=== PATIENT | male | born 1960 | race Caucasian/White ===

== ENCOUNTER 2019-11-15 08:42 | Inpatient (IN) ==
[2019-11-15] MEDS ORDERED: 0.9 % Sodium Chloride 1,000 ML IVC ONE (08:46)
[2019-11-15 08:59] LABS: Hematocrit 36.4 % (37.5-50.1); Hemoglobin 10.7 g/dL (12.9-16.9); Mean Corpuscular HGB Conc 29.4 g/dL (31.6-35.5); Mean Corpuscular Hemoglobin 26.2 pg (28.0-33.3); Mean Corpuscular Volume 89.2 fL (83.0-100.0); Mean Platelet Volume 10.7 fL (9.4-12.4); Platelet Count 199 K/mcL (140-400); Red Blood Count 4.08 M/mcL (4.19-5.50); Red Cell Distribution Width 14.6 % (11.5-14.5); White Blood Count 9.7 K/mcL (4.3-11.1)
[2019-11-15] MEDS ORDERED: Ipratropium/Albuterol Neb 3 ML IH ONE (09:06)
[2019-11-15 09:08] LABS: Prothrombin Time 10.9 Seconds (9.4-12.1)
[2019-11-15 09:31] LABS: Alanine Aminotransferase 17 Units/L (7-52); Albumin/Globulin Ratio 1.5 (1.1-2.2); Alkaline Phosphatase 59 Units/L (34-104); Aspartate Amino Transferase 14 Units/L (13-39); BUN/Creatinine Ratio 14 (6-26); Bilirubin,Indirect 0.3 mg/dL (0.0-1.0); Bilirubin,Total 0.3 mg/dL (0.3-1.0); Blood Urea Nitrogen 51 mg/dL (6-20); Calcium 9.4 mg/dL (8.6-10.3); Carbon Dioxide 27 mEq/L (23-29); Chloride 102 mEq/L (98-107); Globulin 2.7 g/dL (2.4-3.5); Glucose 96 mg/dL (70-105); Osmolality,Calculated 304 (280-300); Potassium 4.7 mEq/L (3.5-5.1); Sodium 140 mEq/L (136-145); Total Protein 6.7 g/dL (6.4-8.9); eGFR For African Americans 20 (> 60); eGFR For Non-African Americans 17 (> 60)
[2019-11-15 09:32] LABS: Troponin I < 0.03 ng/mL (< 0.04)
[2019-11-15 09:43] LABS: ABG Base Excess 0 mEq/L (-2 to 3); ABG HCO3 28 mEq/L (21-27); ABG Oxygen Saturation 91 % (95-98); ABG PCO2 56 mmHg (35-45); ABG PO2 68 mmHg (85-104); ABG TCO2 29 mEq/L (20-26)
[2019-11-15 11:38] LABS: Amphetamine Screen,Urine Negative ng/mL (Cutoff=1000); Barbiturate Screen,Urine Negative ng/mL (Cutoff=200); Benzodiazepines Screen,Urine Negative ng/mL (Cutoff=200); Cannabinoid Screen,Urine Negative ng/mL (Cutoff = 50); Cocaine Screen,Urine Negative ng/mL (Cutoff= 300); Opiate Screen,Urine Negative ng/mL (Cutoff=300); Phencyclidine Screen,Urine Negative ng/mL (Cutoff=25)
[2019-11-15 12:00] LABS: Bacteria,Urine Few per hpf (None-Few); Bilirubin,Urine Negative (Negative); Blood,Urine Trace (Negative); Calcium Oxalate Crystals,Urine Present; Clarity,Urine Clear (Clear); Color,Urine Yellow (Yellow); Glucose,Urine (UA) Normal (Normal); Hyaline Casts,Urine Many per lpf (None Seen); Ketones,Urine Negative (Negative); Leukocyte Esterase,Urine Negative (Negative); Mucus,Urine Few per lpf (None-Few); Nitrite,Urine Negative (Negative); PH,Urine 5.5 pH Units (5.0-8.0); Protein,Urine 50 mg/dL (Neg-Trace); RBC,Urine 0-3 per hpf (0-3); Specific Gravity,Urine 1.023 (1.010-1.025); Squamous Epithelial Cell,Urine Few per hpf (None-Few); Urobilinogen,Urine Normal (Normal)
[2019-11-15 13:12] LABS: Creatine Kinase 153 Units/L (30-223)
[2019-11-15 13:44] LABS: Adenovirus Not Detected (Not Detect); Bordetella Pertussis Not Detected (Not Detect); Chlamydophila pneumoniae Not Detected (Not Detect); Coronavirus 229E Not Detected (Not Detect); Coronavirus HKU1 Not Detected (Not Detect); Coronavirus NL63 Not Detected (Not Detect); Coronavirus OC43 Not Detected (Not Detect); Human Metapneumovirus Not Detected (Not Detect); Human Rhinovirus/Enterovirus Not Detected (Not Detect); Influenza A Subtype 2009 H1 Not Detected (Not Detect); Influenza B Not Detected (Not Detect); Mycoplasma pneumoniae Not Detected (Not Detect); Parainfluenza Virus 1 Not Detected (Not Detect); Parainfluenza Virus 2 Not Detected (Not Detect); Parainfluenza Virus 3 Not Detected (Not Detect); Parainfluenza Virus 4 Not Detected (Not Detect); Respiratory Syncytial Virus Not Detected (Not Detect)
[2019-11-15] MEDS ORDERED: Naloxone 0.4 MG/ML INJ IVP PRN ×2 (14:11→14:12)
[2019-11-15] MEDS ORDERED: Ondansetron 4 MG/2 ML VIAL IVP PRN (14:12)
[2019-11-15] MEDS ORDERED: D5% in Water 1,000 ML IVC PRN (15:20)
[2019-11-15] MEDS ORDERED: Dextrose Gel 15 GM/37.5 ML TUBE PO PRN ×2 (15:20)
[2019-11-15] MEDS ORDERED: *HR* Dextrose 50 % in Water (Vial) 50 ML VIAL IVP PRN (15:20)
[2019-11-15 15:40] LABS: ABG Base Excess 1 mEq/L (-2 to 3); ABG HCO3 29 mEq/L (21-27); ABG Oxygen Saturation 99 % (95-98); ABG PCO2 62 mmHg (35-45); ABG PH 7.28 pH Units (7.32-7.45); ABG PO2 134 mmHg (85-104); ABG TCO2 31 mEq/L (20-26); Blood Gas Modality avaps; Blood Gas Pressure Support 35 cm H2O; Blood Gas VT 500 cc
[2019-11-15] MEDS: Ipratropium/Albuterol Neb 3 ML IH SCH ×3 (15:55→23:21)
[2019-11-15] MEDS: 0.9 % Sodium Chloride 1,000 ML IVC SCH (18:02)
[2019-11-15] MEDS: *HR* Heparin 5,000 UNIT/ML VIAL SQ SCH (18:02)
[2019-11-15] MEDS: Insulin LISPRO 300 UNITS/3 ML VIAL SQ SCH ×3 (18:05→20:39)
[2019-11-15 21:06] LABS: Protein/Creatinine Ratio,Urine 0.3 mg/mg (0.00-0.20); Sodium, Urine 109.7 mEq/L
[2019-11-16 03:27] LABS: Basophils % 0.1 %; Eosinophils # 0.1 K/mcL (0.0-0.6); Eosinophils % 1.5 %; Hematocrit 32.9 % (37.5-50.1); Hemoglobin 9.9 g/dL (12.9-16.9); Immature Granulocytes % 0.1 % (0-4); Lymphocytes # 1.5 K/mcL (0.6-4.6); Lymphocytes % 22.9 %; Mean Corpuscular HGB Conc 30.1 g/dL (31.6-35.5); Mean Corpuscular Hemoglobin 26.4 pg (28.0-33.3); Mean Corpuscular Volume 87.7 fL (83.0-100.0); Mean Platelet Volume 11.2 fL (9.4-12.4); Monocytes # 0.4 K/mcL (0.0-1.3); Monocytes % 6.6 %; Neutrophils # 4.6 K/mcL (1.6-8.9); Platelet Count 199 K/mcL (140-400); Red Blood Count 3.75 M/mcL (4.19-5.50); Red Cell Distribution Width 14.8 % (11.5-14.5); Segmented Neutrophils % 68.8 %; White Blood Count 6.7 K/mcL (4.3-11.1)
[2019-11-16 03:51] LABS: Calcium 8.8 mg/dL (8.6-10.3); Phosphorous 3.8 mg/dL (2.7-4.5); Potassium 4.4 mEq/L (3.5-5.1)
[2019-11-16] MEDS: Ipratropium/Albuterol Neb 3 ML IH SCH ×6 (03:53→23:32)
[2019-11-16 04:07] LABS: Folate 12.1 ng/mL (3.0-16.0)
[2019-11-16] MEDS: Insulin LISPRO 300 UNITS/3 ML VIAL SQ SCH ×6 (05:57→20:33)
[2019-11-16] MEDS: *HR* Heparin 5,000 UNIT/ML VIAL SQ SCH ×2 (06:02→20:33)
[2019-11-16] MEDS: 0.9 % Sodium Chloride 1,000 ML IVC SCH (08:11)
[2019-11-16] MEDS: Acetylcysteine 10% 2 ML INHSOL IH SCH ×4 (10:52→23:31)
[2019-11-16] MEDS ORDERED: *HR* OxyCODONE/APAP 10/325 TABLET PO PRN (15:45)
[2019-11-16] MEDS ORDERED: Iron Sucrose Complex 250 MG in 0.9 % Sodium Chloride 250 ML IVPB ONE (16:10)
[2019-11-16] MEDS ORDERED: *HR* Dextrose 50 % in Water (Vial) 50 ML VIAL IVP PRN (16:11)
[2019-11-16] MEDS ORDERED: Dextrose Gel 15 GM/37.5 ML TUBE PO PRN ×2 (16:11)
[2019-11-16] MEDS ORDERED: D5% in Water 1,000 ML IVC PRN (16:11)
[2019-11-16] MEDS: Venlafaxine XR (24 HR) 150 MG CAP.ER.24H PO SCH (20:32)
[2019-11-16] MEDS: Aspirin 81 MG TAB.CHEW PO SCH (20:32)
[2019-11-16] MEDS: Gabapentin 300 MG CAPSULE PO SCH (20:32)
[2019-11-17] MEDS: 0.9 % Sodium Chloride 1,000 ML IVC SCH ×2 (00:34→12:17)
[2019-11-17 02:09] LABS: Basophils % 0.3 %; Eosinophils # 0.1 K/mcL (0.0-0.6); Eosinophils % 1.8 %; Hematocrit 32.4 % (37.5-50.1); Hemoglobin 9.8 g/dL (12.9-16.9); Immature Granulocytes % 0.4 % (0-4); Lymphocytes % 29.9 %; Mean Corpuscular HGB Conc 30.2 g/dL (31.6-35.5); Mean Corpuscular Hemoglobin 27.1 pg (28.0-33.3); Mean Corpuscular Volume 89.5 fL (83.0-100.0); Monocytes # 0.5 K/mcL (0.0-1.3); Monocytes % 7.4 %; Neutrophils # 4.1 K/mcL (1.6-8.9); Platelet Count 185 K/mcL (140-400); Red Blood Count 3.62 M/mcL (4.19-5.50); Red Cell Distribution Width 14.5 % (11.5-14.5); Segmented Neutrophils % 60.2 %; White Blood Count 6.8 K/mcL (4.3-11.1)
[2019-11-17] MEDS: Acetaminophen 325 MG TABLET PO PRN ×2 (02:12→21:15)
[2019-11-17 02:27] LABS: BUN/Creatinine Ratio 29 (6-26); Blood Urea Nitrogen 23 mg/dL (6-20); Calcium 8.5 mg/dL (8.6-10.3); Carbon Dioxide 27 mEq/L (23-29); Chloride 103 mEq/L (98-107); Glucose 90 mg/dL (70-105); Magnesium 1.7 mg/dL (1.6-2.6); Osmolality,Calculated 291 (280-300); Sodium 139 mEq/L (136-145); eGFR For African Americans > 60 (> 60); eGFR For Non-African Americans > 60 (> 60)
[2019-11-17] MEDS: Ipratropium/Albuterol Neb 3 ML IH SCH ×6 (03:19→23:50)
[2019-11-17] MEDS: Acetylcysteine 10% 2 ML INHSOL IH SCH ×6 (03:19→23:50)
[2019-11-17] MEDS: *HR* Heparin 5,000 UNIT/ML VIAL SQ SCH ×3 (06:42→21:17)
[2019-11-17] MEDS: Gabapentin 300 MG CAPSULE PO SCH ×3 (07:38→21:16)
[2019-11-17] MEDS: ARIPiprazole 10 MG TABLET PO SCH (07:39)
[2019-11-17] MEDS: Venlafaxine XR (24 HR) 150 MG CAP.ER.24H PO SCH ×2 (07:39→21:15)
[2019-11-17] MEDS: Insulin LISPRO 300 UNITS/3 ML VIAL SQ SCH ×4 (07:39→21:17)
[2019-11-17] MEDS: Ketoconazole 2% CRM 15 GM TUBE TP SCH (07:39)
[2019-11-17 14:50] LABS: Estimated Average Glucose 177 mg/dl
[2019-11-17] MEDS: Aspirin 81 MG TAB.CHEW PO SCH (21:15)
[2019-11-17] MEDS: Baclofen 10 MG TABLET PO PRN (23:52)
[2019-11-18 03:20] LABS: Basophils % 0.5 %; Eosinophils # 0.1 K/mcL (0.0-0.6); Eosinophils % 1.7 %; Hematocrit 31.5 % (37.5-50.1); Hemoglobin 9.6 g/dL (12.9-16.9); Immature Granulocytes % 0.2 % (0-4); Lymphocytes # 2.1 K/mcL (0.6-4.6); Mean Corpuscular HGB Conc 30.5 g/dL (31.6-35.5); Mean Corpuscular Hemoglobin 27.3 pg (28.0-33.3); Mean Corpuscular Volume 89.5 fL (83.0-100.0); Mean Platelet Volume 11.2 fL (9.4-12.4); Monocytes # 0.5 K/mcL (0.0-1.3); Monocytes % 7.2 %; Neutrophils # 3.7 K/mcL (1.6-8.9); Platelet Count 173 K/mcL (140-400); Red Blood Count 3.52 M/mcL (4.19-5.50); Red Cell Distribution Width 14.3 % (11.5-14.5); Segmented Neutrophils % 57.4 %; White Blood Count 6.4 K/mcL (4.3-11.1)
[2019-11-18 03:40] LABS: BUN/Creatinine Ratio 21 (6-26); Blood Urea Nitrogen 17 mg/dL (6-20); Calcium 8.8 mg/dL (8.6-10.3); Carbon Dioxide 29 mEq/L (23-29); Chloride 104 mEq/L (98-107); Glucose 100 mg/dL (70-105); Magnesium 1.7 mg/dL (1.6-2.6); Osmolality,Calculated 294 (280-300); Sodium 141 mEq/L (136-145); eGFR For African Americans > 60 (> 60); eGFR For Non-African Americans > 60 (> 60)
[2019-11-18] MEDS: Acetylcysteine 10% 2 ML INHSOL IH SCH ×6 (04:06→23:44)
[2019-11-18] MEDS: Ipratropium/Albuterol Neb 3 ML IH SCH ×6 (04:07→23:45)
[2019-11-18] MEDS: *HR* Heparin 5,000 UNIT/ML VIAL SQ SCH ×3 (04:50→22:21)
[2019-11-18] MEDS: Acetaminophen 325 MG TABLET PO PRN ×2 (05:46→22:21)
[2019-11-18] MEDS: ARIPiprazole 10 MG TABLET PO SCH (08:06)
[2019-11-18] MEDS: Venlafaxine XR (24 HR) 150 MG CAP.ER.24H PO SCH ×2 (08:07→19:45)
[2019-11-18] MEDS: Gabapentin 300 MG CAPSULE PO SCH ×3 (08:07→19:46)
[2019-11-18] MEDS: Ketoconazole 2% CRM 15 GM TUBE TP SCH (08:08)
[2019-11-18] MEDS: Insulin LISPRO 300 UNITS/3 ML VIAL SQ SCH ×4 (09:09→21:15)
[2019-11-18] MEDS: Baclofen 10 MG TABLET PO PRN (19:46)
[2019-11-18] MEDS: Aspirin 81 MG TAB.CHEW PO SCH (19:46)
[2019-11-19 02:10] LABS: Basophils % 0.4 %; Eosinophils # 0.1 K/mcL (0.0-0.6); Eosinophils % 1.8 %; Hematocrit 30.8 % (37.5-50.1); Hemoglobin 9.5 g/dL (12.9-16.9); Immature Granulocytes % 0.3 % (0-4); Lymphocytes # 2.4 K/mcL (0.6-4.6); Lymphocytes % 30.7 %; Mean Corpuscular HGB Conc 30.8 g/dL (31.6-35.5); Mean Corpuscular Hemoglobin 27.4 pg (28.0-33.3); Mean Corpuscular Volume 88.8 fL (83.0-100.0); Mean Platelet Volume 10.4 fL (9.4-12.4); Monocytes # 0.6 K/mcL (0.0-1.3); Monocytes % 7.6 %; Neutrophils # 4.6 K/mcL (1.6-8.9); Platelet Count 174 K/mcL (140-400); Red Blood Count 3.47 M/mcL (4.19-5.50); Red Cell Distribution Width 14.2 % (11.5-14.5); Segmented Neutrophils % 59.2 %; White Blood Count 7.8 K/mcL (4.3-11.1)
[2019-11-19 02:27] LABS: BUN/Creatinine Ratio 19 (6-26); Blood Urea Nitrogen 17 mg/dL (6-20); Calcium 8.6 mg/dL (8.6-10.3); Carbon Dioxide 27 mEq/L (23-29); Chloride 104 mEq/L (98-107); Glucose 87 mg/dL (70-105); Magnesium 1.5 mg/dL (1.6-2.6); Osmolality,Calculated 289 (280-300); Potassium 3.8 mEq/L (3.5-5.1); Sodium 139 mEq/L (136-145); eGFR For African Americans > 60 (> 60); eGFR For Non-African Americans > 60 (> 60)
[2019-11-19] MEDS: Acetylcysteine 10% 2 ML INHSOL IH SCH ×3 (04:05→11:18)
[2019-11-19] MEDS: Ipratropium/Albuterol Neb 3 ML IH SCH ×3 (04:05→11:16)
[2019-11-19] MEDS: *HR* Heparin 5,000 UNIT/ML VIAL SQ SCH ×2 (05:39→14:20)
[2019-11-19] MEDS: Insulin LISPRO 300 UNITS/3 ML VIAL SQ SCH ×2 (08:29→11:46)
[2019-11-19] MEDS: Gabapentin 300 MG CAPSULE PO SCH ×2 (08:35→14:25)
[2019-11-19] MEDS: Venlafaxine XR (24 HR) 150 MG CAP.ER.24H PO SCH (08:35)
[2019-11-19] MEDS: ARIPiprazole 10 MG TABLET PO SCH (08:36)
[2019-11-19] MEDS ORDERED: lisinopriL 20 MG TABLET PO SCH (09:00)
[2019-11-19 11:06] VITALS: BP 146/79
[2019-11-19] MEDS: Ketoconazole 2% CRM 15 GM TUBE TP SCH (11:46)
== END 2019-11-19 15:19 | disposition home or self-care (01) | DRG 91 ==
LOC: 2ANU 08:42 → EMEROOARM 08:42 → 2ANU 13:45 → SUATTDRO 13:48 → 2NNU 17:26
PROVIDERS: ADMIT Internal Medicine; ATTEND Pharmacist

== ENCOUNTER 2020-08-03 11:40 | Inpatient (IN) ==
[2020-08-03] MEDS ORDERED: 0.9 % Sodium Chloride 1,000 ML IVC ONE (12:07)
[2020-08-03] MEDS ORDERED: Ondansetron 4 MG/2 ML VIAL IVP ONE (12:07)
[2020-08-03] MEDS ORDERED: *HR* FentaNYL (PF) 100 MCG/2 ML VIAL IVP ONE (12:08)
[2020-08-03 12:28] LABS: Basophils % 0.3 %; Eosinophils # 0.1 K/mcL (0.0-0.6); Eosinophils % 0.7 %; Hematocrit 34.7 % (37.5-50.1); Immature Granulocytes % 0.2 % (0-4); Lymphocytes # 1.2 K/mcL (0.6-4.6); Lymphocytes % 13.8 %; Mean Corpuscular HGB Conc 28.8 g/dL (31.6-35.5); Mean Corpuscular Hemoglobin 22.7 pg (28.0-33.3); Mean Corpuscular Volume 78.9 fL (83.0-100.0); Mean Platelet Volume 10.1 fL (9.4-12.4); Monocytes # 0.6 K/mcL (0.0-1.3); Monocytes % 6.4 %; Neutrophils # 7.1 K/mcL (1.6-8.9); Platelet Count 225 K/mcL (140-400); Segmented Neutrophils % 78.6 %
[2020-08-03 12:37] LABS: INR 1.2; Prothrombin Time 13.3 Seconds (9.4-12.1)
[2020-08-03 12:39] LABS: Activated Partial Thrombo Time 28.5 Seconds (26.0-36.0)
[2020-08-03 12:46] LABS: Bilirubin,Urine Negative (Negative); Blood,Urine Negative (Negative); Clarity,Urine Clear (Clear); Color,Urine Light-Yellow (Yellow); Glucose,Urine (UA) Normal (Normal); Hyaline Casts,Urine Few per lpf (None Seen); Ketones,Urine Negative (Negative); Leukocyte Esterase,Urine Negative (Negative); Mucus,Urine Few per lpf (None-Few); Nitrite,Urine Negative (Negative); PH,Urine 8.5 pH Units (5.0-8.0); Protein,Urine 70 mg/dL (Neg-Trace); RBC,Urine 0-3 per hpf (0-3); Specific Gravity,Urine 1.022 (1.010-1.025); Squamous Epithelial Cell,Urine Few per hpf (None-Few); Urobilinogen,Urine Normal (Normal); WBC,Urine 0-3 per hpf (0-3)
[2020-08-03 12:50] LABS: Alanine Aminotransferase 22 Units/L (7-52); Albumin 4.1 g/dL (3.5-5.7); Albumin/Globulin Ratio 1.5 (1.1-2.2); Alkaline Phosphatase 73 Units/L (34-104); Aspartate Amino Transferase 13 Units/L (13-39); BUN/Creatinine Ratio 21 (6-26); Bilirubin,Direct 0.1 mg/dL (0.0-0.2); Bilirubin,Indirect 0.4 mg/dL (0.0-1.0); Bilirubin,Total 0.5 mg/dL (0.3-1.0); Blood Urea Nitrogen 15 mg/dL (8-23); Calcium 9.1 mg/dL (8.6-10.3); Carbon Dioxide 30 mEq/L (23-29); Chloride 99 mEq/L (98-107); Globulin 2.8 g/dL (2.4-3.5); Glucose 125 mg/dL (70-105); Lipase 15 Units/L (11-82); Osmolality,Calculated 286 (280-300); Potassium 3.8 mEq/L (3.5-5.1); Sodium 137 mEq/L (136-145); Total Protein 6.9 g/dL (6.4-8.9); eGFR For African Americans > 60 (> 60); eGFR For Non-African Americans > 60 (> 60)
[2020-08-03 12:55] LABS: Troponin I 0.04 ng/mL (< 0.04)
[2020-08-03] MEDS ORDERED: Naloxone 0.4 MG/ML INJ ONE (15:36)
[2020-08-03] MEDS ORDERED: Naloxone 0.4 MG/ML INJ IVP ONE (15:46)
[2020-08-03] MEDS ORDERED: MOM Conc 10 ML UD.LIQ PO PRN (16:13)
[2020-08-03] MEDS ORDERED: Naloxone 0.4 MG/ML INJ IVP PRN (16:13)
[2020-08-03] MEDS ORDERED: Mag Hydrox/Al Hydrox/Simeth 30 ML UDC PO PRN (16:13)
[2020-08-03] MEDS ORDERED: 0.9 % Sodium Chloride 1,000 ML IVC SCH (16:15)
[2020-08-03] MEDS ORDERED: D5% in Water 1,000 ML IVC PRN (16:17)
[2020-08-03] MEDS ORDERED: Dextrose Gel 15 GM/37.5 ML TUBE PO PRN ×2 (16:17)
[2020-08-03] MEDS ORDERED: *HR* Dextrose 50 % in Water (Vial) 50 ML VIAL IVP PRN (16:17)
[2020-08-03] MEDS ORDERED: Perflutren Lipid Microsphere 1.3 ML in 0.9 % Sodium Chloride 8.7 ML IVP PRN (16:19)
[2020-08-03] MEDS ORDERED: Furosemide 40 MG/4 ML VIAL IVP ONE (16:19)
[2020-08-03] MEDS ORDERED: Isovue-370 500 ML BOTTLE IVP ONE (17:51)
[2020-08-03 18:23] LABS: ABG Base Excess 6 mEq/L (-2 to 3); ABG HCO3 38 mEq/L (21-27); ABG Oxygen Saturation 83 % (95-98); ABG PCO2 102 mmHg (35-45); ABG PH 7.18 pH Units (7.32-7.45); ABG PO2 64 mmHg (85-104); ABG TCO2 41 mEq/L (20-26)
[2020-08-03] MEDS: Insulin LISPRO 300 UNITS/3 ML VIAL SUBQ SCH (18:45)
[2020-08-03 20:14] LABS: ABG Base Excess 8 mEq/L (-2 to 3); ABG HCO3 38 mEq/L (21-27); ABG Oxygen Saturation 95 % (95-98); ABG PCO2 91 mmHg (35-45); ABG PH 7.23 pH Units (7.32-7.45); ABG PO2 92 mmHg (85-104); ABG TCO2 41 mEq/L (20-26); Blood Gas Modality avaps; Blood Gas Pressure Support 10 cm H2O; Blood Gas VT 500 cc
[2020-08-03] MEDS: Melatonin 3 MG TABLET PO PRN (22:38)
[2020-08-04] MEDS: Ondansetron 4 MG/2 ML VIAL IVP PRN (00:03)
[2020-08-04] MEDS: Insulin LISPRO 300 UNITS/3 ML VIAL SUBQ SCH ×4 (00:22→17:31)
[2020-08-04] MEDS ORDERED: Ondansetron 4 MG/2 ML VIAL IM ONE (00:46)
[2020-08-04] MEDS ORDERED: Ondansetron 4 MG/2 ML VIAL IVP ONE (01:01)
[2020-08-04 01:21] LABS: Red Cell Distribution Width 16.2 % (11.5-14.5)
[2020-08-04 01:22] LABS: Hematocrit 37.2 % (37.5-50.1); Hemoglobin 10.6 g/dL (12.9-16.9); Mean Corpuscular HGB Conc 28.5 g/dL (31.6-35.5); Mean Corpuscular Volume 80.7 fL (83.0-100.0); Mean Platelet Volume 10.1 fL (9.4-12.4); Platelet Count 254 K/mcL (140-400); Red Blood Count 4.61 M/mcL (4.19-5.50); White Blood Count 12.4 K/mcL (4.3-11.1)
[2020-08-04 01:43] LABS: Alanine Aminotransferase 23 Units/L (7-52); Albumin 4.1 g/dL (3.5-5.7); Albumin/Globulin Ratio 1.3 (1.1-2.2); Alkaline Phosphatase 78 Units/L (34-104); Aspartate Amino Transferase 14 Units/L (13-39); BUN/Creatinine Ratio 20 (6-26); Bilirubin,Total 0.5 mg/dL (0.3-1.0); Blood Urea Nitrogen 15 mg/dL (8-23); Calcium 8.9 mg/dL (8.6-10.3); Carbon Dioxide 32 mEq/L (23-29); Chloride 97 mEq/L (98-107); Globulin 3.2 g/dL (2.4-3.5); Glucose 170 mg/dL (70-105); Lipase 10 Units/L (11-82); Osmolality,Calculated 291 (280-300); Potassium 4.5 mEq/L (3.5-5.1); Sodium 138 mEq/L (136-145); Total Protein 7.3 g/dL (6.4-8.9); Triglycerides 89 mg/dL (< 150); eGFR For African Americans > 60 (> 60); eGFR For Non-African Americans > 60 (> 60)
[2020-08-04] MEDS ORDERED: Dexmedetomidine HCl 400 MCG/100 ML MLS IVC SCH (03:00)
[2020-08-04] MEDS: *HR* Enoxaparin 40 MG/0.4 ML SYRINGE SQ SCH (05:21)
[2020-08-04] MEDS: Furosemide 20 MG/2 ML VIAL IVP SCH ×2 (08:16→17:31)
[2020-08-04] MEDS: Doxycycline 100 MG in 0.9 % Sodium Chloride Mini Bag 100 ML IVPB SCH ×2 (08:16→17:30)
[2020-08-04] MEDS: Ipratropium/Albuterol Neb 3 ML IH SCH ×5 (08:37→23:35)
[2020-08-04 08:47] LABS: ABG Base Excess 11 mEq/L (-2 to 3); ABG HCO3 43 mEq/L (21-27); ABG Oxygen Saturation 93 % (95-98); ABG PCO2 103 mmHg (35-45); ABG PH 7.23 pH Units (7.32-7.45); ABG PO2 86 mmHg (85-104); ABG TCO2 46 mEq/L (20-26); Blood Gas Modality AVAPS; Blood Gas VT 500 cc
[2020-08-04] MEDS ORDERED: methylPREDNISolone 125 MG/2 ML VIAL IVP ONE (08:48)
[2020-08-04] MEDS: MethylPREDNISolone 40 MG/ML VIAL IVP SCH ×2 (15:40→22:54)
[2020-08-04] MEDS ORDERED: *HR* LORazepam 2 MG/ML VIAL ONE (19:27)
[2020-08-04] MEDS: *HR* LORazepam 2 MG/ML VIAL IVP ONE ×2 (19:28→19:33)
[2020-08-04] MEDS ORDERED: Acetaminophen 325 MG TABLET PO PRN (20:54)
[2020-08-04] MEDS ORDERED: Ketorolac 15 MG/ML VIAL IVP ONE (22:41)
[2020-08-04] MEDS: Melatonin 3 MG TABLET PO PRN (22:54)
[2020-08-05] MEDS: Insulin LISPRO 300 UNITS/3 ML VIAL SUBQ SCH ×6 (01:18→20:54)
[2020-08-05 02:47] LABS: Basophils % 0.1 %
[2020-08-05 02:49] LABS: Hematocrit 36.5 % (37.5-50.1); Hemoglobin 9.9 g/dL (12.9-16.9); Immature Granulocytes % 0.5 % (0-4); Lymphocytes # 0.8 K/mcL (0.6-4.6); Lymphocytes % 9.8 %; Mean Corpuscular HGB Conc 27.1 g/dL (31.6-35.5); Mean Corpuscular Hemoglobin 22.4 pg (28.0-33.3); Mean Corpuscular Volume 82.6 fL (83.0-100.0); Mean Platelet Volume 10.2 fL (9.4-12.4); Monocytes # 0.4 K/mcL (0.0-1.3); Monocytes % 4.4 %; Platelet Count 186 K/mcL (140-400); Red Blood Count 4.42 M/mcL (4.19-5.50); Red Cell Distribution Width 15.8 % (11.5-14.5); Segmented Neutrophils % 85.2 %; White Blood Count 8.2 K/mcL (4.3-11.1)
[2020-08-05 02:59] LABS: BUN/Creatinine Ratio 32 (6-26); Blood Urea Nitrogen 26 mg/dL (8-23); Calcium 9.1 mg/dL (8.6-10.3); Carbon Dioxide 38 mEq/L (23-29); Chloride 95 mEq/L (98-107); Glucose 138 mg/dL (70-105); Magnesium 2.2 mg/dL (1.6-2.6); Osmolality,Calculated 295 (280-300); Phosphorous 4.2 mg/dL (2.7-4.5); Potassium 4.4 mEq/L (3.5-5.1); Sodium 139 mEq/L (136-145); eGFR For African Americans > 60 (> 60); eGFR For Non-African Americans > 60 (> 60)
[2020-08-05 03:36] LABS: Anisocytosis 1+ (Not Present); Hypochromasia Present (Not Present); Platelet Estimate Normal (Normal)
[2020-08-05] MEDS: Ipratropium/Albuterol Neb 3 ML IH SCH ×6 (04:04→23:25)
[2020-08-05] MEDS ORDERED: *HR* LORazepam 2 MG/ML VIAL IVP ONE (04:22)
[2020-08-05] MEDS: Ondansetron 4 MG/2 ML VIAL IVP PRN (04:36)
[2020-08-05] MEDS: *HR* Enoxaparin 40 MG/0.4 ML SYRINGE SQ SCH (06:15)
[2020-08-05] MEDS: Doxycycline 100 MG in 0.9 % Sodium Chloride Mini Bag 100 ML IVPB SCH ×2 (06:17→17:04)
[2020-08-05] MEDS: MethylPREDNISolone 40 MG/ML VIAL IVP SCH ×2 (07:57→17:05)
[2020-08-05] MEDS: Furosemide 20 MG/2 ML VIAL IVP SCH ×2 (07:57→17:05)
[2020-08-05] MEDS ORDERED: *HR* OxyCODONE/APAP 10/325 TABLET PO PRN (14:11)
[2020-08-05 18:34] LABS: Adenovirus Not Detected (Not Detect); Bordetella Pertussis Not Detected (Not Detect); Chlamydophila pneumoniae Not Detected (Not Detect); Coronavirus 229E Not Detected (Not Detect); Coronavirus HKU1 Not Detected (Not Detect); Coronavirus NL63 Not Detected (Not Detect); Coronavirus OC43 Not Detected (Not Detect); Human Metapneumovirus Not Detected (Not Detect); Human Rhinovirus/Enterovirus Not Detected (Not Detect); Influenza A Subtype 2009 H1 Not Detected (Not Detect); Influenza B Not Detected (Not Detect); Mycoplasma pneumoniae Not Detected (Not Detect); Parainfluenza Virus 1 Not Detected (Not Detect); Parainfluenza Virus 2 Not Detected (Not Detect); Parainfluenza Virus 3 Not Detected (Not Detect); Parainfluenza Virus 4 Not Detected (Not Detect); Respiratory Syncytial Virus Not Detected (Not Detect); SARS-CoV-2 Not Detected (Not Detect)
[2020-08-05] MEDS: Aspirin 81 MG TAB.CHEW PO SCH (20:53)
[2020-08-05] MEDS: Venlafaxine XR (24 HR) 150 MG CAP.ER.24H PO SCH (20:53)
[2020-08-05] MEDS: Acetaminophen 325 MG TABLET PO PRN (22:13)
[2020-08-06] MEDS: Melatonin 3 MG TABLET PO PRN (01:47)
[2020-08-06] MEDS: Ipratropium/Albuterol Neb 3 ML IH SCH ×6 (03:11→23:28)
[2020-08-06] MEDS: *HR* Enoxaparin 40 MG/0.4 ML SYRINGE SQ SCH (05:48)
[2020-08-06] MEDS: Doxycycline 100 MG in 0.9 % Sodium Chloride Mini Bag 100 ML IVPB SCH (05:48)
[2020-08-06] MEDS: MethylPREDNISolone 40 MG/ML VIAL IVP SCH ×2 (05:48→16:14)
[2020-08-06 06:01] LABS: Hematocrit 34.2 % (37.5-50.1); Hemoglobin 10.2 g/dL (12.9-16.9)
[2020-08-06 06:24] LABS: BUN/Creatinine Ratio 40 (6-26); Blood Urea Nitrogen 33 mg/dL (8-23); Calcium 9.1 mg/dL (8.6-10.3); Carbon Dioxide 39 mEq/L (23-29); Chloride 89 mEq/L (98-107); Glucose 117 mg/dL (70-105); Osmolality,Calculated 288 (280-300); Phosphorous 3.3 mg/dL (2.7-4.5); Potassium 3.5 mEq/L (3.5-5.1); Sodium 135 mEq/L (136-145); eGFR For African Americans > 60 (> 60); eGFR For Non-African Americans > 60 (> 60)
[2020-08-06] MEDS: Acetaminophen 325 MG TABLET PO PRN (06:35)
[2020-08-06] MEDS: Furosemide 20 MG/2 ML VIAL IVP SCH (08:51)
[2020-08-06] MEDS: lisinopriL 20 MG TABLET PO SCH (08:51)
[2020-08-06] MEDS: Venlafaxine XR (24 HR) 150 MG CAP.ER.24H PO SCH ×2 (08:51→20:29)
[2020-08-06] MEDS: ARIPiprazole 10 MG TABLET PO SCH (08:52)
[2020-08-06] MEDS: Insulin LISPRO 300 UNITS/3 ML VIAL SUBQ SCH ×4 (08:52→20:29)
[2020-08-06] MEDS ORDERED: *HR* LORazepam 1 MG TABLET PO ONE (09:57)
[2020-08-06] MEDS: Doxycycline 100 MG CAPSULE PO SCH (16:14)
[2020-08-06] MEDS: Aspirin 81 MG TAB.CHEW PO SCH (20:29)
[2020-08-06] MEDS: *HR* OxyCODONE/APAP 10/325 TABLET PO PRN (23:34)
[2020-08-07] MEDS: Ipratropium/Albuterol Neb 3 ML IH SCH ×6 (03:44→23:59)
[2020-08-07] MEDS: Doxycycline 100 MG CAPSULE PO SCH ×2 (05:38→17:33)
[2020-08-07] MEDS: MethylPREDNISolone 40 MG/ML VIAL IVP SCH (05:38)
[2020-08-07] MEDS: *HR* Enoxaparin 40 MG/0.4 ML SYRINGE SQ SCH (05:39)
[2020-08-07] MEDS: ARIPiprazole 10 MG TABLET PO SCH (08:39)
[2020-08-07] MEDS: lisinopriL 20 MG TABLET PO SCH (08:39)
[2020-08-07] MEDS: Furosemide 40 MG TABLET PO SCH (08:39)
[2020-08-07] MEDS: Insulin LISPRO 300 UNITS/3 ML VIAL SUBQ SCH ×4 (08:40→19:39)
[2020-08-07] MEDS: Venlafaxine XR (24 HR) 150 MG CAP.ER.24H PO SCH ×2 (08:40→19:38)
[2020-08-07] MEDS: Aspirin 81 MG TAB.CHEW PO SCH (19:38)
[2020-08-07] MEDS: *HR* OxyCODONE/APAP 10/325 TABLET PO PRN (19:38)
[2020-08-08] MEDS: Ipratropium/Albuterol Neb 3 ML IH SCH ×6 (03:45→23:47)
[2020-08-08] MEDS: *HR* OxyCODONE/APAP 10/325 TABLET PO PRN ×2 (04:21→17:05)
[2020-08-08] MEDS: Doxycycline 100 MG CAPSULE PO SCH ×2 (04:21→17:05)
[2020-08-08] MEDS: *HR* Enoxaparin 40 MG/0.4 ML SYRINGE SQ SCH (04:21)
[2020-08-08] MEDS: ARIPiprazole 10 MG TABLET PO SCH (08:36)
[2020-08-08] MEDS: lisinopriL 20 MG TABLET PO SCH (08:36)
[2020-08-08] MEDS: Insulin LISPRO 300 UNITS/3 ML VIAL SUBQ SCH ×4 (08:37→19:39)
[2020-08-08] MEDS: Venlafaxine XR (24 HR) 150 MG CAP.ER.24H PO SCH ×2 (08:37→19:49)
[2020-08-08] MEDS: Furosemide 40 MG TABLET PO SCH (08:37)
[2020-08-08] MEDS: Aspirin 81 MG TAB.CHEW PO SCH (19:49)
[2020-08-08] MEDS: Melatonin 3 MG TABLET PO PRN (19:49)
[2020-08-09] MEDS: *HR* OxyCODONE/APAP 10/325 TABLET PO PRN ×3 (03:30→22:16)
[2020-08-09] MEDS: Ipratropium/Albuterol Neb 3 ML IH SCH ×6 (03:55→23:01)
[2020-08-09] MEDS: *HR* Enoxaparin 40 MG/0.4 ML SYRINGE SQ SCH (05:28)
[2020-08-09] MEDS: Doxycycline 100 MG CAPSULE PO SCH ×2 (05:28→17:48)
[2020-08-09] MEDS: ARIPiprazole 10 MG TABLET PO SCH (08:38)
[2020-08-09] MEDS: Insulin LISPRO 300 UNITS/3 ML VIAL SUBQ SCH ×4 (08:38→20:53)
[2020-08-09] MEDS: Venlafaxine XR (24 HR) 150 MG CAP.ER.24H PO SCH ×2 (08:38→20:15)
[2020-08-09] MEDS: Furosemide 40 MG TABLET PO SCH (08:38)
[2020-08-09] MEDS: lisinopriL 20 MG TABLET PO SCH (08:38)
[2020-08-09] MEDS: Aspirin 81 MG TAB.CHEW PO SCH (20:15)
[2020-08-09] MEDS: Melatonin 3 MG TABLET PO PRN (22:17)
[2020-08-10] MEDS: Ipratropium/Albuterol Neb 3 ML IH SCH ×5 (03:55→20:22)
[2020-08-10] MEDS: Simethicone 80 MG TAB.CHEW PO PRN ×3 (03:58→20:11)
[2020-08-10] MEDS: Doxycycline 100 MG CAPSULE PO SCH ×2 (06:26→17:03)
[2020-08-10] MEDS: *HR* Enoxaparin 40 MG/0.4 ML SYRINGE SQ SCH (06:27)
[2020-08-10 07:29] LABS: Hematocrit 37.9 % (37.5-50.1); Hemoglobin 10.5 g/dL (12.9-16.9); Mean Corpuscular HGB Conc 27.7 g/dL (31.6-35.5); Mean Corpuscular Hemoglobin 22.9 pg (28.0-33.3); Mean Corpuscular Volume 82.6 fL (83.0-100.0); Mean Platelet Volume 10.4 fL (9.4-12.4); Platelet Count 196 K/mcL (140-400); Red Blood Count 4.59 M/mcL (4.19-5.50); Red Cell Distribution Width 16.8 % (11.5-14.5); White Blood Count 8.4 K/mcL (4.3-11.1)
[2020-08-10] MEDS: Venlafaxine XR (24 HR) 150 MG CAP.ER.24H PO SCH ×2 (07:42→20:11)
[2020-08-10] MEDS: lisinopriL 20 MG TABLET PO SCH (07:42)
[2020-08-10] MEDS: Furosemide 40 MG TABLET PO SCH (07:42)
[2020-08-10] MEDS: *HR* OxyCODONE/APAP 10/325 TABLET PO PRN ×2 (07:43→17:03)
[2020-08-10] MEDS: ARIPiprazole 10 MG TABLET PO SCH (07:43)
[2020-08-10] MEDS: Insulin LISPRO 300 UNITS/3 ML VIAL SUBQ SCH ×4 (07:43→20:13)
[2020-08-10 07:49] LABS: BUN/Creatinine Ratio 30 (6-26); Blood Urea Nitrogen 26 mg/dL (8-23); Calcium 8.6 mg/dL (8.6-10.3); Carbon Dioxide 35 mEq/L (23-29); Chloride 97 mEq/L (98-107); Glucose 124 mg/dL (70-105); Osmolality,Calculated 294 (280-300); Potassium 3.8 mEq/L (3.5-5.1); Sodium 139 mEq/L (136-145); eGFR For African Americans > 60 (> 60); eGFR For Non-African Americans > 60 (> 60)
[2020-08-10] MEDS: Acetaminophen 325 MG TABLET PO PRN (20:11)
[2020-08-10] MEDS: Aspirin 81 MG TAB.CHEW PO SCH (20:11)
[2020-08-10] MEDS: Melatonin 3 MG TABLET PO PRN (23:33)
[2020-08-11] MEDS: Ipratropium/Albuterol Neb 3 ML IH SCH ×6 (00:07→20:23)
[2020-08-11] MEDS: Doxycycline 100 MG CAPSULE PO SCH (05:46)
[2020-08-11] MEDS: *HR* Enoxaparin 40 MG/0.4 ML SYRINGE SQ SCH (05:46)
[2020-08-11] MEDS: lisinopriL 20 MG TABLET PO SCH (09:09)
[2020-08-11] MEDS: ARIPiprazole 10 MG TABLET PO SCH (09:09)
[2020-08-11] MEDS: Insulin LISPRO 300 UNITS/3 ML VIAL SUBQ SCH ×4 (09:09→20:07)
[2020-08-11] MEDS: Venlafaxine XR (24 HR) 150 MG CAP.ER.24H PO SCH ×2 (09:09→20:07)
[2020-08-11] MEDS: Furosemide 40 MG TABLET PO SCH (09:09)
[2020-08-11] MEDS: *HR* OxyCODONE/APAP 10/325 TABLET PO PRN (11:04)
[2020-08-11] MEDS: Melatonin 3 MG TABLET PO PRN (20:07)
[2020-08-11] MEDS: Aspirin 81 MG TAB.CHEW PO SCH (20:07)
[2020-08-12] MEDS: Ipratropium/Albuterol Neb 3 ML IH SCH ×7 (00:08→23:09)
[2020-08-12] MEDS: *HR* Enoxaparin 40 MG/0.4 ML SYRINGE SQ SCH (06:44)
[2020-08-12] MEDS: Insulin LISPRO 300 UNITS/3 ML VIAL SUBQ SCH ×4 (08:29→22:25)
[2020-08-12] MEDS: lisinopriL 20 MG TABLET PO SCH (08:52)
[2020-08-12] MEDS: ARIPiprazole 10 MG TABLET PO SCH (08:53)
[2020-08-12] MEDS: Furosemide 40 MG TABLET PO SCH (08:53)
[2020-08-12] MEDS: Venlafaxine XR (24 HR) 150 MG CAP.ER.24H PO SCH ×2 (08:53→20:10)
[2020-08-12] MEDS: Aspirin 81 MG TAB.CHEW PO SCH (20:11)
[2020-08-12] MEDS: *HR* OxyCODONE/APAP 10/325 TABLET PO PRN (20:11)
[2020-08-13] MEDS: Ipratropium/Albuterol Neb 3 ML IH SCH ×5 (03:40→20:29)
[2020-08-13] MEDS: *HR* Enoxaparin 40 MG/0.4 ML SYRINGE SQ SCH (06:05)
[2020-08-13] MEDS: Insulin LISPRO 300 UNITS/3 ML VIAL SUBQ SCH ×4 (07:48→21:38)
[2020-08-13] MEDS: Venlafaxine XR (24 HR) 150 MG CAP.ER.24H PO SCH ×2 (07:49→21:37)
[2020-08-13] MEDS: lisinopriL 20 MG TABLET PO SCH (07:49)
[2020-08-13] MEDS: Furosemide 40 MG TABLET PO SCH (07:49)
[2020-08-13] MEDS: ARIPiprazole 10 MG TABLET PO SCH (07:49)
[2020-08-13] MEDS: *HR* OxyCODONE/APAP 10/325 TABLET PO PRN ×2 (07:55→16:01)
[2020-08-13] MEDS: Aspirin 81 MG TAB.CHEW PO SCH (21:37)
[2020-08-14] MEDS: Ipratropium/Albuterol Neb 3 ML IH SCH ×7 (00:11→22:53)
[2020-08-14] MEDS: *HR* Enoxaparin 40 MG/0.4 ML SYRINGE SQ SCH (04:18)
[2020-08-14] MEDS: Venlafaxine XR (24 HR) 150 MG CAP.ER.24H PO SCH ×2 (09:09→20:58)
[2020-08-14] MEDS: Insulin LISPRO 300 UNITS/3 ML VIAL SUBQ SCH ×4 (09:09→20:58)
[2020-08-14] MEDS: ARIPiprazole 10 MG TABLET PO SCH (09:10)
[2020-08-14] MEDS: lisinopriL 20 MG TABLET PO SCH (09:10)
[2020-08-14] MEDS: Furosemide 40 MG TABLET PO SCH (09:10)
[2020-08-14] MEDS ORDERED: Nicotine 14 MG PATCH.TD24 TD SCH (12:15)
[2020-08-14] MEDS: *HR* OxyCODONE/APAP 10/325 TABLET PO PRN ×2 (12:46→20:58)
[2020-08-14] MEDS: Aspirin 81 MG TAB.CHEW PO SCH (20:58)
[2020-08-15] MEDS: Ipratropium/Albuterol Neb 3 ML IH SCH ×4 (03:49→15:29)
[2020-08-15] MEDS: *HR* Enoxaparin 40 MG/0.4 ML SYRINGE SQ SCH (06:12)
[2020-08-15] MEDS: ARIPiprazole 10 MG TABLET PO SCH (08:32)
[2020-08-15] MEDS: lisinopriL 20 MG TABLET PO SCH (08:32)
[2020-08-15] MEDS: Venlafaxine XR (24 HR) 150 MG CAP.ER.24H PO SCH (08:32)
[2020-08-15] MEDS: Insulin LISPRO 300 UNITS/3 ML VIAL SUBQ SCH ×2 (08:33→12:36)
[2020-08-15] MEDS: Furosemide 40 MG TABLET PO SCH (08:33)
[2020-08-15 16:13] VITALS: BP 105/64
== END 2020-08-15 16:42 | disposition home or self-care (01) | DRG 438 ==
LOC: EMEROOARM 11:40 → 3BNU 11:40 → 2NNU 18:33 → SUATTDRO 08-04 12:30 → 2ANU 08-05 18:45
PROVIDERS: ADMIT Internal Medicine; ATTEND Internal Medicine

== ENCOUNTER 2021-01-30 03:26 | Inpatient (IN) ==
[2021-01-30] MEDS ORDERED: *HR* Metoprolol 5 MG/5 ML VIAL IVP ONE ×2 (03:46→04:12)
[2021-01-30] MEDS ORDERED: *HR* Adenosine 6 MG/2 ML SYRINGE IVP ONE ×3 (03:47→03:49)
[2021-01-30] MEDS ORDERED: *HR* Adenosine 6 MG/2 ML VIAL IVP ONE ×3 (03:47→03:54)
[2021-01-30] MEDS ORDERED: 0.9 % Sodium Chloride 1,000 ML ONE (03:48)
[2021-01-30] MEDS ORDERED: *HR* Midazolam HCl 2 MG/2 ML VIAL ONE (03:56)
[2021-01-30] MEDS ORDERED: *HR* Midazolam HCl 2 MG/2 ML VIAL IVP ONE (03:58)
[2021-01-30] MEDS ORDERED: Aspirin 81 MG TAB.CHEW PO ONE (04:02)
[2021-01-30] MEDS ORDERED: Isovue-370 500 ML BOTTLE IVP ONE ×2 (04:02→08:03)
[2021-01-30 04:30] LABS: Basophils % 0.2 %; Eosinophils % 0.2 %; Hematocrit 40.8 % (37.5-50.1); Hemoglobin 12.3 g/dL (12.9-16.9); Immature Granulocytes % 0.5 % (0-4); Lymphocytes # 0.7 K/mcL (0.6-4.6); Lymphocytes % 4.9 %; Mean Corpuscular HGB Conc 30.1 g/dL (31.6-35.5); Mean Corpuscular Volume 89.5 fL (83.0-100.0); Mean Platelet Volume 10.4 fL (9.4-12.4); Monocytes # 0.7 K/mcL (0.0-1.3); Monocytes % 4.7 %; Neutrophils # 13.5 K/mcL (1.6-8.9); Platelet Count 195 K/mcL (140-400); Red Blood Count 4.56 M/mcL (4.19-5.50); Red Cell Distribution Width 14.2 % (11.5-14.5); Segmented Neutrophils % 89.5 %; White Blood Count 15.1 K/mcL (4.3-11.1)
[2021-01-30] MEDS ORDERED: cefTRIAXone 2,000 MG in Water for inj. (sterile) 20 ML IVP ONE (04:34)
[2021-01-30] MEDS ORDERED: Azithromycin 500 MG in 0.9 % Sodium Chloride 250 ML IVPB ONE (04:34)
[2021-01-30 04:40] LABS: VBG HCO3 28 mEq/L (21-27); VBG PCO2 58 mmHg (41-51); VBG PH 7.29 pH Units (7.32-7.42); VBG PO2 89 mmHg (25-50)
[2021-01-30 04:47] LABS: BUN/Creatinine Ratio 21 (6-26); Blood Urea Nitrogen 20 mg/dL (8-23); Calcium 9.4 mg/dL (8.6-10.3); Carbon Dioxide 28 mEq/L (23-29); Chloride 97 mEq/L (98-107); Glucose 214 mg/dL (70-105); Osmolality,Calculated 291 (280-300); Potassium 4.2 mEq/L (3.5-5.1); Sodium 136 mEq/L (136-145); eGFR For African Americans > 60 (> 60); eGFR For Non-African Americans > 60 (> 60)
[2021-01-30 04:51] LABS: Prothrombin Time 11.5 Seconds (9.4-12.1)
[2021-01-30 04:53] LABS: Activated Partial Thrombo Time 29.9 Seconds (26.0-36.0)
[2021-01-30 05:07] LABS: Thyroid Stimulating Hormone 0.968 mcIU/mL (0.340-5.600)
[2021-01-30 05:21] LABS: Adenovirus Not Detected (Not Detect); Bordetella Pertussis Not Detected (Not Detect); Chlamydophila pneumoniae Not Detected (Not Detect); Coronavirus 229E Not Detected (Not Detect); Coronavirus HKU1 Not Detected (Not Detect); Coronavirus NL63 Not Detected (Not Detect); Coronavirus OC43 Not Detected (Not Detect); Human Metapneumovirus Not Detected (Not Detect); Human Rhinovirus/Enterovirus Not Detected (Not Detect); Influenza A Subtype 2009 H1 Not Detected (Not Detect); Influenza B Not Detected (Not Detect); Mycoplasma pneumoniae Not Detected (Not Detect); Parainfluenza Virus 1 Not Detected (Not Detect); Parainfluenza Virus 2 Not Detected (Not Detect); Parainfluenza Virus 3 Not Detected (Not Detect); Parainfluenza Virus 4 Not Detected (Not Detect); Respiratory Syncytial Virus Not Detected (Not Detect); SARS-CoV-2 Not Detected (Not Detect)
[2021-01-30 05:34] LABS: Troponin I < 0.03 ng/mL (< 0.04)
[2021-01-30 07:43] LABS: ABG Base Excess 2 mEq/L (-2 to 3); ABG HCO3 30 mEq/L (21-27); ABG Oxygen Saturation 98 % (95-98); ABG PCO2 67 mmHg (35-45); ABG PH 7.26 pH Units (7.32-7.45); ABG PO2 121 mmHg (85-104); ABG TCO2 32 mEq/L (20-26)
[2021-01-30 07:55] LABS: Hemoglobin 11.5 g/dL (12.9-16.9); Mean Corpuscular HGB Conc 30.3 g/dL (31.6-35.5); Mean Corpuscular Hemoglobin 27.1 pg (28.0-33.3); Mean Corpuscular Volume 89.6 fL (83.0-100.0); Mean Platelet Volume 10.2 fL (9.4-12.4); Platelet Count 173 K/mcL (140-400); Red Blood Count 4.24 M/mcL (4.19-5.50); Red Cell Distribution Width 14.3 % (11.5-14.5); White Blood Count 24.9 K/mcL (4.3-11.1)
[2021-01-30] MEDS ORDERED: Naloxone 0.4 MG/ML INJ IVP PRN (07:58)
[2021-01-30] MEDS ORDERED: Perflutren Lipid Microsphere 1.3 ML in 0.9 % Sodium Chloride 8.7 ML IVP PRN (08:05)
[2021-01-30 08:09] LABS: Bilirubin,Urine Negative (Negative); Blood,Urine Negative (Negative); Clarity,Urine Clear (Clear); Color,Urine Yellow (Yellow); Glucose,Urine (UA) 70 mg/dL (Normal); Ketones,Urine Trace mg/dL (Negative); Leukocyte Esterase,Urine Negative (Negative); Mucus,Urine Few per lpf (None-Few); Nitrite,Urine Negative (Negative); Protein,Urine 100 mg/dL (Neg-Trace); RBC,Urine 0-3 per hpf (0-3); Specific Gravity,Urine > 1.030 (1.010-1.025); Squamous Epithelial Cell,Urine Few per hpf (None-Few); Urobilinogen,Urine Normal (Normal); WBC,Urine 0-3 per hpf (0-3)
[2021-01-30 08:31] LABS: Alanine Aminotransferase 21 Units/L (7-52); Albumin/Globulin Ratio 1.4 (1.1-2.2); Alkaline Phosphatase 69 Units/L (34-104); Aspartate Amino Transferase 16 Units/L (13-39); BUN/Creatinine Ratio 18 (6-26); Bilirubin,Direct 0.1 mg/dL (0.0-0.2); Bilirubin,Indirect 0.3 mg/dL (0.0-1.0); Bilirubin,Total 0.4 mg/dL (0.3-1.0); Blood Urea Nitrogen 23 mg/dL (8-23); Calcium 8.9 mg/dL (8.6-10.3); Carbon Dioxide 31 mEq/L (23-29); Chloride 99 mEq/L (98-107); Globulin 2.9 g/dL (2.4-3.5); Glucose 193 mg/dL (70-105); Magnesium 1.5 mg/dL (1.6-2.6); Osmolality,Calculated 291 (280-300); Potassium 5.1 mEq/L (3.5-5.1); Sodium 136 mEq/L (136-145); Total Protein 6.9 g/dL (6.4-8.9); Troponin I 0.12 ng/mL (< 0.04); eGFR For African Americans > 60 (> 60); eGFR For Non-African Americans 56 (> 60)
[2021-01-30 08:42] LABS: Monocytes # 1.5 K/mcL (0.0-1.3); Neutrophils # 22.4 K/mcL (1.6-8.9); Platelet Estimate Normal (Normal)
[2021-01-30] MEDS: Piperacillin/Tazobactam 3.375 GM in 0.9 % Sodium Chloride Mini Bag 100 ML IVPB SCH ×2 (08:54→17:22)
[2021-01-30] MEDS: 0.9 % Sodium Chloride 1,000 ML IVC SCH (08:55)
[2021-01-30 09:09] LABS: Amphetamine Screen,Urine Negative ng/mL (Cutoff=1000); Barbiturate Screen,Urine Negative ng/mL (Cutoff=200); Benzodiazepines Screen,Urine Positive ng/mL (Cutoff=200); Cannabinoid Screen,Urine Negative ng/mL (Cutoff = 50); Cocaine Screen,Urine Negative ng/mL (Cutoff= 300); Opiate Screen,Urine Positive ng/mL (Cutoff=300); Phencyclidine Screen,Urine Negative ng/mL (Cutoff=25)
[2021-01-30] MEDS ORDERED: *HR* Heparin 5,000 UNIT/ML VIAL IVP PRN (10:16)
[2021-01-30] MEDS ORDERED: *HR* Heparin 5,000 UNIT/ML VIAL IVP ONE (10:16)
[2021-01-30] MEDS ORDERED: Dextrose Gel 15 GM/37.5 ML TUBE PO PRN ×2 (10:22)
[2021-01-30] MEDS ORDERED: *HR* Dextrose 50 % in Water (Syg) 50 ML SYRINGE IVP PRN (10:22)
[2021-01-30] MEDS ORDERED: D5% in Water 1,000 ML IVC PRN (10:22)
[2021-01-30] MEDS: Heparin 25,000UNIT/250ML 1/2NS 25,000 UNIT/250 ML IV.SOLN IVC SCH (10:24)
[2021-01-30 10:52] LABS: Heparin anti-factor XA UFH < 0.04 IU/mL (0.30-0.70); INR 1.1; Prothrombin Time 12.1 Seconds (9.4-12.1)
[2021-01-30 12:13] LABS: VBG HCO3 28 mEq/L (21-27); VBG PCO2 54 mmHg (41-51); VBG PH 7.33 pH Units (7.32-7.42); VBG PO2 95 mmHg (25-50)
[2021-01-30] MEDS: Insulin LISPRO 300 UNITS/3 ML VIAL SUBQ SCH ×2 (13:14→19:14)
[2021-01-30] MEDS ORDERED: *HR* Metoprolol 5 MG/5 ML VIAL IVP PRN (16:39)
[2021-01-30] MEDS: Ondansetron 4 MG/2 ML VIAL IVP PRN (17:21)
[2021-01-30 18:53] LABS: Acinetobacter baumannii by PCR Not Detected (Not Detect); Candida albicans by PCR Not Detected (Not Detect); Candida glabrata by PCR Not Detected (Not Detect); Candida krusei by PCR Not Detected (Not Detect); Candida parapsilosis by PCR Not Detected (Not Detect); Candida tropicalis by PCR Not Detected (Not Detect); Enterobacter cloacae Cmplx PCR Not Detected (Not Detect); Enterobacteriaceae by PCR Not Detected (Not Detect); Enterococcus by PCR Not Detected (Not Detect); Escherichia coli by PCR Not Detected (Not Detect); Klebsiella oxytoca by PCR Not Detected (Not Detect); Klebsiella pneumoniae by PCR Not Detected (Not Detect); Proteus by PCR Not Detected (Not Detect); Pseudomonas aeruginosa by PCR Not Detected (Not Detect); Serratia marcescens by PCR Not Detected (Not Detect); Staphylococcus aureus by PCR DETECTED (Not Detect); Streptococcus agalactiae(B)PCR Not Detected (Not Detect); Streptococcus by PCR Not Detected (Not Detect); Streptococcus pneumoniae PCR Not Detected (Not Detect); Streptococcus pyogenes (A) PCR Not Detected (Not Detect); mecA Methicillin-Resist Gene Not Detected (Not Detect)
[2021-01-30] MEDS: *HR* Heparin 5,000 UNIT/ML VIAL IVP PRN (19:52)
[2021-01-30] MEDS: Vancomycin 2,000 MG/520 ML IV.SOLN IVPB SCH (20:58)
[2021-01-31] MEDS: Piperacillin/Tazobactam 3.375 GM in 0.9 % Sodium Chloride Mini Bag 100 ML IVPB SCH ×2 (00:06→08:26)
[2021-01-31] MEDS: Insulin LISPRO 300 UNITS/3 ML VIAL SUBQ SCH ×5 (00:06→18:40)
[2021-01-31] MEDS ORDERED: Acetaminophen IV 500 MG/50 ML BAG IVPB ONE (00:30)
[2021-01-31 03:31] LABS: Basophils % 0.2 %; Hematocrit 35.1 % (37.5-50.1); Hemoglobin 10.9 g/dL (12.9-16.9); Immature Granulocytes % 0.5 % (0-4); Lymphocytes # 0.4 K/mcL (0.6-4.6); Lymphocytes % 3.2 %; Mean Corpuscular HGB Conc 31.1 g/dL (31.6-35.5); Mean Corpuscular Hemoglobin 27.8 pg (28.0-33.3); Mean Corpuscular Volume 89.5 fL (83.0-100.0); Mean Platelet Volume 10.2 fL (9.4-12.4); Monocytes # 0.6 K/mcL (0.0-1.3); Monocytes % 4.4 %; Neutrophils # 12.2 K/mcL (1.6-8.9); Platelet Count 139 K/mcL (140-400); Red Blood Count 3.92 M/mcL (4.19-5.50); Red Cell Distribution Width 14.5 % (11.5-14.5); Segmented Neutrophils % 91.7 %; White Blood Count 13.3 K/mcL (4.3-11.1)
[2021-01-31 03:39] LABS: INR 1.1; Prothrombin Time 12.6 Seconds (9.4-12.1)
[2021-01-31 03:51] LABS: BUN/Creatinine Ratio 22 (6-26); Blood Urea Nitrogen 19 mg/dL (8-23); Calcium 8.5 mg/dL (8.6-10.3); Carbon Dioxide 31 mEq/L (23-29); Chloride 102 mEq/L (98-107); Glucose 177 mg/dL (70-105); Magnesium 2.1 mg/dL (1.6-2.6); Osmolality,Calculated 295 (280-300); Potassium 4.3 mEq/L (3.5-5.1); Sodium 139 mEq/L (136-145); eGFR For African Americans > 60 (> 60); eGFR For Non-African Americans > 60 (> 60)
[2021-01-31] MEDS: Ondansetron 4 MG/2 ML VIAL IVP PRN ×2 (05:02→17:40)
[2021-01-31] MEDS: 0.9 % Sodium Chloride 1,000 ML IVC SCH ×3 (08:21→18:52)
[2021-01-31] MEDS: Heparin 25,000UNIT/250ML 1/2NS 25,000 UNIT/250 ML IV.SOLN IVC SCH (08:29)
[2021-01-31] MEDS: Vancomycin 2,000 MG/520 ML IV.SOLN IVPB SCH ×2 (08:34→20:20)
[2021-01-31] MEDS ORDERED: Perflutren Lipid Microsphere 1.3 ML in 0.9 % Sodium Chloride 8.7 ML IVP PRN (09:42)
[2021-01-31] MEDS: *HR* HYDROcodone/Acet 5/325 mg TABLET PO PRN ×2 (09:51→20:05)
[2021-01-31] MEDS: *HR* Heparin 5,000 UNIT/ML VIAL IVP PRN (10:56)
[2021-01-31] MEDS: Acetaminophen 325 MG TABLET PO PRN (14:07)
[2021-01-31] MEDS ORDERED: *HR* OxyCODONE Immed Rel 5 MG TABLET PO ONE (14:30)
[2021-01-31] MEDS ORDERED: Sennosides/Docusate Sodium TABLET PO PRN (20:38)
[2021-01-31] MEDS ORDERED: cefTRIAXone 1,000 MG in Water for inj. (sterile) 10 ML IVP SCH (21:00)
[2021-02-01] MEDS: 0.9 % Sodium Chloride 1,000 ML IVC SCH ×2 (00:27→15:31)
[2021-02-01 00:50] LABS: Basophils % 0.3 %; Eosinophils % 0.1 %; Hematocrit 37.6 % (37.5-50.1); Immature Granulocytes % 0.6 % (0-4); Lymphocytes # 0.9 K/mcL (0.6-4.6); Lymphocytes % 9.4 %; Mean Corpuscular HGB Conc 29.3 g/dL (31.6-35.5); Mean Corpuscular Hemoglobin 26.6 pg (28.0-33.3); Mean Platelet Volume 10.6 fL (9.4-12.4); Monocytes # 0.6 K/mcL (0.0-1.3); Monocytes % 6.7 %; Neutrophils # 7.9 K/mcL (1.6-8.9); Platelet Count 136 K/mcL (140-400); Red Blood Count 4.13 M/mcL (4.19-5.50); Red Cell Distribution Width 14.8 % (11.5-14.5); Segmented Neutrophils % 82.9 %; White Blood Count 9.6 K/mcL (4.3-11.1)
[2021-02-01 01:08] LABS: BUN/Creatinine Ratio 28 (6-26); Blood Urea Nitrogen 22 mg/dL (8-23); Calcium 8.7 mg/dL (8.6-10.3); Carbon Dioxide 29 mEq/L (23-29); Chloride 100 mEq/L (98-107); Glucose 165 mg/dL (70-105); Osmolality,Calculated 287 (280-300); Potassium 4.6 mEq/L (3.5-5.1); Sodium 135 mEq/L (136-145); eGFR For African Americans > 60 (> 60); eGFR For Non-African Americans > 60 (> 60)
[2021-02-01] MEDS: *HR* OxyCODONE/APAP 10/325 TABLET PO PRN ×3 (01:20→22:31)
[2021-02-01] MEDS: Heparin 25,000UNIT/250ML 1/2NS 25,000 UNIT/250 ML IV.SOLN IVC SCH ×2 (02:04→18:43)
[2021-02-01] MEDS: Ondansetron 4 MG/2 ML VIAL IVP PRN (07:46)
[2021-02-01] MEDS: Insulin LISPRO 300 UNITS/3 ML VIAL SUBQ SCH ×3 (07:46→17:33)
[2021-02-01] MEDS: Furosemide 20 MG TABLET PO SCH (07:47)
[2021-02-01] MEDS: Aspirin 81 MG TAB.CHEW PO SCH (07:47)
[2021-02-01] MEDS: polyethylene glycoL 3350 17 GM POWD.PACK PO SCH (07:48)
[2021-02-01] MEDS: Vancomycin 2,000 MG/520 ML IV.SOLN IVPB SCH ×2 (09:29→20:33)
[2021-02-01] MEDS: lisinopriL 5 MG TABLET PO SCH (14:31)
[2021-02-01] MEDS: Acetaminophen 325 MG TABLET PO PRN (15:33)
[2021-02-01] MEDS: *HR* HYDROcodone/Acet 5/325 mg TABLET PO PRN (17:33)
[2021-02-01] MEDS: Melatonin 3 MG TABLET PO PRN (19:58)
[2021-02-01] MEDS: Metoprolol XL (24 HR) Succ 25 MG TAB.ER.24H PO SCH (19:58)
[2021-02-02 00:44] LABS: Basophils % 0.3 %; Eosinophils % 0.3 %; Hematocrit 34.4 % (37.5-50.1); Hemoglobin 10.4 g/dL (12.9-16.9); Immature Granulocytes % 1.1 % (0-4); Lymphocytes # 1.1 K/mcL (0.6-4.6); Lymphocytes % 11.5 %; Mean Corpuscular HGB Conc 30.2 g/dL (31.6-35.5); Mean Corpuscular Hemoglobin 26.8 pg (28.0-33.3); Mean Corpuscular Volume 88.7 fL (83.0-100.0); Mean Platelet Volume 10.5 fL (9.4-12.4); Monocytes # 0.9 K/mcL (0.0-1.3); Neutrophils # 7.7 K/mcL (1.6-8.9); Platelet Count 154 K/mcL (140-400); Red Blood Count 3.88 M/mcL (4.19-5.50); Red Cell Distribution Width 14.6 % (11.5-14.5); Segmented Neutrophils % 77.8 %; White Blood Count 9.9 K/mcL (4.3-11.1)
[2021-02-02 01:02] LABS: BUN/Creatinine Ratio 27 (6-26); Blood Urea Nitrogen 19 mg/dL (8-23); Calcium 8.7 mg/dL (8.6-10.3); Carbon Dioxide 31 mEq/L (23-29); Chloride 99 mEq/L (98-107); Glucose 161 mg/dL (70-105); Osmolality,Calculated 288 (280-300); Potassium 4.2 mEq/L (3.5-5.1); Sodium 136 mEq/L (136-145); eGFR For African Americans > 60 (> 60); eGFR For Non-African Americans > 60 (> 60)
[2021-02-02] MEDS: Acetaminophen 325 MG TABLET PO PRN ×2 (03:15→14:43)
[2021-02-02] MEDS: *HR* Heparin 5,000 UNIT/ML VIAL SQ SCH ×2 (05:17→17:25)
[2021-02-02] MEDS: Aspirin 81 MG TAB.CHEW PO SCH (08:01)
[2021-02-02] MEDS: Metoprolol XL (24 HR) Succ 25 MG TAB.ER.24H PO SCH ×2 (08:01→20:06)
[2021-02-02] MEDS: Furosemide 20 MG TABLET PO SCH (08:01)
[2021-02-02] MEDS: polyethylene glycoL 3350 17 GM POWD.PACK PO SCH (08:01)
[2021-02-02] MEDS: lisinopriL 5 MG TABLET PO SCH (08:01)
[2021-02-02] MEDS: Insulin LISPRO 300 UNITS/3 ML VIAL SUBQ SCH ×3 (08:02→17:15)
[2021-02-02] MEDS: Vancomycin 2,000 MG/520 ML IV.SOLN IVPB SCH (08:07)
[2021-02-02] MEDS ORDERED: CeFAZolin 2,000 MG/120 ML BAG IVPB ONE (09:00)
[2021-02-02] MEDS ORDERED: Lidocaine Viscous Oral Soln 15 ML SOLUTION MM PRN (09:19)
[2021-02-02] MEDS ORDERED: 0.9 % Sodium Chloride 500 ML IVC ONE (09:20)
[2021-02-02] MEDS: *HR* Midazolam HCl 5 MG/5 ML VIAL IVP PRN ×2 (09:50→09:55)
[2021-02-02] MEDS: *HR* FentaNYL (PF) 100 MCG/2 ML VIAL IVP PRN ×2 (09:50→09:55)
[2021-02-02] MEDS: Spironolactone 12.5 MG TABLET PO SCH (14:43)
[2021-02-02] MEDS: Ondansetron 4 MG/2 ML VIAL IVP PRN (17:25)
[2021-02-02] MEDS: CeFAZolin 2,000 MG/120 ML BAG IVPB SCH (18:36)
[2021-02-02] MEDS: *HR* HYDROcodone/Acet 5/325 mg TABLET PO PRN (18:36)
[2021-02-02] MEDS: Melatonin 3 MG TABLET PO PRN (20:06)
[2021-02-03] MEDS: *HR* HYDROcodone/Acet 5/325 mg TABLET PO PRN (01:03)
[2021-02-03] MEDS: Acetaminophen 325 MG TABLET PO PRN (02:20)
[2021-02-03] MEDS: CeFAZolin 2,000 MG/120 ML BAG IVPB SCH (04:20)
[2021-02-03] MEDS: *HR* Heparin 5,000 UNIT/ML VIAL SQ SCH (05:38)
[2021-02-03 07:01] VITALS: O2SAT 97
[2021-02-03] MEDS: Insulin LISPRO 300 UNITS/3 ML VIAL SUBQ SCH (08:05)
[2021-02-03] MEDS: Aspirin 81 MG TAB.CHEW PO SCH (08:10)
[2021-02-03] MEDS: Metoprolol XL (24 HR) Succ 25 MG TAB.ER.24H PO SCH (08:10)
[2021-02-03] MEDS: Furosemide 20 MG TABLET PO SCH (08:10)
[2021-02-03] MEDS: *HR* OxyCODONE/APAP 10/325 TABLET PO PRN (08:10)
[2021-02-03] MEDS: lisinopriL 5 MG TABLET PO SCH (08:10)
[2021-02-03] MEDS: polyethylene glycoL 3350 17 GM POWD.PACK PO SCH (08:11)
[2021-02-03] MEDS: Spironolactone 12.5 MG TABLET PO SCH (08:22)
[2021-02-03 12:38] VITALS: BP 165/88; PULSE 75; TEMP 98.2
[2021-02-03 12:39] LABS: Basophils % 0.4 %; Eosinophils % 0.3 %; Hematocrit 33.5 % (37.5-50.1); Hemoglobin 10.5 g/dL (12.9-16.9); Immature Granulocytes % 1.2 % (0-4); Lymphocytes # 1.3 K/mcL (0.6-4.6); Lymphocytes % 17.1 %; Mean Corpuscular HGB Conc 31.3 g/dL (31.6-35.5); Mean Corpuscular Hemoglobin 27.6 pg (28.0-33.3); Mean Corpuscular Volume 87.9 fL (83.0-100.0); Mean Platelet Volume 10.9 fL (9.4-12.4); Monocytes # 0.8 K/mcL (0.0-1.3); Monocytes % 9.8 %; Neutrophils # 5.6 K/mcL (1.6-8.9); Platelet Count 188 K/mcL (140-400); Red Blood Count 3.81 M/mcL (4.19-5.50); Red Cell Distribution Width 13.9 % (11.5-14.5); Segmented Neutrophils % 71.2 %; White Blood Count 7.8 K/mcL (4.3-11.1)
[2021-02-03 13:38] LABS: BUN/Creatinine Ratio 21 (6-26); Blood Urea Nitrogen 15 mg/dL (8-23); Calcium 9.1 mg/dL (8.6-10.3); Carbon Dioxide 34 mEq/L (23-29); Chloride 97 mEq/L (98-107); Glucose 138 mg/dL (70-105); Osmolality,Calculated 283 (280-300); Potassium 4.3 mEq/L (3.5-5.1); Sodium 135 mEq/L (136-145); eGFR For African Americans > 60 (> 60); eGFR For Non-African Americans > 60 (> 60)
== END 2021-02-03 13:10 | disposition home or self-care (01) | DRG 871 ==
LOC: EMEROOARM 03:26 → 2NENU 03:26 → SUATTDRO 06:37 → 2NNU 14:38 → 3NENU 01-31 13:47
PROVIDERS: ADMIT Pharmacist; ATTEND Internal Medicine

== ENCOUNTER 2021-09-12 12:27 | Inpatient (IN) ==
[2021-09-12] MEDS ORDERED: *HR* LORazepam 2 MG/ML VIAL IVP ONE (12:38)
[2021-09-12] MEDS ORDERED: Albuterol 2.5 MG/3 ML NEBULIZER IH ONE (12:38)
[2021-09-12] MEDS ORDERED: methylPREDNISolone 125 MG/2 ML VIAL IVP ONE (12:38)
[2021-09-12] MEDS ORDERED: Ipratropium/Albuterol Neb 3 ML IH ONE (12:39)
[2021-09-12] MEDS ORDERED: Iopamidol - 370 500 ML MLS IVP ONE (12:47)
[2021-09-12] MEDS ORDERED: Piperacillin/Tazobactam 3.375 GM in 0.9 % Sodium Chloride Mini Bag 100 ML IVPB ONE (12:47)
[2021-09-12 12:51] LABS: ABG Base Excess -4 mEq/L (-2 to 3); ABG HCO3 24 mEq/L (21-27); ABG Oxygen Saturation 98 % (95-98); ABG PCO2 50 mmHg (35-45); ABG PH 7.28 pH Units (7.32-7.45); ABG PO2 113 mmHg (85-104); ABG TCO2 25 mEq/L (20-26)
[2021-09-12] MEDS ORDERED: Vancomycin 2,000 MG/520 ML IV.SOLN IVPB ONE (13:00)
[2021-09-12 13:28] LABS: Hematocrit 38.9 % (37.5-50.1); Hemoglobin 11.8 g/dL (12.9-16.9); Mean Corpuscular HGB Conc 30.3 g/dL (31.6-35.5); Mean Corpuscular Hemoglobin 27.1 pg (28.0-33.3); Mean Corpuscular Volume 89.4 fL (83.0-100.0); Mean Platelet Volume 9.8 fL (9.4-12.4); Platelet Count 159 K/mcL (140-400); Red Blood Count 4.35 M/mcL (4.19-5.50); Red Cell Distribution Width 16.4 % (11.5-14.5)
[2021-09-12 13:30] LABS: White Blood Count 16.4 K/mcL (4.3-11.1)
[2021-09-12 13:41] LABS: INR 1.4; Prothrombin Time 15.8 Seconds (9.4-12.1)
[2021-09-12 13:43] LABS: Activated Partial Thrombo Time 28.2 Seconds (26.0-36.0)
[2021-09-12 13:50] LABS: Alanine Aminotransferase 34 Units/L (7-52); Albumin 3.2 g/dL (3.5-5.7); Albumin/Globulin Ratio 0.9 (1.1-2.2); Alkaline Phosphatase 84 Units/L (34-104); Aspartate Amino Transferase 27 Units/L (13-39); BUN/Creatinine Ratio 27 (6-26); Bilirubin,Total 0.7 mg/dL (0.3-1.0); Blood Urea Nitrogen 36 mg/dL (8-23); Calcium 8.7 mg/dL (8.6-10.3); Carbon Dioxide 23 mEq/L (23-29); Chloride 101 mEq/L (98-107); Globulin 3.6 g/dL (2.4-3.5); Glucose 178 mg/dL (70-105); Osmolality,Calculated 299 (280-300); Potassium 4.2 mEq/L (3.5-5.1); Sodium 138 mEq/L (136-145); Total Protein 6.8 g/dL (6.4-8.9); eGFR For African Americans > 60 (> 60); eGFR For Non-African Americans 54 (> 60)
[2021-09-12 14:01] LABS: Lymphocytes # 0.7 K/mcL (0.6-4.6); Monocytes # 1.3 K/mcL (0.0-1.3); Neutrophils # 14.4 K/mcL (1.6-8.9); Platelet Estimate Normal (Normal); Troponin I 0.11 ng/mL (< 0.04)
[2021-09-12 14:37] LABS: Adenovirus Not Detected (Not Detect); Bordetella Pertussis Not Detected (Not Detect); Chlamydophila pneumoniae Not Detected (Not Detect); Coronavirus 229E Not Detected (Not Detect); Coronavirus HKU1 Not Detected (Not Detect); Coronavirus NL63 Not Detected (Not Detect); Coronavirus OC43 Not Detected (Not Detect); Human Metapneumovirus Not Detected (Not Detect); Human Rhinovirus/Enterovirus Not Detected (Not Detect); Influenza A Subtype 2009 H1 Not Detected (Not Detect); Influenza B Not Detected (Not Detect); Mycoplasma pneumoniae Not Detected (Not Detect); Parainfluenza Virus 1 Not Detected (Not Detect); Parainfluenza Virus 2 Not Detected (Not Detect); Parainfluenza Virus 3 Not Detected (Not Detect); Parainfluenza Virus 4 Not Detected (Not Detect); Respiratory Syncytial Virus Not Detected (Not Detect); SARS-CoV-2 Not Detected (Not Detect)
[2021-09-12] MEDS ORDERED: Naloxone 0.4 MG/ML INJ IVP PRN (15:53)
[2021-09-12] MEDS ORDERED: Ondansetron 4 MG/2 ML VIAL IVP PRN (15:53)
[2021-09-12] MEDS ORDERED: Acetaminophen 325 MG TABLET PO PRN (15:53)
[2021-09-12] MEDS ORDERED: Ringers Solution, Lactated 1,000 ML IVC ONE (15:53)
[2021-09-12] MEDS ORDERED: Dextrose Gel 15 GM/37.5 ML TUBE PO PRN ×2 (16:00)
[2021-09-12] MEDS ORDERED: D5% in Water 1,000 ML IVC PRN (16:00)
[2021-09-12] MEDS ORDERED: Vancomycin (wt based) 1,000 MG VIAL IVPB SCH (16:00)
[2021-09-12] MEDS ORDERED: *HR* Dextrose 50 % in Water (Syg) 50 ML SYRINGE IVP PRN (16:00)
[2021-09-12] MEDS ORDERED: *HR* Heparin 5,000 UNIT/ML VIAL IVP ONE (16:56)
[2021-09-12] MEDS ORDERED: *HR* Heparin 5,000 UNIT/ML VIAL IVP PRN (16:56)
[2021-09-12] MEDS: Levalbuterol Neb 1.25 MG/3 ML IH SCH ×2 (17:36→22:08)
[2021-09-12] MEDS: Heparin 25,000UNIT/250ML 1/2NS 25,000 UNIT/250 ML IV.SOLN IVC SCH (17:38)
[2021-09-12 18:11] LABS: Hemoglobin 11.4 g/dL (12.9-16.9); Mean Corpuscular Hemoglobin 27.2 pg (28.0-33.3); Mean Corpuscular Volume 90.7 fL (83.0-100.0); Mean Platelet Volume 10.1 fL (9.4-12.4); Platelet Count 151 K/mcL (140-400); Red Blood Count 4.19 M/mcL (4.19-5.50); Red Cell Distribution Width 16.6 % (11.5-14.5); White Blood Count 16.2 K/mcL (4.3-11.1)
[2021-09-12] MEDS: *HR* OxyCODONE Immed Rel 5 MG TABLET PO PRN (18:22)
[2021-09-12] MEDS: Insulin LISPRO 300 UNITS/3 ML VIAL SUBQ SCH (18:28)
[2021-09-12 19:17] LABS: Bacteria,Urine Few per hpf (None-Few); Bilirubin,Urine Negative (Negative); Blood,Urine Moderate (Negative); Clarity,Urine Clear (Clear); Color,Urine Light-Yellow (Yellow); Glucose,Urine (UA) >=1000 mg/dL (Normal); Ketones,Urine 20 mg/dL (Negative); Leukocyte Esterase,Urine Negative (Negative); Mucus,Urine Few per lpf (None-Few); Nitrite,Urine Negative (Negative); Protein,Urine 100 mg/dL (Neg-Trace); Specific Gravity,Urine > 1.030 (1.010-1.025); Squamous Epithelial Cell,Urine Few per hpf (None-Few); Urobilinogen,Urine Normal (Normal)
[2021-09-12 21:35] LABS: INR 1.5; Prothrombin Time 16.7 Seconds (9.4-12.1)
[2021-09-12] MEDS: Cefepime HCl 2,000 MG in 0.9 % Sodium Chloride 10 ML IVP SCH (23:39)
[2021-09-12] MEDS: *HR* Heparin 5,000 UNIT/ML VIAL IVP PRN (23:39)
[2021-09-13 02:33] LABS: Hematocrit 36.4 % (37.5-50.1); Hemoglobin 10.7 g/dL (12.9-16.9); Lymphocytes # 0.7 K/mcL (0.6-4.6); Mean Corpuscular HGB Conc 29.4 g/dL (31.6-35.5); Mean Corpuscular Volume 91.7 fL (83.0-100.0); Mean Platelet Volume 10.2 fL (9.4-12.4); Platelet Count 150 K/mcL (140-400); Red Blood Count 3.97 M/mcL (4.19-5.50); Red Cell Distribution Width 16.8 % (11.5-14.5); White Blood Count 16.3 K/mcL (4.3-11.1)
[2021-09-13 02:59] LABS: BUN/Creatinine Ratio 32 (6-26); Blood Urea Nitrogen 34 mg/dL (8-23); Calcium 8.5 mg/dL (8.6-10.3); Carbon Dioxide 23 mEq/L (23-29); Chloride 104 mEq/L (98-107); Glucose 148 mg/dL (70-105); Magnesium 2.6 mg/dL (1.6-2.6); Osmolality,Calculated 298 (280-300); Potassium 4.4 mEq/L (3.5-5.1); Sodium 139 mEq/L (136-145); Troponin I 0.07 ng/mL (< 0.04); eGFR For African Americans > 60 (> 60); eGFR For Non-African Americans > 60 (> 60)
[2021-09-13 03:11] LABS: Monocytes # 0.3 K/mcL (0.0-1.3); Neutrophils # 15.3 K/mcL (1.6-8.9); Platelet Estimate Normal (Normal)
[2021-09-13] MEDS: Insulin LISPRO 300 UNITS/3 ML VIAL SUBQ SCH ×5 (03:28→23:34)
[2021-09-13] MEDS: Levalbuterol Neb 1.25 MG/3 ML IH SCH ×4 (04:05→22:40)
[2021-09-13] MEDS: *HR* OxyCODONE Immed Rel 5 MG TABLET PO PRN ×4 (07:25→21:42)
[2021-09-13] MEDS: Cefepime HCl 2,000 MG in 0.9 % Sodium Chloride 10 ML IVP SCH ×3 (07:44→22:26)
[2021-09-13] MEDS: Vancomycin 1,750 MG/517.5 ML IV.SOLN IVPB SCH (11:47)
[2021-09-13] MEDS: Furosemide 40 MG/4 ML VIAL IVP SCH ×2 (11:47→21:43)
[2021-09-13] MEDS: Heparin 25,000UNIT/250ML 1/2NS 25,000 UNIT/250 ML IV.SOLN IVC SCH (13:00)
[2021-09-13 13:04] LABS: A.calcoaceticus-baumannii cplx Not Detected (Not Detect); Bacteroides fragilis by PCR Not Detected (Not Detect); Candida albicans by PCR Not Detected (Not Detect); Candida auris by PCR Not Detected (Not Detect); Candida glabrata by PCR Not Detected (Not Detect); Candida krusei by PCR Not Detected (Not Detect); Candida parapsilosis by PCR Not Detected (Not Detect); Candida tropicalis by PCR Not Detected (Not Detect); Crypto. neoformans/gattii PCR Not Detected (Not Detect); Enterobacter cloacae Cmplx PCR Not Detected (Not Detect); Enterobacterales by PCR Not Detected (Not Detect); Enterococcus faecalis by PCR Not Detected (Not Detect); Enterococcus faecium by PCR Not Detected (Not Detect); Escherichia coli by PCR Not Detected (Not Detect); Klebs. pneumoniae group by PCR Not Detected (Not Detect); Klebsiella aerogenes by PCR Not Detected (Not Detect); Klebsiella oxytoca by PCR Not Detected (Not Detect); Proteus by PCR Not Detected (Not Detect); Pseudomonas aeruginosa by PCR Not Detected (Not Detect); Salmonella species by PCR Not Detected (Not Detect); Serratia marcescens by PCR Not Detected (Not Detect); Staph epidermidis by PCR Not Detected (Not Detect); Staph lugdunensis by PCR Not Detected (Not Detect); Staphylococcus aureus by PCR DETECTED (Not Detect); Stenotrophomonas maltophilia Not Detected (Not Detect); Streptococcus agalactiae(B)PCR Not Detected (Not Detect); Streptococcus by PCR Not Detected (Not Detect); Streptococcus pneumoniae PCR Not Detected (Not Detect); Streptococcus pyogenes (A) PCR Not Detected (Not Detect); mecA/C & MREJ (MRSA) Gene Not Detected (Not Detect)
[2021-09-13] MEDS ORDERED: Perflutren Lipid Microsphere 1.3 ML in 0.9 % Sodium Chloride 8.7 ML IVP PRN (13:12)
[2021-09-13] MEDS ORDERED: Baclofen 10 MG TABLET PO PRN (13:57)
[2021-09-13] MEDS: Gabapentin 300 MG CAPSULE PO SCH ×2 (15:28→21:42)
[2021-09-13] MEDS: *HR* Heparin 5,000 UNIT/ML VIAL IVP PRN (15:29)
[2021-09-13] MEDS: Metoprolol XL (24 HR) Succ 50 MG TAB.ER.24H PO SCH (21:41)
[2021-09-13] MEDS: Aspirin 81 MG TAB.CHEW PO SCH (21:42)
[2021-09-13] MEDS: (Cyclosporine [Restasis] 1 EACH Droperette) OP SCH (22:20)
[2021-09-14] MEDS: Vancomycin 1,750 MG/517.5 ML IV.SOLN IVPB SCH ×2 (02:22→16:15)
[2021-09-14] MEDS: Levalbuterol Neb 1.25 MG/3 ML IH SCH ×4 (04:14→21:31)
[2021-09-14 05:26] LABS: BUN/Creatinine Ratio 28 (6-26); Blood Urea Nitrogen 40 mg/dL (8-23); Calcium 8.3 mg/dL (8.6-10.3); Carbon Dioxide 27 mEq/L (23-29); Chloride 102 mEq/L (98-107); Glucose 167 mg/dL (70-105); Osmolality,Calculated 296 (280-300); Potassium 5.8 mEq/L (3.5-5.1); Sodium 136 mEq/L (136-145); eGFR For African Americans > 60 (> 60); eGFR For Non-African Americans 50 (> 60)
[2021-09-14 05:56] LABS: Basophils # 0.1 K/mcL (0.0-0.2); Basophils % 0.4 %; Hematocrit 41.8 % (37.5-50.1); Hemoglobin 11.7 g/dL (12.9-16.9); Immature Granulocytes % 3.1 % (0-4); Lymphocytes # 1.4 K/mcL (0.6-4.6); Lymphocytes % 5.3 %; Mean Corpuscular Hemoglobin 27.4 pg (28.0-33.3); Mean Platelet Volume 10.2 fL (9.4-12.4); Monocytes % 7.7 %; Neutrophils # 21.5 K/mcL (1.6-8.9); Nucleated Red Blood Cells 0.3 /100 WBC (0); Platelet Count 179 K/mcL (140-400); Red Blood Count 4.27 M/mcL (4.19-5.50); Red Cell Distribution Width 17.7 % (11.5-14.5); Segmented Neutrophils % 83.5 %; White Blood Count 25.8 K/mcL (4.3-11.1)
[2021-09-14 05:57] LABS: Mean Corpuscular Volume 97.9 fL (83.0-100.0)
[2021-09-14 06:38] LABS: Anisocytosis 1+ (Not Present); Platelet Estimate Normal (Normal)
[2021-09-14] MEDS: Heparin 25,000UNIT/250ML 1/2NS 25,000 UNIT/250 ML IV.SOLN IVC SCH (07:24)
[2021-09-14 08:02] LABS: ABG Base Excess -7 mEq/L (-2 to 3); ABG HCO3 29 mEq/L (21-27); ABG Oxygen Saturation 99 % (95-98); ABG PCO2 120 mmHg (35-45); ABG PH 6.98 pH Units (7.32-7.45); ABG PO2 226 mmHg (85-104); ABG TCO2 32 mEq/L (20-26)
[2021-09-14] MEDS: Insulin LISPRO 300 UNITS/3 ML VIAL SUBQ SCH ×3 (08:36→16:16)
[2021-09-14 08:43] LABS: ABG Base Excess -6 mEq/L (-2 to 3); ABG HCO3 27 mEq/L (21-27); ABG Oxygen Saturation 83 % (95-98); ABG PCO2 91 mmHg (35-45); ABG PH 7.08 pH Units (7.32-7.45); ABG PO2 68 mmHg (85-104); ABG TCO2 30 mEq/L (20-26); Blood Gas Modality avaps; Blood Gas Pressure Support 40 cm H2O; Blood Gas VT 550 cc
[2021-09-14] MEDS: (Cyclosporine [Restasis] 1 EACH Droperette) OP SCH ×2 (08:49→19:44)
[2021-09-14] MEDS: Loratadine 10 MG TABLET PO SCH (08:49)
[2021-09-14] MEDS: Gabapentin 300 MG CAPSULE PO SCH ×3 (08:49→19:43)
[2021-09-14] MEDS: Metoprolol XL (24 HR) Succ 50 MG TAB.ER.24H PO SCH ×2 (08:49→19:47)
[2021-09-14] MEDS: Cefepime HCl 2,000 MG in 0.9 % Sodium Chloride 10 ML IVP SCH (09:13)
[2021-09-14] MEDS: Furosemide 40 MG/4 ML VIAL IVP SCH (10:02)
[2021-09-14 12:49] LABS: ABG Base Excess -5 mEq/L (-2 to 3); ABG HCO3 29 mEq/L (21-27); ABG Oxygen Saturation 86 % (95-98); ABG PCO2 107 mmHg (35-45); ABG PH 7.04 pH Units (7.32-7.45); ABG PO2 78 mmHg (85-104); ABG TCO2 32 mEq/L (20-26); Blood Gas Modality avaps; Blood Gas Pressure Support 40 cm H2O; Blood Gas VT 550 cc
[2021-09-14] MEDS ORDERED: *HR* Etomidate 20 MG/10 ML AMPUL IVP ONE ×2 (13:19→15:26)
[2021-09-14 14:48] LABS: VBG Ionized Calcium 1.05 mmol/L (1.15-1.35)
[2021-09-14 14:50] LABS: Basophils # 0.1 K/mcL (0.0-0.2); Basophils % 0.4 %; Hemoglobin 11.7 g/dL (12.9-16.9); Immature Granulocytes % 3.1 % (0-4); Lymphocytes # 1.1 K/mcL (0.6-4.6); Lymphocytes % 6.5 %; Mean Corpuscular HGB Conc 27.2 g/dL (31.6-35.5); Mean Corpuscular Hemoglobin 26.4 pg (28.0-33.3); Mean Corpuscular Volume 97.1 fL (83.0-100.0); Mean Platelet Volume 10.3 fL (9.4-12.4); Monocytes # 1.2 K/mcL (0.0-1.3); Monocytes % 7.5 %; Nucleated Red Blood Cells 0.3 /100 WBC (0); Platelet Count 162 K/mcL (140-400); Red Blood Count 4.43 M/mcL (4.19-5.50); Red Cell Distribution Width 17.7 % (11.5-14.5); Segmented Neutrophils % 82.5 %; White Blood Count 16.3 K/mcL (4.3-11.1)
[2021-09-14 14:51] LABS: Neutrophils # 13.5 K/mcL (1.6-8.9)
[2021-09-14] MEDS: FentaNYL (PF) 1,000 MCG/100 ML IV.SOLN IVC SCH ×2 (15:18→18:42)
[2021-09-14] MEDS: Dexmedetomidine HCl 400 MCG/100 ML MLS IVC SCH (15:19)
[2021-09-14] MEDS: Norepinephrine 4 MG/254 ML IV.SOLN IVC SCH (15:19)
[2021-09-14] MEDS ORDERED: *HR* Midazolam HCl 2 MG/2 ML VIAL IVP ONE (15:26)
[2021-09-14] MEDS ORDERED: *HR* Midazolam HCl 5 MG/5 ML VIAL IVP ONE ×3 (15:26→15:47)
[2021-09-14 15:31] LABS: Albumin 3.1 g/dL (3.5-5.7); Albumin/Globulin Ratio 0.8 (1.1-2.2); Bilirubin,Total 0.6 mg/dL (0.3-1.0); Calcium 8.6 mg/dL (8.6-10.3); Magnesium 3.4 mg/dL (1.6-2.6); Phosphorous 8.6 mg/dL (2.7-4.5); Potassium 7.5 mEq/L (3.5-5.1); Total Protein 7.1 g/dL (6.4-8.9); Troponin I 0.1 ng/mL (< 0.04)
[2021-09-14] MEDS ORDERED: Insulin Human Regular 10 UNIT in 0.9 % Sodium Chloride 10 ML IV ONE (15:31)
[2021-09-14] MEDS ORDERED: *HR* Dextrose 50 % in Water (Syg) 50 ML SYRINGE IVP ONE (15:32)
[2021-09-14] MEDS ORDERED: 0.9 % Sodium Chloride 1,000 ML ONE ×2 (15:45→15:50)
[2021-09-14] MEDS ORDERED: Artificial Tears SOLN 15 ML BOTTLE BOTH EYES PRN ×2 (15:45→18:36)
[2021-09-14] MEDS ORDERED: 0.9 % Sodium Chloride 1,000 ML IVC ONE (15:48)
[2021-09-14] MEDS: Calcium Gluconate 1gm/50mL 1 GM/50 ML BAG IVPB SCH ×2 (15:48→17:01)
[2021-09-14] MEDS: Pantoprazole 40 MG VIAL IVP SCH (16:03)
[2021-09-14] MEDS: Midazolam HCl 50 MG/50 ML IV.SOLN IVC SCH ×2 (16:03→20:15)
[2021-09-14] MEDS: *HR* Heparin 5,000 UNIT/ML VIAL SQ SCH ×2 (16:15→22:12)
[2021-09-14] MEDS: Artificial Tears SOLN 15 ML BOTTLE BOTH EYES SCH ×3 (16:15→19:44)
[2021-09-14 16:21] LABS: ABG Base Excess -3 mEq/L (-2 to 3); ABG HCO3 24 mEq/L (21-27); ABG Oxygen Saturation 99 % (95-98); ABG PCO2 49 mmHg (35-45); ABG PH 7.29 pH Units (7.32-7.45); ABG PO2 138 mmHg (85-104); ABG TCO2 25 mEq/L (20-26); Blood Gas Modality ASSIST CONTROL; Blood Gas VT 550 cc
[2021-09-14] MEDS: SODIUM ZIRCONIUM CYCLOSILICATE 5 GM POWD.PACK PO SCH (16:24)
[2021-09-14] MEDS: CeFAZolin 2,000 MG/120 ML BAG IVPB SCH (16:55)
[2021-09-14 18:46] LABS: Calcium 8.2 mg/dL (8.6-10.3); Potassium 4.8 mEq/L (3.5-5.1)
[2021-09-14] MEDS: 0.9 % Sodium Chloride 1,000 ML IVC SCH (19:42)
[2021-09-14] MEDS: Chlorhexidine Rinse 15 ML MOUTHWASH MM SCH (19:42)
[2021-09-14] MEDS: Aspirin 81 MG TAB.CHEW PO SCH (19:43)
[2021-09-14] MEDS ORDERED: Chlorhexidine Rinse 15 ML MOUTHWASH MM SCH (21:00)
[2021-09-15] MEDS: Artificial Tears SOLN 15 ML BOTTLE BOTH EYES SCH ×7 (00:51→23:30)
[2021-09-15] MEDS: Insulin LISPRO 300 UNITS/3 ML VIAL SUBQ SCH ×5 (00:52→23:30)
[2021-09-15] MEDS: CeFAZolin 2,000 MG/120 ML BAG IVPB SCH ×4 (00:54→23:34)
[2021-09-15] MEDS: FentaNYL (PF) 1,000 MCG/100 ML IV.SOLN IVC SCH ×4 (02:30→23:34)
[2021-09-15] MEDS: 0.9 % Sodium Chloride 1,000 ML IVC SCH ×3 (04:20→14:56)
[2021-09-15] MEDS: Levalbuterol Neb 1.25 MG/3 ML IH SCH ×4 (04:38→20:28)
[2021-09-15 04:43] LABS: VBG Ionized Calcium 0.98 mmol/L (1.15-1.35)
[2021-09-15 05:13] LABS: ABG Base Excess -6 mEq/L (-2 to 3); ABG HCO3 17 mEq/L (21-27); ABG Oxygen Saturation 96 % (95-98); ABG PCO2 25 mmHg (35-45); ABG PH 7.44 pH Units (7.32-7.45); ABG PO2 77 mmHg (85-104); ABG TCO2 18 mEq/L (20-26); Blood Gas Modality ASSIST CONTROL; Blood Gas VT 550 cc
[2021-09-15] MEDS: *HR* Heparin 5,000 UNIT/ML VIAL SQ SCH ×3 (05:18→20:37)
[2021-09-15] MEDS: Midazolam HCl 50 MG/50 ML IV.SOLN IVC SCH (05:38)
[2021-09-15 05:56] LABS: Calcium 7.9 mg/dL (8.6-10.3); Magnesium 2.8 mg/dL (1.6-2.6); Phosphorous 2.2 mg/dL (2.7-4.5); Potassium 3.6 mEq/L (3.5-5.1)
[2021-09-15 06:02] LABS: Basophils # 0.1 K/mcL (0.0-0.2); Basophils % 0.4 %; Eosinophils % 0.1 %; Hematocrit 32.4 % (37.5-50.1); Hemoglobin 9.9 g/dL (12.9-16.9); Lymphocytes # 1.7 K/mcL (0.6-4.6); Mean Corpuscular HGB Conc 30.6 g/dL (31.6-35.5); Mean Corpuscular Hemoglobin 27.5 pg (28.0-33.3); Monocytes % 7.9 %; Neutrophils # 8.7 K/mcL (1.6-8.9); Platelet Count 142 K/mcL (140-400); Red Cell Distribution Width 17.3 % (11.5-14.5); Segmented Neutrophils % 72.6 %
[2021-09-15] MEDS ORDERED: Furosemide 40 MG/4 ML VIAL IVP ONE (07:09)
[2021-09-15] MEDS: Pantoprazole 40 MG VIAL IVP SCH (07:37)
[2021-09-15] MEDS: Chlorhexidine Rinse 15 ML MOUTHWASH MM SCH ×2 (07:37→20:36)
[2021-09-15] MEDS: Gabapentin 300 MG CAPSULE PO SCH ×3 (07:37→20:36)
[2021-09-15] MEDS: SODIUM ZIRCONIUM CYCLOSILICATE 5 GM POWD.PACK PO SCH (07:38)
[2021-09-15] MEDS ORDERED: Calcium Gluconate 1gm/50mL 1 GM/50 ML BAG IVPB ONE (11:07)
[2021-09-15] MEDS: Dexmedetomidine HCl 400 MCG/100 ML MLS IVC SCH ×3 (11:35→16:17)
[2021-09-15] MEDS: Norepinephrine 4 MG/254 ML IV.SOLN IVC SCH (11:45)
[2021-09-15] MEDS: Loratadine 10 MG TABLET PO SCH (11:52)
[2021-09-15] MEDS: Metoprolol XL (24 HR) Succ 50 MG TAB.ER.24H PO SCH ×3 (11:52→20:39)
[2021-09-15 15:04] LABS: Calcium 7.8 mg/dL (8.6-10.3); Potassium 3.9 mEq/L (3.5-5.1)
[2021-09-15 17:50] LABS: Source of Body Fluid LEFT LOWER LOBE LUNG
[2021-09-15] MEDS: Aspirin 81 MG TAB.CHEW PO SCH (20:37)
[2021-09-15 22:46] LABS: Appearance of Body Fluid Hazy (Clear); Volume of Body Fluid 25 mL
[2021-09-16] MEDS: 0.9 % Sodium Chloride 1,000 ML IVC SCH ×2 (04:09→17:41)
[2021-09-16] MEDS: Levalbuterol Neb 1.25 MG/3 ML IH SCH ×4 (04:11→21:46)
[2021-09-16] MEDS: Artificial Tears SOLN 15 ML BOTTLE BOTH EYES SCH ×6 (04:12→23:15)
[2021-09-16 04:16] LABS: ABG Base Excess -5 mEq/L (-2 to 3); ABG HCO3 21 mEq/L (21-27); ABG Oxygen Saturation 96 % (95-98); ABG PCO2 38 mmHg (35-45); ABG PH 7.34 pH Units (7.32-7.45); ABG PO2 87 mmHg (85-104); ABG TCO2 22 mEq/L (20-26); Blood Gas VT 500 cc
[2021-09-16 04:37] LABS: Basophils % 0.4 %; Eosinophils # 0.1 K/mcL (0.0-0.6); Eosinophils % 0.8 %; Hemoglobin 9.1 g/dL (12.9-16.9); Immature Granulocytes % 5.3 % (0-4); Lymphocytes # 0.8 K/mcL (0.6-4.6); Lymphocytes % 8.9 %; Mean Corpuscular HGB Conc 30.3 g/dL (31.6-35.5); Mean Corpuscular Hemoglobin 26.8 pg (28.0-33.3); Mean Corpuscular Volume 88.2 fL (83.0-100.0); Mean Platelet Volume 10.4 fL (9.4-12.4); Monocytes # 0.7 K/mcL (0.0-1.3); Monocytes % 8.4 %; Neutrophils # 6.4 K/mcL (1.6-8.9); Platelet Count 138 K/mcL (140-400); Red Cell Distribution Width 17.4 % (11.5-14.5); Segmented Neutrophils % 76.2 %; White Blood Count 8.4 K/mcL (4.3-11.1)
[2021-09-16 04:46] LABS: Calcium 7.7 mg/dL (8.6-10.3); Potassium 3.7 mEq/L (3.5-5.1)
[2021-09-16] MEDS: Dexmedetomidine HCl 400 MCG/100 ML MLS IVC SCH ×3 (05:07→20:51)
[2021-09-16 05:32] LABS: Hypochromasia Present (Not Present); Platelet Estimate Slight Decrease (Normal)
[2021-09-16] MEDS: *HR* Heparin 5,000 UNIT/ML VIAL SQ SCH ×3 (05:35→20:47)
[2021-09-16] MEDS: Insulin LISPRO 300 UNITS/3 ML VIAL SUBQ SCH ×4 (05:36→23:15)
[2021-09-16] MEDS: Loratadine 10 MG TABLET PO SCH (07:28)
[2021-09-16] MEDS: Gabapentin 300 MG CAPSULE PO SCH ×3 (07:28→17:17)
[2021-09-16] MEDS: Pantoprazole 40 MG VIAL IVP SCH (07:28)
[2021-09-16] MEDS: SODIUM ZIRCONIUM CYCLOSILICATE 5 GM POWD.PACK PO SCH (07:29)
[2021-09-16] MEDS: Metoprolol XL (24 HR) Succ 50 MG TAB.ER.24H PO SCH (07:29)
[2021-09-16] MEDS: Chlorhexidine Rinse 15 ML MOUTHWASH MM SCH ×2 (07:29→20:48)
[2021-09-16] MEDS: CeFAZolin 2,000 MG/120 ML BAG IVPB SCH ×3 (07:49→23:19)
[2021-09-16] MEDS: FentaNYL (PF) 1,000 MCG/100 ML IV.SOLN IVC SCH (07:50)
[2021-09-16 11:41] LABS: Magnesium 2.8 mg/dL (1.6-2.6); Phosphorous 4.1 mg/dL (2.7-4.5)
[2021-09-16 16:28] LABS: Hematocrit 29.8 % (37.5-50.1); Hemoglobin 9.2 g/dL (12.9-16.9)
[2021-09-16] MEDS: Aspirin 81 MG TAB.CHEW PO SCH (20:48)
[2021-09-17] MEDS: Dexmedetomidine HCl 400 MCG/100 ML MLS IVC SCH ×7 (00:27→21:46)
[2021-09-17] MEDS: Levalbuterol Neb 1.25 MG/3 ML IH SCH ×4 (04:14→21:26)
[2021-09-17] MEDS: FentaNYL (PF) 1,000 MCG/100 ML IV.SOLN IVC SCH ×2 (04:37→16:10)
[2021-09-17] MEDS: Artificial Tears SOLN 15 ML BOTTLE BOTH EYES SCH ×6 (04:37→23:29)
[2021-09-17 04:54] LABS: ABG Base Excess -3 mEq/L (-2 to 3); ABG HCO3 20 mEq/L (21-27); ABG Oxygen Saturation 95 % (95-98); ABG PCO2 31 mmHg (35-45); ABG PH 7.43 pH Units (7.32-7.45); ABG PO2 71 mmHg (85-104); ABG TCO2 21 mEq/L (20-26); Blood Gas Modality AF; Blood Gas VT 500 cc
[2021-09-17 04:56] LABS: Basophils % 0.5 %; Eosinophils # 0.1 K/mcL (0.0-0.6); Eosinophils % 1.4 %; Hematocrit 30.5 % (37.5-50.1); Hemoglobin 9.4 g/dL (12.9-16.9); Immature Granulocytes % 6.8 % (0-4); Lymphocytes # 0.8 K/mcL (0.6-4.6); Lymphocytes % 9.1 %; Mean Corpuscular HGB Conc 30.8 g/dL (31.6-35.5); Mean Corpuscular Hemoglobin 26.9 pg (28.0-33.3); Mean Corpuscular Volume 87.4 fL (83.0-100.0); Mean Platelet Volume 10.6 fL (9.4-12.4); Monocytes # 0.7 K/mcL (0.0-1.3); Monocytes % 8.3 %; Neutrophils # 6.4 K/mcL (1.6-8.9); Platelet Count 153 K/mcL (140-400); Red Blood Count 3.49 M/mcL (4.19-5.50); Red Cell Distribution Width 17.3 % (11.5-14.5); Segmented Neutrophils % 73.9 %; White Blood Count 8.7 K/mcL (4.3-11.1)
[2021-09-17 05:15] LABS: Calcium 8.2 mg/dL (8.6-10.3); Potassium 3.8 mEq/L (3.5-5.1)
[2021-09-17] MEDS: Insulin LISPRO 300 UNITS/3 ML VIAL SUBQ SCH ×4 (05:38→23:30)
[2021-09-17] MEDS: *HR* Heparin 5,000 UNIT/ML VIAL SQ SCH ×3 (05:38→20:38)
[2021-09-17] MEDS: 0.9 % Sodium Chloride 1,000 ML IVC SCH (06:32)
[2021-09-17] MEDS ORDERED: Furosemide 20 MG/2 ML VIAL IVP ONE (07:01)
[2021-09-17] MEDS ORDERED: Furosemide 40 MG/4 ML VIAL ONE (07:04)
[2021-09-17] MEDS ORDERED: *HR* Metoprolol 5 MG/5 ML VIAL IVP PRN ×2 (07:26→07:28)
[2021-09-17] MEDS: Gabapentin 300 MG CAPSULE PO SCH ×3 (07:44→20:38)
[2021-09-17] MEDS: Loratadine 10 MG TABLET PO SCH (07:44)
[2021-09-17] MEDS: Chlorhexidine Rinse 15 ML MOUTHWASH MM SCH ×2 (07:44→19:43)
[2021-09-17] MEDS: Pantoprazole 40 MG VIAL IVP SCH (07:44)
[2021-09-17] MEDS: Nystatin POWDER 30 GM BOTTLE TP SCH ×2 (07:45→19:43)
[2021-09-17] MEDS: CeFAZolin 2,000 MG/120 ML BAG IVPB SCH ×3 (07:47→23:36)
[2021-09-17 15:00] LABS: Calcium 8.3 mg/dL (8.6-10.3); Magnesium 2.3 mg/dL (1.6-2.6); Potassium 3.8 mEq/L (3.5-5.1)
[2021-09-17] MEDS ORDERED: Furosemide 40 MG/4 ML VIAL IVP SCH (17:00)
[2021-09-17] MEDS: Midazolam HCl 50 MG/50 ML IV.SOLN IVC SCH (20:02)
[2021-09-17] MEDS: Docusate Oral Soln 100 MG/10 ML UDC GTUBE SCH (20:37)
[2021-09-17] MEDS: Aspirin 81 MG TAB.CHEW PO SCH (20:38)
[2021-09-17] MEDS: Furosemide 40 MG/4 ML VIAL IVP SCH (23:37)
[2021-09-18] MEDS: Dexmedetomidine HCl 400 MCG/100 ML MLS IVC SCH ×6 (01:07→23:21)
[2021-09-18] MEDS: Levalbuterol Neb 1.25 MG/3 ML IH SCH ×4 (03:19→20:24)
[2021-09-18 04:28] LABS: Basophils # 0.1 K/mcL (0.0-0.2); Basophils % 0.5 %; Eosinophils # 0.1 K/mcL (0.0-0.6); Eosinophils % 1.2 %; Hematocrit 31.1 % (37.5-50.1); Hemoglobin 9.7 g/dL (12.9-16.9); Lymphocytes # 1.7 K/mcL (0.6-4.6); Lymphocytes % 17.4 %; Mean Corpuscular HGB Conc 31.2 g/dL (31.6-35.5); Mean Corpuscular Hemoglobin 26.9 pg (28.0-33.3); Mean Corpuscular Volume 86.4 fL (83.0-100.0); Mean Platelet Volume 10.5 fL (9.4-12.4); Monocytes # 0.8 K/mcL (0.0-1.3); Monocytes % 7.8 %; Neutrophils # 6.4 K/mcL (1.6-8.9); Platelet Count 185 K/mcL (140-400); Segmented Neutrophils % 65.1 %; White Blood Count 9.8 K/mcL (4.3-11.1)
[2021-09-18 04:34] LABS: Platelet Estimate Normal (Normal)
[2021-09-18 04:45] LABS: ABG Base Excess 0 mEq/L (-2 to 3); ABG HCO3 23 mEq/L (21-27); ABG Oxygen Saturation 97 % (95-98); ABG PCO2 32 mmHg (35-45); ABG PH 7.46 pH Units (7.32-7.45); ABG PO2 81 mmHg (85-104); ABG TCO2 24 mEq/L (20-26); Blood Gas Modality AF; Blood Gas VT 500 cc
[2021-09-18 04:45] LABS: Calcium 8.7 mg/dL (8.6-10.3); Potassium 3.2 mEq/L (3.5-5.1)
[2021-09-18] MEDS: Artificial Tears SOLN 15 ML BOTTLE BOTH EYES SCH ×7 (04:51→23:19)
[2021-09-18] MEDS ORDERED: Potassium Chloride Elixir 20 MEQ/15 ML UDC GTUBE ONE (05:37)
[2021-09-18] MEDS: *HR* Heparin 5,000 UNIT/ML VIAL SQ SCH ×3 (05:59→21:24)
[2021-09-18] MEDS: Insulin LISPRO 300 UNITS/3 ML VIAL SUBQ SCH ×4 (06:00→21:32)
[2021-09-18] MEDS: Loratadine 10 MG TABLET PO SCH (08:32)
[2021-09-18] MEDS: Docusate Oral Soln 100 MG/10 ML UDC GTUBE SCH ×2 (08:32→20:20)
[2021-09-18] MEDS: Gabapentin 300 MG CAPSULE PO SCH ×3 (08:32→20:20)
[2021-09-18] MEDS: Chlorhexidine Rinse 15 ML MOUTHWASH MM SCH ×2 (08:32→21:32)
[2021-09-18] MEDS: Furosemide 40 MG/4 ML VIAL IVP SCH ×2 (08:34→18:14)
[2021-09-18] MEDS: Pantoprazole 40 MG VIAL IVP SCH (08:34)
[2021-09-18] MEDS: CeFAZolin 2,000 MG/120 ML BAG IVPB SCH ×3 (08:35→23:21)
[2021-09-18 11:32] LABS: ABG Base Excess 1 mEq/L (-2 to 3); ABG HCO3 28 mEq/L (21-27); ABG Oxygen Saturation 94 % (95-98); ABG PCO2 52 mmHg (35-45); ABG PH 7.33 pH Units (7.32-7.45); ABG PO2 77 mmHg (85-104); ABG TCO2 29 mEq/L (20-26); Blood Gas Modality CPAP/PS; Blood Gas Pressure Support 8 cm H2O
[2021-09-18] MEDS: Nystatin POWDER 30 GM BOTTLE TP SCH ×2 (12:59→21:36)
[2021-09-18] MEDS: Norepinephrine 4 MG/254 ML IV.SOLN IVC SCH ×4 (19:27→19:34)
[2021-09-18] MEDS: Midazolam HCl 50 MG/50 ML IV.SOLN IVC SCH (19:34)
[2021-09-18] MEDS: 0.9 % Sodium Chloride 1,000 ML IVC SCH (19:35)
[2021-09-18 20:11] LABS: Hematocrit 31.2 % (37.5-50.1); Hemoglobin 9.6 g/dL (12.9-16.9)
[2021-09-18] MEDS: Aspirin 81 MG TAB.CHEW PO SCH (20:20)
[2021-09-18 21:03] LABS: Calcium 8.7 mg/dL (8.6-10.3); Potassium 3.7 mEq/L (3.5-5.1)
[2021-09-18] MEDS ORDERED: Morphine Sulfate 2 MG/ML SYRINGE IVP ONE (21:45)
[2021-09-19 03:21] LABS: Basophils % 0.3 %; Eosinophils # 0.1 K/mcL (0.0-0.6); Eosinophils % 1.1 %; Hematocrit 29.7 % (37.5-50.1); Immature Granulocytes % 5.7 % (0-4); Lymphocytes # 1.3 K/mcL (0.6-4.6); Lymphocytes % 11.1 %; Mean Corpuscular HGB Conc 30.3 g/dL (31.6-35.5); Mean Corpuscular Hemoglobin 26.9 pg (28.0-33.3); Mean Corpuscular Volume 88.7 fL (83.0-100.0); Mean Platelet Volume 10.5 fL (9.4-12.4); Monocytes # 0.9 K/mcL (0.0-1.3); Monocytes % 7.6 %; Neutrophils # 8.5 K/mcL (1.6-8.9); Platelet Count 222 K/mcL (140-400); Red Blood Count 3.35 M/mcL (4.19-5.50); Red Cell Distribution Width 16.9 % (11.5-14.5); Segmented Neutrophils % 74.2 %; White Blood Count 11.5 K/mcL (4.3-11.1)
[2021-09-19 03:39] LABS: Calcium 8.4 mg/dL (8.6-10.3); Potassium 3.6 mEq/L (3.5-5.1)
[2021-09-19] MEDS: Levalbuterol Neb 1.25 MG/3 ML IH SCH ×5 (03:41→19:50)
[2021-09-19] MEDS ORDERED: Morphine Sulfate 2 MG/ML SYRINGE IVP ONE (04:04)
[2021-09-19] MEDS: Artificial Tears SOLN 15 ML BOTTLE BOTH EYES SCH ×2 (04:24→08:22)
[2021-09-19] MEDS: Dexmedetomidine HCl 400 MCG/100 ML MLS IVC SCH ×3 (04:37→10:04)
[2021-09-19] MEDS: *HR* Heparin 5,000 UNIT/ML VIAL SQ SCH (05:06)
[2021-09-19] MEDS: Insulin LISPRO 300 UNITS/3 ML VIAL SUBQ SCH ×3 (05:16→20:46)
[2021-09-19] MEDS: CeFAZolin 2,000 MG/120 ML BAG IVPB SCH ×3 (08:16→23:41)
[2021-09-19] MEDS: Furosemide 40 MG/4 ML VIAL IVP SCH (08:19)
[2021-09-19] MEDS: Loratadine 10 MG TABLET PO SCH (08:22)
[2021-09-19] MEDS: Docusate Oral Soln 100 MG/10 ML UDC GTUBE SCH ×2 (08:22→08:33)
[2021-09-19] MEDS: Gabapentin 300 MG CAPSULE PO SCH ×3 (08:22→20:45)
[2021-09-19] MEDS: Nystatin POWDER 30 GM BOTTLE TP SCH ×2 (08:23→20:46)
[2021-09-19] MEDS: Chlorhexidine Rinse 15 ML MOUTHWASH MM SCH ×2 (08:24→20:45)
[2021-09-19] MEDS: Norepinephrine 4 MG/254 ML IV.SOLN IVC SCH (08:34)
[2021-09-19] MEDS ORDERED: Naloxone 0.4 MG/ML INJ IVP PRN (10:21)
[2021-09-19] MEDS ORDERED: *HR* Metoprolol 5 MG/5 ML VIAL IVP PRN (10:21)
[2021-09-19] MEDS ORDERED: D5% in Water 1,000 ML IVC PRN ×2 (10:21→10:32)
[2021-09-19] MEDS ORDERED: *HR* Dextrose 50 % in Water (Syg) 50 ML SYRINGE IVP PRN ×2 (10:21→10:32)
[2021-09-19] MEDS ORDERED: Dextrose Gel 15 GM/37.5 ML TUBE PO PRN ×4 (10:21→10:32)
[2021-09-19] MEDS ORDERED: Insulin LISPRO 300 UNITS/3 ML VIAL SUBQ SCH ×2 (11:30→12:00)
[2021-09-19] MEDS ORDERED: *HR* Heparin 5,000 UNIT/ML VIAL SQ SCH (14:00)
[2021-09-19] MEDS: *HR* OxyCODONE Immed Rel 5 MG TABLET PO PRN ×2 (14:26→20:46)
[2021-09-19 15:13] LABS: Hematocrit 30.2 % (37.5-50.1); Hemoglobin 9.1 g/dL (12.9-16.9)
[2021-09-19] MEDS ORDERED: Furosemide 40 MG TABLET PO SCH ×2 (17:00)
[2021-09-19] MEDS: Ondansetron 4 MG/2 ML VIAL IVP PRN ×2 (17:54→21:34)
[2021-09-19] MEDS: Baclofen 10 MG TABLET PO PRN (18:00)
[2021-09-19] MEDS ORDERED: Pantoprazole 40 MG VIAL IVP SCH (19:01)
[2021-09-19] MEDS: Aspirin 81 MG TAB.CHEW PO SCH (20:45)
[2021-09-19] MEDS ORDERED: Docusate Oral Soln 100 MG/10 ML UDC GTUBE SCH (21:00)
[2021-09-19] MEDS ORDERED: *HR* HYDROmorphone (PF) 1 MG/ML SYRINGE IVP ONE (21:43)
[2021-09-19] MEDS ORDERED: 0.45 % Sodium Chloride 250 ML IVC SCH (23:30)
[2021-09-19 23:40] LABS: VBG Ionized Calcium 1.11 mmol/L (1.15-1.35)
[2021-09-19] MEDS ORDERED: 0.9 % Sodium Chloride 250 ML IV ONE (23:43)
[2021-09-19] MEDS: Pantoprazole 40 MG VIAL IVP SCH (23:57)
[2021-09-19 23:58] LABS: BUN/Creatinine Ratio 54 (6-26); Blood Urea Nitrogen 61 mg/dL (8-23); Calcium 8.4 mg/dL (8.6-10.3); Carbon Dioxide 29 mEq/L (23-29); Chloride 108 mEq/L (98-107); Glucose 151 mg/dL (70-105); Magnesium 1.6 mg/dL (1.6-2.6); Osmolality,Calculated 326 (280-300); Phosphorous 3.5 mg/dL (2.7-4.5); Sodium 148 mEq/L (136-145); eGFR For African Americans > 60 (> 60); eGFR For Non-African Americans > 60 (> 60)
[2021-09-20 00:04] LABS: Hematocrit 29.7 % (37.5-50.1)
[2021-09-20 03:57] LABS: Basophils % 0.3 %; Eosinophils # 0.1 K/mcL (0.0-0.6); Eosinophils % 0.5 %; Hematocrit 28.5 % (37.5-50.1); Hemoglobin 8.7 g/dL (12.9-16.9); Immature Granulocytes % 3.3 % (0-4); Lymphocytes # 1.5 K/mcL (0.6-4.6); Lymphocytes % 13.2 %; Mean Corpuscular HGB Conc 30.5 g/dL (31.6-35.5); Mean Corpuscular Hemoglobin 27.3 pg (28.0-33.3); Mean Corpuscular Volume 89.3 fL (83.0-100.0); Mean Platelet Volume 10.1 fL (9.4-12.4); Monocytes % 9.2 %; Neutrophils # 8.1 K/mcL (1.6-8.9); Platelet Count 274 K/mcL (140-400); Red Blood Count 3.19 M/mcL (4.19-5.50); Red Cell Distribution Width 16.5 % (11.5-14.5); Segmented Neutrophils % 73.5 %; White Blood Count 11.1 K/mcL (4.3-11.1)
[2021-09-20] MEDS: Levalbuterol Neb 1.25 MG/3 ML IH SCH ×4 (03:57→20:47)
[2021-09-20] MEDS: *HR* OxyCODONE Immed Rel 5 MG TABLET PO PRN ×3 (04:02→15:43)
[2021-09-20] MEDS: Baclofen 10 MG TABLET PO PRN (04:02)
[2021-09-20 04:16] LABS: BUN/Creatinine Ratio 51 (6-26); Blood Urea Nitrogen 58 mg/dL (8-23); Calcium 8.3 mg/dL (8.6-10.3); Carbon Dioxide 28 mEq/L (23-29); Chloride 111 mEq/L (98-107); Glucose 148 mg/dL (70-105); Osmolality,Calculated 327 (280-300); Sodium 149 mEq/L (136-145); eGFR For African Americans > 60 (> 60); eGFR For Non-African Americans > 60 (> 60)
[2021-09-20] MEDS ORDERED: D5% in Water 1,000 ML IVC SCH (05:00)
[2021-09-20] MEDS: Pantoprazole 40 MG VIAL IVP SCH ×2 (05:13→17:02)
[2021-09-20] MEDS: Acetaminophen 325 MG TABLET PO PRN (05:56)
[2021-09-20 07:37] LABS: ABG Base Excess 2 mEq/L (-2 to 3); ABG HCO3 25 mEq/L (21-27); ABG Oxygen Saturation 98 % (95-98); ABG PCO2 31 mmHg (35-45); ABG PH 7.52 pH Units (7.32-7.45); ABG PO2 93 mmHg (85-104); ABG TCO2 26 mEq/L (20-26)
[2021-09-20] MEDS: CeFAZolin 2,000 MG/120 ML BAG IVPB SCH ×2 (08:30→15:43)
[2021-09-20] MEDS: Potassium Chloride 20 MEQ in D5% in Water 1,000 ML IVC SCH ×2 (08:30→16:30)
[2021-09-20] MEDS: Chlorhexidine Rinse 15 ML MOUTHWASH MM SCH ×2 (08:31→21:28)
[2021-09-20] MEDS: Nystatin POWDER 30 GM BOTTLE TP SCH ×2 (08:31→21:29)
[2021-09-20] MEDS: Loratadine 10 MG TABLET PO SCH (08:31)
[2021-09-20] MEDS: Gabapentin 300 MG CAPSULE PO SCH ×3 (08:31→21:27)
[2021-09-20] MEDS: Insulin LISPRO 300 UNITS/3 ML VIAL SUBQ SCH ×4 (08:40→21:28)
[2021-09-20] MEDS ORDERED: Iopamidol - 370 500 ML MLS IVP ONE (13:39)
[2021-09-20 13:56] LABS: Hematocrit 26.4 % (37.5-50.1)
[2021-09-20] MEDS ORDERED: 0.9 % Sodium Chloride 250 ML ONE (14:57)
[2021-09-20] MEDS: Aspirin 81 MG TAB.CHEW PO SCH (21:28)
[2021-09-20 21:49] LABS: Hematocrit 25.8 % (37.5-50.1)
[2021-09-20] MEDS ORDERED: Pantoprazole 40 MG VIAL IVP SCH (23:48)
[2021-09-21] MEDS: CeFAZolin 2,000 MG/120 ML BAG IVPB SCH ×4 (01:28→23:45)
[2021-09-21] MEDS ORDERED: 0.9 % Sodium Chloride 250 ML ONE (01:44)
[2021-09-21 02:05] LABS: Hematocrit 22.3 % (37.5-50.1); Hemoglobin 6.8 g/dL (12.9-16.9)
[2021-09-21] MEDS: Levalbuterol Neb 1.25 MG/3 ML IH SCH ×4 (03:43→20:39)
[2021-09-21] MEDS: Potassium Chloride 20 MEQ in D5% in Water 1,000 ML IVC SCH ×2 (05:29→18:20)
[2021-09-21] MEDS: Pantoprazole 40 MG VIAL IVP SCH ×2 (05:29→17:20)
[2021-09-21] MEDS: *HR* OxyCODONE Immed Rel 5 MG TABLET PO PRN (05:57)
[2021-09-21 06:07] LABS: Hematocrit 23.1 % (37.5-50.1); Hemoglobin 7.1 g/dL (12.9-16.9); Mean Corpuscular HGB Conc 30.7 g/dL (31.6-35.5); Mean Corpuscular Hemoglobin 27.8 pg (28.0-33.3); Mean Corpuscular Volume 90.6 fL (83.0-100.0); Mean Platelet Volume 10.2 fL (9.4-12.4); Platelet Count 295 K/mcL (140-400); Red Blood Count 2.55 M/mcL (4.19-5.50); Red Cell Distribution Width 15.9 % (11.5-14.5); White Blood Count 13.9 K/mcL (4.3-11.1)
[2021-09-21 06:27] LABS: Calcium 7.2 mg/dL (8.6-10.3); Magnesium 1.8 mg/dL (1.6-2.6); Potassium 3.6 mEq/L (3.5-5.1)
[2021-09-21] MEDS: Gabapentin 300 MG CAPSULE PO SCH ×3 (09:17→19:53)
[2021-09-21] MEDS: Loratadine 10 MG TABLET PO SCH (09:17)
[2021-09-21] MEDS: Insulin LISPRO 300 UNITS/3 ML VIAL SUBQ SCH ×4 (09:18→21:09)
[2021-09-21] MEDS: Nystatin POWDER 30 GM BOTTLE TP SCH ×2 (09:18→19:53)
[2021-09-21 10:40] LABS: ABG Base Excess -2 mEq/L (-2 to 3); ABG HCO3 25 mEq/L (21-27); ABG Oxygen Saturation 96 % (95-98); ABG PCO2 51 mmHg (35-45); ABG PO2 88 mmHg (85-104); ABG TCO2 26 mEq/L (20-26)
[2021-09-21 11:54] LABS: Hematocrit 19.8 % (37.5-50.1); Hemoglobin 6.1 g/dL (12.9-16.9)
[2021-09-21] MEDS ORDERED: 0.9 % Sodium Chloride 250 ML IVC SCH (12:15)
[2021-09-21] MEDS: Acetaminophen 325 MG TABLET PO PRN (12:22)
[2021-09-21] MEDS ORDERED: Lidocaine -MPF 2% 5 ML VIAL ONE ×2 (13:56→14:27)
[2021-09-21] MEDS ORDERED: *HR* Succinylcholine 200 MG/10 ML VIAL IVP ONE (13:56)
[2021-09-21] MEDS ORDERED: *HR* Propofol 200 MG/20 ML VIAL IVP ONE (13:56)
[2021-09-21] MEDS ORDERED: *HR* Vasopressin 20 UNIT/ML VIAL ONE (14:00)
[2021-09-21 14:45] LABS: INR 3.2; Prothrombin Time 35.7 Seconds (9.4-12.1)
[2021-09-21] MEDS ORDERED: EPHEDrine 50 MG/ML VIAL ONE (15:05)
[2021-09-21] MEDS ORDERED: *HR* Midazolam HCl 2 MG/2 ML VIAL ONE (15:18)
[2021-09-21] MEDS ORDERED: Artificial Tears SOLN 15 ML BOTTLE BOTH EYES PRN (15:57)
[2021-09-21 16:10] LABS: ABG Base Excess -3 mEq/L (-2 to 3); ABG HCO3 23 mEq/L (21-27); ABG Oxygen Saturation 96 % (95-98); ABG PCO2 47 mmHg (35-45); ABG PO2 94 mmHg (85-104); ABG TCO2 24 mEq/L (20-26); Blood Gas Modality ASSIST CONTROL; Blood Gas VT 500 cc
[2021-09-21] MEDS: FentaNYL (PF) 1,000 MCG/100 ML IV.SOLN IVC SCH ×2 (16:14→22:35)
[2021-09-21] MEDS: Norepinephrine 4 MG/254 ML IV.SOLN IVC SCH (16:14)
[2021-09-21] MEDS: Artificial Tears SOLN 15 ML BOTTLE BOTH EYES SCH ×3 (16:25→23:44)
[2021-09-21 16:53] LABS: VBG HCO3 23 mEq/L (21-27); VBG PCO2 42 mmHg (41-51); VBG PH 7.34 pH Units (7.32-7.42); VBG PO2 166 mmHg (25-50)
[2021-09-21 16:53] LABS: Hematocrit 20.1 % (37.5-50.1); Hemoglobin 6.4 g/dL (12.9-16.9); Mean Corpuscular HGB Conc 31.8 g/dL (31.6-35.5); Mean Platelet Volume 10.2 fL (9.4-12.4); Platelet Count 304 K/mcL (140-400); Red Blood Count 2.21 M/mcL (4.19-5.50); Red Cell Distribution Width 15.6 % (11.5-14.5)
[2021-09-21 17:01] LABS: INR 3.2; Prothrombin Time 35.5 Seconds (9.4-12.1)
[2021-09-21 17:47] LABS: Albumin 2.1 g/dL (3.5-5.7); Albumin/Globulin Ratio 0.9 (1.1-2.2); Bilirubin,Direct 0.1 mg/dL (0.0-0.2); Bilirubin,Indirect 0.4 mg/dL (0.0-1.0); Bilirubin,Total 0.5 mg/dL (0.3-1.0); Calcium 6.8 mg/dL (8.6-10.3); Globulin 2.4 g/dL (2.4-3.5); Total Protein 4.5 g/dL (6.4-8.9)
[2021-09-21] MEDS: Chlorhexidine Rinse 15 ML MOUTHWASH MM SCH (19:59)
[2021-09-21] MEDS ORDERED: SODIUM CHLORIDE/NAHCO3/KCL/PEG 4,000 ML SOLN.RECON PO ONE (20:07)
[2021-09-21] MEDS ORDERED: Calcium Gluconate 1gm/50mL 1 GM/50 ML BAG IVPB PRN (22:47)
[2021-09-21] MEDS ORDERED: Calcium Gluconate 1gm/50mL 1 GM/50 ML BAG IVPB ONE (22:48)
[2021-09-22 02:20] LABS: Hematocrit 20.1 % (37.5-50.1); Hemoglobin 6.5 g/dL (12.9-16.9)
[2021-09-22] MEDS: Norepinephrine 4 MG/254 ML IV.SOLN IVC SCH ×3 (02:51→21:20)
[2021-09-22] MEDS: Levalbuterol Neb 1.25 MG/3 ML IH SCH ×2 (03:23→07:29)
[2021-09-22] MEDS: Artificial Tears SOLN 15 ML BOTTLE BOTH EYES SCH ×6 (03:28→23:34)
[2021-09-22 03:34] LABS: VBG Ionized Calcium 1.11 mmol/L (1.15-1.35)
[2021-09-22 03:51] LABS: Basophils % 0.3 %; Eosinophils # 0.2 K/mcL (0.0-0.6); Eosinophils % 1.5 %; Hematocrit 20.3 % (37.5-50.1); Hemoglobin 6.4 g/dL (12.9-16.9); Immature Granulocytes % 2.4 % (0-4); Lymphocytes # 2.3 K/mcL (0.6-4.6); Lymphocytes % 16.3 %; Mean Corpuscular HGB Conc 31.5 g/dL (31.6-35.5); Mean Corpuscular Hemoglobin 28.4 pg (28.0-33.3); Mean Corpuscular Volume 90.2 fL (83.0-100.0); Monocytes # 1.1 K/mcL (0.0-1.3); Monocytes % 7.8 %; Neutrophils # 10.2 K/mcL (1.6-8.9); Platelet Count 310 K/mcL (140-400); Red Blood Count 2.25 M/mcL (4.19-5.50); Red Cell Distribution Width 15.6 % (11.5-14.5); Segmented Neutrophils % 71.7 %; White Blood Count 14.2 K/mcL (4.3-11.1)
[2021-09-22 03:58] LABS: Creatinine,Urine 8 mg/dL; Sodium, Urine < 10.0 mEq/L
[2021-09-22 04:04] LABS: INR 1.4; Prothrombin Time 15.3 Seconds (9.4-12.1)
[2021-09-22 04:08] LABS: BUN/Creatinine Ratio 40 (6-26); Blood Urea Nitrogen 51 mg/dL (8-23); Calcium 7.1 mg/dL (8.6-10.3); Carbon Dioxide 26 mEq/L (23-29); Chloride 104 mEq/L (98-107); Glucose 210 mg/dL (70-105); Magnesium 1.6 mg/dL (1.6-2.6); Osmolality,Calculated 302 (280-300); Phosphorous 4.7 mg/dL (2.7-4.5); Potassium 4.1 mEq/L (3.5-5.1); Sodium 136 mEq/L (136-145); eGFR For African Americans > 60 (> 60); eGFR For Non-African Americans 57 (> 60)
[2021-09-22 04:09] LABS: Bacteria,Urine Few per hpf (None-Few); Bilirubin,Urine Negative (Negative); Blood,Urine Small (Negative); Budding Yeast,Urine Many per hpf (None Seen); Clarity,Urine Clear (Clear); Color,Urine Light-Yellow (Yellow); Glucose,Urine (UA) 70 mg/dL (Normal); Ketones,Urine Negative (Negative); Leukocyte Esterase,Urine Moderate (Negative); Mucus,Urine Few per lpf (None-Few); Nitrite,Urine Negative (Negative); Protein,Urine 50 mg/dL (Neg-Trace); Specific Gravity,Urine 1.019 (1.010-1.025); Squamous Epithelial Cell,Urine Few per hpf (None-Few); Urobilinogen,Urine Normal (Normal); WBC,Urine 30-50 per hpf (0-3)
[2021-09-22] MEDS: Potassium Chloride 20 MEQ in D5% in Water 1,000 ML IVC SCH (04:17)
[2021-09-22] MEDS: FentaNYL (PF) 1,000 MCG/100 ML IV.SOLN IVC SCH ×3 (04:17→17:40)
[2021-09-22 04:37] LABS: ABG Base Excess -1 mEq/L (-2 to 3); ABG HCO3 26 mEq/L (21-27); ABG Oxygen Saturation 98 % (95-98); ABG PCO2 51 mmHg (35-45); ABG PH 7.31 pH Units (7.32-7.45); ABG PO2 110 mmHg (85-104); ABG TCO2 27 mEq/L (20-26); Blood Gas Modality ASSIST CONTROL; Blood Gas VT 500 cc
[2021-09-22] MEDS: Pantoprazole 40 MG VIAL IVP SCH ×2 (05:23→18:45)
[2021-09-22] MEDS: Insulin LISPRO 300 UNITS/3 ML VIAL SUBQ SCH ×4 (07:26→19:38)
[2021-09-22] MEDS: CeFAZolin 2,000 MG/120 ML BAG IVPB SCH ×3 (07:27→23:37)
[2021-09-22] MEDS: Chlorhexidine Rinse 15 ML MOUTHWASH MM SCH ×2 (08:17→19:41)
[2021-09-22] MEDS: Loratadine 10 MG TABLET PO SCH (08:17)
[2021-09-22] MEDS: Nystatin POWDER 30 GM BOTTLE TP SCH ×2 (08:18→19:41)
[2021-09-22] MEDS: Gabapentin 300 MG CAPSULE PO SCH ×3 (08:18→19:41)
[2021-09-22] MEDS ORDERED: Ipratropium/Albuterol Neb 3 ML IH PRN (11:09)
[2021-09-22] MEDS ORDERED: Simethicone 40 MG/0.6 ML MLS IR ONE (14:22)
[2021-09-22] MEDS ORDERED: SODIUM CHLORIDE/NAHCO3/KCL/PEG 4,000 ML SOLN.RECON PO ONE (17:00)
[2021-09-22 20:20] LABS: Hematocrit 23.5 % (37.5-50.1); Hemoglobin 7.5 g/dL (12.9-16.9)
[2021-09-23] MEDS: FentaNYL (PF) 1,000 MCG/100 ML IV.SOLN IVC SCH ×5 (00:10→21:58)
[2021-09-23] MEDS: Artificial Tears SOLN 15 ML BOTTLE BOTH EYES SCH ×6 (03:17→23:14)
[2021-09-23 04:10] LABS: Basophils % 0.1 %; Eosinophils # 0.2 K/mcL (0.0-0.6); Eosinophils % 1.8 %; Hematocrit 22.3 % (37.5-50.1); Immature Granulocytes % 1.9 % (0-4); Lymphocytes # 1.3 K/mcL (0.6-4.6); Lymphocytes % 14.6 %; Mean Corpuscular HGB Conc 31.4 g/dL (31.6-35.5); Mean Corpuscular Hemoglobin 28.9 pg (28.0-33.3); Mean Corpuscular Volume 92.1 fL (83.0-100.0); Mean Platelet Volume 9.6 fL (9.4-12.4); Monocytes # 0.7 K/mcL (0.0-1.3); Monocytes % 7.8 %; Neutrophils # 6.3 K/mcL (1.6-8.9); Nucleated Red Blood Cells 0.2 /100 WBC (0); Platelet Count 225 K/mcL (140-400); Red Blood Count 2.42 M/mcL (4.19-5.50); Red Cell Distribution Width 15.8 % (11.5-14.5); Segmented Neutrophils % 73.8 %; White Blood Count 8.5 K/mcL (4.3-11.1)
[2021-09-23 04:10] LABS: VBG Ionized Calcium 1.13 mmol/L (1.15-1.35)
[2021-09-23 04:19] LABS: INR 1.2; Prothrombin Time 13.2 Seconds (9.4-12.1)
[2021-09-23 04:29] LABS: ABG Base Excess -1 mEq/L (-2 to 3); ABG HCO3 25 mEq/L (21-27); ABG Oxygen Saturation 95 % (95-98); ABG PCO2 43 mmHg (35-45); ABG PH 7.37 pH Units (7.32-7.45); ABG PO2 79 mmHg (85-104); ABG TCO2 26 mEq/L (20-26); Blood Gas VT 500 cc
[2021-09-23 04:29] LABS: BUN/Creatinine Ratio 33 (6-26); Blood Urea Nitrogen 26 mg/dL (8-23); Calcium 7.3 mg/dL (8.6-10.3); Carbon Dioxide 25 mEq/L (23-29); Chloride 107 mEq/L (98-107); Glucose 145 mg/dL (70-105); Magnesium 1.9 mg/dL (1.6-2.6); Osmolality,Calculated 293 (280-300); Phosphorous 2.8 mg/dL (2.7-4.5); Potassium 4.1 mEq/L (3.5-5.1); Sodium 138 mEq/L (136-145); eGFR For African Americans > 60 (> 60); eGFR For Non-African Americans > 60 (> 60)
[2021-09-23] MEDS: Norepinephrine 4 MG/254 ML IV.SOLN IVC SCH ×2 (05:15→18:43)
[2021-09-23] MEDS: Pantoprazole 40 MG VIAL IVP SCH ×2 (05:17→16:42)
[2021-09-23] MEDS ORDERED: Furosemide 20 MG/2 ML VIAL IVP ONE (07:10)
[2021-09-23] MEDS: Insulin LISPRO 300 UNITS/3 ML VIAL SUBQ SCH ×4 (07:49→20:38)
[2021-09-23] MEDS: CeFAZolin 2,000 MG/120 ML BAG IVPB SCH ×3 (08:12→23:16)
[2021-09-23] MEDS: Chlorhexidine Rinse 15 ML MOUTHWASH MM SCH ×2 (08:14→20:54)
[2021-09-23] MEDS: Loratadine 10 MG TABLET PO SCH (08:14)
[2021-09-23] MEDS: Gabapentin 300 MG CAPSULE PO SCH ×3 (08:15→20:54)
[2021-09-23 08:17] LABS: Hematocrit 20.8 % (37.5-50.1); Hemoglobin 6.6 g/dL (12.9-16.9)
[2021-09-23] MEDS ORDERED: 0.9 % Sodium Chloride 250 ML ONE (08:59)
[2021-09-23] MEDS: Nystatin POWDER 30 GM BOTTLE TP SCH ×2 (12:21→20:55)
[2021-09-23 14:13] LABS: Hematocrit 23.6 % (37.5-50.1); Hemoglobin 7.5 g/dL (12.9-16.9)
[2021-09-23] MEDS ORDERED: Albumin 25% 25gram/100mL 25 GM/100 ML IV.SOLN IVPB ONE (16:43)
[2021-09-23] MEDS: Furosemide 40 MG/4 ML VIAL IVP SCH (18:01)
[2021-09-23] MEDS ORDERED: 0.9 % Sodium Chloride 500 ML ONE (20:09)
[2021-09-23 20:56] LABS: Hematocrit 24.5 % (37.5-50.1); Hemoglobin 7.7 g/dL (12.9-16.9)
[2021-09-24] MEDS: FentaNYL (PF) 1,000 MCG/100 ML IV.SOLN IVC SCH (01:53)
[2021-09-24 02:02] LABS: Hematocrit 22.4 % (37.5-50.1); Hemoglobin 7.1 g/dL (12.9-16.9)
[2021-09-24] MEDS: Artificial Tears SOLN 15 ML BOTTLE BOTH EYES SCH ×2 (03:07→08:04)
[2021-09-24 03:21] LABS: VBG Ionized Calcium 1.15 mmol/L (1.15-1.35)
[2021-09-24 03:22] LABS: Basophils % 0.3 %; Eosinophils # 0.1 K/mcL (0.0-0.6); Eosinophils % 1.6 %; Hematocrit 22.6 % (37.5-50.1); Hemoglobin 7.1 g/dL (12.9-16.9); Immature Granulocytes % 1.5 % (0-4); Lymphocytes # 1.1 K/mcL (0.6-4.6); Lymphocytes % 16.4 %; Mean Corpuscular HGB Conc 31.4 g/dL (31.6-35.5); Mean Corpuscular Hemoglobin 28.6 pg (28.0-33.3); Mean Corpuscular Volume 91.1 fL (83.0-100.0); Mean Platelet Volume 9.4 fL (9.4-12.4); Monocytes # 0.5 K/mcL (0.0-1.3); Monocytes % 7.8 %; Nucleated Red Blood Cells 0.3 /100 WBC (0); Platelet Count 246 K/mcL (140-400); Red Blood Count 2.48 M/mcL (4.19-5.50); Red Cell Distribution Width 15.3 % (11.5-14.5); Segmented Neutrophils % 72.4 %; White Blood Count 6.9 K/mcL (4.3-11.1)
[2021-09-24 03:35] LABS: INR 1.2; Prothrombin Time 13.3 Seconds (9.4-12.1)
[2021-09-24 03:37] LABS: Activated Partial Thrombo Time 25.1 Seconds (26.0-36.0)
[2021-09-24 03:45] LABS: Alanine Aminotransferase 3 Units/L (7-52); Albumin 2.5 g/dL (3.5-5.7); Alkaline Phosphatase 37 Units/L (34-104); Aspartate Amino Transferase 14 Units/L (13-39); BUN/Creatinine Ratio 22 (6-26); Bilirubin,Direct 0.2 mg/dL (0.0-0.2); Bilirubin,Indirect 0.3 mg/dL (0.0-1.0); Bilirubin,Total 0.5 mg/dL (0.3-1.0); Blood Urea Nitrogen 16 mg/dL (8-23); Calcium 7.6 mg/dL (8.6-10.3); Carbon Dioxide 29 mEq/L (23-29); Chloride 105 mEq/L (98-107); Globulin 2.4 g/dL (2.4-3.5); Glucose 120 mg/dL (70-105); Magnesium 1.8 mg/dL (1.6-2.6); Osmolality,Calculated 294 (280-300); Phosphorous 2.8 mg/dL (2.7-4.5); Potassium 3.3 mEq/L (3.5-5.1); Sodium 141 mEq/L (136-145); Total Protein 4.9 g/dL (6.4-8.9); eGFR For African Americans > 60 (> 60); eGFR For Non-African Americans > 60 (> 60)
[2021-09-24 03:46] LABS: ABG Base Excess 2 mEq/L (-2 to 3); ABG HCO3 27 mEq/L (21-27); ABG Oxygen Saturation 99 % (95-98); ABG PCO2 47 mmHg (35-45); ABG PH 7.37 pH Units (7.32-7.45); ABG PO2 122 mmHg (85-104); ABG TCO2 29 mEq/L (20-26); Blood Gas Modality ASSIST CONTROL; Blood Gas VT 500 cc
[2021-09-24] MEDS: Norepinephrine 4 MG/254 ML IV.SOLN IVC SCH ×2 (04:30→09:46)
[2021-09-24] MEDS: Potassium Chloride 40 MEQ/200 ML BAG IVPB PRN (04:57)
[2021-09-24] MEDS: Pantoprazole 40 MG VIAL IVP SCH (04:58)
[2021-09-24] MEDS: Loratadine 10 MG TABLET PO SCH (08:02)
[2021-09-24] MEDS: Gabapentin 300 MG CAPSULE PO SCH ×3 (08:02→20:53)
[2021-09-24] MEDS: Furosemide 40 MG/4 ML VIAL IVP SCH (08:02)
[2021-09-24] MEDS: Chlorhexidine Rinse 15 ML MOUTHWASH MM SCH (08:02)
[2021-09-24] MEDS: CeFAZolin 2,000 MG/120 ML BAG IVPB SCH ×3 (08:03→23:58)
[2021-09-24] MEDS: Nystatin POWDER 30 GM BOTTLE TP SCH ×2 (08:17→20:54)
[2021-09-24] MEDS: Insulin LISPRO 300 UNITS/3 ML VIAL SUBQ SCH ×4 (08:18→20:53)
[2021-09-24 11:36] LABS: Hematocrit 26.1 % (37.5-50.1); Hemoglobin 8.3 g/dL (12.9-16.9)
[2021-09-24 12:23] LABS: ABG Base Excess 4 mEq/L (-2 to 3); ABG HCO3 30 mEq/L (21-27); ABG Oxygen Saturation 94 % (95-98); ABG PCO2 49 mmHg (35-45); ABG PH 7.38 pH Units (7.32-7.45); ABG PO2 71 mmHg (85-104); ABG TCO2 31 mEq/L (20-26)
[2021-09-24] MEDS: *HR* OxyCODONE Immed Rel 5 MG TABLET PO PRN ×3 (14:24→23:58)
[2021-09-25] MEDS: Acetaminophen 325 MG TABLET PO PRN (04:15)
[2021-09-25 04:50] LABS: Basophils % 0.5 %; Eosinophils # 0.2 K/mcL (0.0-0.6); Eosinophils % 2.5 %; Hematocrit 23.8 % (37.5-50.1); Hemoglobin 7.5 g/dL (12.9-16.9); Immature Granulocytes % 1.7 % (0-4); Lymphocytes # 1.5 K/mcL (0.6-4.6); Lymphocytes % 18.1 %; Mean Corpuscular HGB Conc 31.5 g/dL (31.6-35.5); Mean Corpuscular Hemoglobin 29.1 pg (28.0-33.3); Mean Corpuscular Volume 92.2 fL (83.0-100.0); Mean Platelet Volume 9.5 fL (9.4-12.4); Monocytes # 0.7 K/mcL (0.0-1.3); Monocytes % 8.4 %; Neutrophils # 5.6 K/mcL (1.6-8.9); Platelet Count 289 K/mcL (140-400); Red Blood Count 2.58 M/mcL (4.19-5.50); Red Cell Distribution Width 14.9 % (11.5-14.5); Segmented Neutrophils % 68.8 %; White Blood Count 8.1 K/mcL (4.3-11.1)
[2021-09-25 05:13] LABS: Alanine Aminotransferase 3 Units/L (7-52); Albumin 2.6 g/dL (3.5-5.7); Alkaline Phosphatase 44 Units/L (34-104); Aspartate Amino Transferase 19 Units/L (13-39); BUN/Creatinine Ratio 15 (6-26); Bilirubin,Total 0.5 mg/dL (0.3-1.0); Blood Urea Nitrogen 9 mg/dL (8-23); Calcium 7.6 mg/dL (8.6-10.3); Carbon Dioxide 33 mEq/L (23-29); Chloride 100 mEq/L (98-107); Globulin 2.6 g/dL (2.4-3.5); Glucose 147 mg/dL (70-105); Magnesium 1.4 mg/dL (1.6-2.6); Osmolality,Calculated 289 (280-300); Phosphorous 2.6 mg/dL (2.7-4.5); Potassium 3.1 mEq/L (3.5-5.1); Sodium 139 mEq/L (136-145); Total Protein 5.2 g/dL (6.4-8.9); eGFR For African Americans > 60 (> 60); eGFR For Non-African Americans > 60 (> 60)
[2021-09-25] MEDS: Potassium Chloride 40 MEQ/200 ML BAG IVPB PRN (06:07)
[2021-09-25] MEDS: Ondansetron 4 MG/2 ML VIAL IVP PRN (06:54)
[2021-09-25] MEDS: Gabapentin 300 MG CAPSULE PO SCH ×3 (07:37→20:53)
[2021-09-25] MEDS: Furosemide 20 MG TABLET PO SCH (07:38)
[2021-09-25] MEDS: Loratadine 10 MG TABLET PO SCH (07:47)
[2021-09-25] MEDS: Insulin LISPRO 300 UNITS/3 ML VIAL SUBQ SCH ×4 (07:47→20:58)
[2021-09-25] MEDS: Pantoprazole 40 MG VIAL IVP SCH (07:49)
[2021-09-25] MEDS: CeFAZolin 2,000 MG/120 ML BAG IVPB SCH ×2 (07:52→17:33)
[2021-09-25] MEDS ORDERED: diazePAM 10 MG/2 ML SYRINGE IVP ONE (10:59)
[2021-09-25] MEDS: Baclofen 10 MG TABLET PO PRN (11:00)
[2021-09-25] MEDS: Nystatin POWDER 30 GM BOTTLE TP SCH ×2 (11:01→20:59)
[2021-09-25 11:27] LABS: Hematocrit 25.2 % (37.5-50.1); Hemoglobin 7.8 g/dL (12.9-16.9)
[2021-09-25 11:46] LABS: Magnesium 1.6 mg/dL (1.6-2.6); Phosphorous 2.9 mg/dL (2.7-4.5); Potassium 3.4 mEq/L (3.5-5.1)
[2021-09-25] MEDS: *HR* OxyCODONE Immed Rel 5 MG TABLET PO PRN ×2 (13:53→20:54)
[2021-09-25] MEDS ORDERED: Potassium Chloride Elixir 20 MEQ/15 ML UDC PO ONE (14:00)
[2021-09-25] MEDS: Morphine Sulfate 2 MG/ML SYRINGE IVP PRN (20:53)
[2021-09-26] MEDS: Morphine Sulfate 2 MG/ML SYRINGE IVP PRN (01:15)
[2021-09-26] MEDS: Baclofen 10 MG TABLET PO PRN ×2 (01:15→23:45)
[2021-09-26] MEDS: CeFAZolin 2,000 MG/120 ML BAG IVPB SCH (01:16)
[2021-09-26] MEDS: *HR* OxyCODONE Immed Rel 5 MG TABLET PO PRN ×4 (04:54→20:50)
[2021-09-26 04:58] LABS: Basophils % 0.6 %; Eosinophils # 0.2 K/mcL (0.0-0.6); Eosinophils % 3.4 %; Hematocrit 25.4 % (37.5-50.1); Hemoglobin 7.9 g/dL (12.9-16.9); Immature Granulocytes % 1.7 % (0-4); Lymphocytes # 1.4 K/mcL (0.6-4.6); Lymphocytes % 19.2 %; Mean Corpuscular HGB Conc 31.1 g/dL (31.6-35.5); Mean Corpuscular Hemoglobin 28.9 pg (28.0-33.3); Mean Platelet Volume 9.5 fL (9.4-12.4); Monocytes # 0.6 K/mcL (0.0-1.3); Monocytes % 8.1 %; Neutrophils # 4.8 K/mcL (1.6-8.9); Platelet Count 301 K/mcL (140-400); Red Blood Count 2.73 M/mcL (4.19-5.50); Red Cell Distribution Width 14.6 % (11.5-14.5); White Blood Count 7.2 K/mcL (4.3-11.1)
[2021-09-26 05:12] LABS: INR 1.2; Prothrombin Time 13.4 Seconds (9.4-12.1)
[2021-09-26 05:30] LABS: Alanine Aminotransferase 4 Units/L (7-52); Albumin 2.6 g/dL (3.5-5.7); Albumin/Globulin Ratio 0.9 (1.1-2.2); Alkaline Phosphatase 49 Units/L (34-104); Aspartate Amino Transferase 18 Units/L (13-39); BUN/Creatinine Ratio 11 (6-26); Bilirubin,Total 0.4 mg/dL (0.3-1.0); Blood Urea Nitrogen 6 mg/dL (8-23); Carbon Dioxide 33 mEq/L (23-29); Chloride 99 mEq/L (98-107); Glucose 121 mg/dL (70-105); Magnesium 1.6 mg/dL (1.6-2.6); Osmolality,Calculated 287 (280-300); Phosphorous 2.9 mg/dL (2.7-4.5); Potassium 3.5 mEq/L (3.5-5.1); Sodium 139 mEq/L (136-145); Total Protein 5.6 g/dL (6.4-8.9); eGFR For African Americans > 60 (> 60); eGFR For Non-African Americans > 60 (> 60)
[2021-09-26] MEDS ORDERED: *HR* HYDROmorphone (PF) 1 MG/ML SYRINGE IVP ONE (05:39)
[2021-09-26] MEDS: Insulin LISPRO 300 UNITS/3 ML VIAL SUBQ SCH ×4 (08:52→20:50)
[2021-09-26] MEDS: Furosemide 20 MG TABLET PO SCH (08:53)
[2021-09-26] MEDS: Gabapentin 300 MG CAPSULE PO SCH ×3 (08:53→20:50)
[2021-09-26] MEDS: Loratadine 10 MG TABLET PO SCH (08:53)
[2021-09-26] MEDS: Pantoprazole 40 MG VIAL IVP SCH (08:54)
[2021-09-26] MEDS: Nystatin POWDER 30 GM BOTTLE TP SCH ×2 (08:54→20:51)
[2021-09-26] MEDS: Vancomycin 2,000 MG/520 ML IV.SOLN IVPB SCH ×2 (09:07→20:51)
[2021-09-27] MEDS: *HR* OxyCODONE Immed Rel 5 MG TABLET PO PRN ×4 (06:13→22:46)
[2021-09-27 06:39] LABS: VBG Ionized Calcium 1.11 mmol/L (1.15-1.35)
[2021-09-27 06:42] LABS: Basophils % 0.4 %; Eosinophils # 0.2 K/mcL (0.0-0.6); Eosinophils % 2.8 %; Hematocrit 26.4 % (37.5-50.1); Hemoglobin 8.3 g/dL (12.9-16.9); Immature Granulocytes % 1.4 % (0-4); Lymphocytes # 1.6 K/mcL (0.6-4.6); Lymphocytes % 21.3 %; Mean Corpuscular HGB Conc 31.4 g/dL (31.6-35.5); Mean Corpuscular Hemoglobin 28.8 pg (28.0-33.3); Mean Corpuscular Volume 91.7 fL (83.0-100.0); Mean Platelet Volume 9.1 fL (9.4-12.4); Monocytes # 0.7 K/mcL (0.0-1.3); Neutrophils # 4.7 K/mcL (1.6-8.9); Platelet Count 297 K/mcL (140-400); Red Blood Count 2.88 M/mcL (4.19-5.50); Red Cell Distribution Width 14.2 % (11.5-14.5); Segmented Neutrophils % 65.1 %; White Blood Count 7.3 K/mcL (4.3-11.1)
[2021-09-27 07:00] LABS: Alanine Aminotransferase 4 Units/L (7-52); Albumin 2.7 g/dL (3.5-5.7); Albumin/Globulin Ratio 0.9 (1.1-2.2); Alkaline Phosphatase 47 Units/L (34-104); Aspartate Amino Transferase 15 Units/L (13-39); BUN/Creatinine Ratio 9 (6-26); Bilirubin,Total 0.5 mg/dL (0.3-1.0); Blood Urea Nitrogen 5 mg/dL (8-23); Calcium 7.8 mg/dL (8.6-10.3); Carbon Dioxide 39 mEq/L (23-29); Chloride 96 mEq/L (98-107); Glucose 157 mg/dL (70-105); Magnesium 1.4 mg/dL (1.6-2.6); Osmolality,Calculated 289 (280-300); Potassium 3.5 mEq/L (3.5-5.1); Sodium 139 mEq/L (136-145); Total Protein 5.7 g/dL (6.4-8.9); eGFR For African Americans > 60 (> 60); eGFR For Non-African Americans > 60 (> 60)
[2021-09-27] MEDS: Gabapentin 300 MG CAPSULE PO SCH ×3 (07:48→21:52)
[2021-09-27] MEDS: Furosemide 20 MG TABLET PO SCH (07:48)
[2021-09-27] MEDS: Loratadine 10 MG TABLET PO SCH (07:49)
[2021-09-27] MEDS: Pantoprazole 40 MG VIAL IVP SCH (07:49)
[2021-09-27] MEDS: Insulin LISPRO 300 UNITS/3 ML VIAL SUBQ SCH ×4 (07:56→21:53)
[2021-09-27] MEDS: Vancomycin 2,000 MG/520 ML IV.SOLN IVPB SCH ×2 (08:01→21:55)
[2021-09-27] MEDS: Nystatin POWDER 30 GM BOTTLE TP SCH ×2 (10:08→21:54)
[2021-09-27] MEDS: Baclofen 10 MG TABLET PO PRN ×2 (10:10→23:02)
[2021-09-27] MEDS: CeFAZolin 2,000 MG/120 ML BAG IVPB SCH (21:11)
[2021-09-28 05:36] LABS: VBG Ionized Calcium 1.09 mmol/L (1.15-1.35)
[2021-09-28 06:39] LABS: Basophils % 0.5 %; Eosinophils # 0.2 K/mcL (0.0-0.6); Eosinophils % 3.2 %; Hematocrit 26.2 % (37.5-50.1); Hemoglobin 8.3 g/dL (12.9-16.9); Immature Granulocytes % 1.3 % (0-4); Lymphocytes # 1.5 K/mcL (0.6-4.6); Mean Corpuscular HGB Conc 31.7 g/dL (31.6-35.5); Mean Corpuscular Hemoglobin 28.9 pg (28.0-33.3); Mean Corpuscular Volume 91.3 fL (83.0-100.0); Mean Platelet Volume 9.3 fL (9.4-12.4); Monocytes # 0.6 K/mcL (0.0-1.3); Monocytes % 9.8 %; Neutrophils # 3.9 K/mcL (1.6-8.9); Platelet Count 290 K/mcL (140-400); Red Blood Count 2.87 M/mcL (4.19-5.50); Red Cell Distribution Width 14.1 % (11.5-14.5); Segmented Neutrophils % 61.2 %; White Blood Count 6.3 K/mcL (4.3-11.1)
[2021-09-28 06:40] LABS: VBG Ionized Calcium 1.01 mmol/L (1.15-1.35)
[2021-09-28] MEDS: Pantoprazole 40 MG VIAL IVP SCH (07:18)
[2021-09-28] MEDS: Nystatin POWDER 30 GM BOTTLE TP SCH ×2 (07:19→20:27)
[2021-09-28] MEDS: Gabapentin 300 MG CAPSULE PO SCH ×3 (07:19→20:27)
[2021-09-28] MEDS: Insulin LISPRO 300 UNITS/3 ML VIAL SUBQ SCH ×4 (07:19→20:26)
[2021-09-28] MEDS: Loratadine 10 MG TABLET PO SCH (07:19)
[2021-09-28] MEDS: Furosemide 20 MG TABLET PO SCH (07:19)
[2021-09-28] MEDS: *HR* OxyCODONE Immed Rel 5 MG TABLET PO PRN ×3 (07:22→22:37)
[2021-09-28] MEDS: Vancomycin 2,000 MG/520 ML IV.SOLN IVPB SCH ×2 (07:22→20:28)
[2021-09-28] MEDS ORDERED: Ketorolac 30 MG/ML VIAL IVP ONE (09:38)
[2021-09-28] MEDS: Magnesium Oxide 400 MG TABLET PO SCH ×2 (09:43→20:27)
[2021-09-28 12:20] LABS: Alanine Aminotransferase 5 Units/L (7-52); Albumin 2.6 g/dL (3.5-5.7); Albumin/Globulin Ratio 0.9 (1.1-2.2); Alkaline Phosphatase 43 Units/L (34-104); Aspartate Amino Transferase 17 Units/L (13-39); BUN/Creatinine Ratio 10 (6-26); Bilirubin,Total 0.5 mg/dL (0.3-1.0); Blood Urea Nitrogen 5 mg/dL (8-23); Calcium 7.8 mg/dL (8.6-10.3); Carbon Dioxide 39 mEq/L (23-29); Chloride 95 mEq/L (98-107); Globulin 2.9 g/dL (2.4-3.5); Glucose 116 mg/dL (70-105); Magnesium 1.3 mg/dL (1.6-2.6); Osmolality,Calculated 288 (280-300); Phosphorous 3.2 mg/dL (2.7-4.5); Potassium 3.1 mEq/L (3.5-5.1); Sodium 140 mEq/L (136-145); Total Protein 5.5 g/dL (6.4-8.9); eGFR For African Americans > 60 (> 60); eGFR For Non-African Americans > 60 (> 60)
[2021-09-29 00:37] LABS: Basophils % 0.4 %; Eosinophils # 0.2 K/mcL (0.0-0.6); Eosinophils % 3.3 %; Hematocrit 24.6 % (37.5-50.1); Immature Granulocytes % 1.1 % (0-4); Lymphocytes # 1.6 K/mcL (0.6-4.6); Lymphocytes % 23.4 %; Mean Corpuscular HGB Conc 32.5 g/dL (31.6-35.5); Mean Corpuscular Hemoglobin 29.5 pg (28.0-33.3); Mean Corpuscular Volume 90.8 fL (83.0-100.0); Mean Platelet Volume 9.1 fL (9.4-12.4); Monocytes # 0.8 K/mcL (0.0-1.3); Monocytes % 10.7 %; Neutrophils # 4.3 K/mcL (1.6-8.9); Platelet Count 257 K/mcL (140-400); Red Blood Count 2.71 M/mcL (4.19-5.50); Red Cell Distribution Width 14.1 % (11.5-14.5); Segmented Neutrophils % 61.1 %
[2021-09-29 01:12] LABS: Alanine Aminotransferase 6 Units/L (7-52); Albumin 2.5 g/dL (3.5-5.7); Albumin/Globulin Ratio 0.8 (1.1-2.2); Alkaline Phosphatase 51 Units/L (34-104); Aspartate Amino Transferase 19 Units/L (13-39); BUN/Creatinine Ratio 9 (6-26); Bilirubin,Total 0.5 mg/dL (0.3-1.0); Blood Urea Nitrogen 6 mg/dL (8-23); Calcium 7.7 mg/dL (8.6-10.3); Carbon Dioxide 36 mEq/L (23-29); Chloride 97 mEq/L (98-107); Glucose 134 mg/dL (70-105); Magnesium 1.3 mg/dL (1.6-2.6); Osmolality,Calculated 288 (280-300); Phosphorous 3.4 mg/dL (2.7-4.5); Potassium 3.4 mEq/L (3.5-5.1); Sodium 139 mEq/L (136-145); Total Protein 5.5 g/dL (6.4-8.9); eGFR For African Americans > 60 (> 60); eGFR For Non-African Americans > 60 (> 60)
[2021-09-29] MEDS: Gabapentin 300 MG CAPSULE PO SCH ×3 (09:48→19:36)
[2021-09-29] MEDS: *HR* OxyCODONE Immed Rel 5 MG TABLET PO PRN (09:48)
[2021-09-29] MEDS: Insulin LISPRO 300 UNITS/3 ML VIAL SUBQ SCH ×4 (09:48→19:37)
[2021-09-29] MEDS: Pantoprazole 40 MG VIAL IVP SCH (09:49)
[2021-09-29] MEDS: Furosemide 20 MG TABLET PO SCH (09:49)
[2021-09-29] MEDS: Nystatin POWDER 30 GM BOTTLE TP SCH ×2 (09:49→19:36)
[2021-09-29] MEDS: Loratadine 10 MG TABLET PO SCH (09:49)
[2021-09-29] MEDS: Magnesium Oxide 400 MG TABLET PO SCH ×2 (09:49→19:36)
[2021-09-29] MEDS: Vancomycin 2,000 MG/520 ML IV.SOLN IVPB SCH (10:02)
[2021-09-29] MEDS: Acetaminophen 325 MG TABLET PO PRN ×2 (12:10→21:26)
[2021-09-29] MEDS: Sacubitril/Valsartan 24/26 MG 1 TABLET PO SCH (21:26)
[2021-09-29] MEDS: Baclofen 10 MG TABLET PO PRN (22:26)
[2021-09-30] MEDS: *HR* OxyCODONE Immed Rel 5 MG TABLET PO PRN ×4 (02:24→21:08)
[2021-09-30] MEDS ORDERED: hydrOXYzine pamoate 25 MG CAPSULE PO ONE (02:40)
[2021-09-30 02:55] LABS: Basophils % 0.4 %; Eosinophils # 0.2 K/mcL (0.0-0.6); Eosinophils % 2.7 %; Hematocrit 25.5 % (37.5-50.1); Hemoglobin 8.1 g/dL (12.9-16.9); Immature Granulocytes % 0.7 % (0-4); Lymphocytes # 1.5 K/mcL (0.6-4.6); Lymphocytes % 21.6 %; Mean Corpuscular HGB Conc 31.8 g/dL (31.6-35.5); Mean Corpuscular Hemoglobin 28.5 pg (28.0-33.3); Mean Corpuscular Volume 89.8 fL (83.0-100.0); Mean Platelet Volume 9.1 fL (9.4-12.4); Monocytes # 0.8 K/mcL (0.0-1.3); Monocytes % 11.6 %; Neutrophils # 4.4 K/mcL (1.6-8.9); Platelet Count 254 K/mcL (140-400); Red Blood Count 2.84 M/mcL (4.19-5.50)
[2021-09-30 04:08] LABS: Alanine Aminotransferase 8 Units/L (7-52); Albumin 2.6 g/dL (3.5-5.7); Albumin/Globulin Ratio 0.8 (1.1-2.2); Alkaline Phosphatase 69 Units/L (34-104); Aspartate Amino Transferase 20 Units/L (13-39); BUN/Creatinine Ratio 8 (6-26); Bilirubin,Total 0.5 mg/dL (0.3-1.0); Blood Urea Nitrogen 5 mg/dL (8-23); Calcium 7.8 mg/dL (8.6-10.3); Carbon Dioxide 35 mEq/L (23-29); Chloride 99 mEq/L (98-107); Globulin 3.1 g/dL (2.4-3.5); Glucose 137 mg/dL (70-105); Magnesium 1.4 mg/dL (1.6-2.6); Osmolality,Calculated 287 (280-300); Phosphorous 3.7 mg/dL (2.7-4.5); Potassium 3.4 mEq/L (3.5-5.1); Sodium 139 mEq/L (136-145); Total Protein 5.7 g/dL (6.4-8.9); eGFR For African Americans > 60 (> 60); eGFR For Non-African Americans > 60 (> 60)
[2021-09-30] MEDS: Gabapentin 300 MG CAPSULE PO SCH ×3 (08:25→21:06)
[2021-09-30] MEDS: Furosemide 20 MG TABLET PO SCH (08:25)
[2021-09-30] MEDS: Sacubitril/Valsartan 24/26 MG 1 TABLET PO SCH ×2 (08:25→21:05)
[2021-09-30] MEDS: Insulin LISPRO 300 UNITS/3 ML VIAL SUBQ SCH ×4 (08:26→20:57)
[2021-09-30] MEDS: Metoprolol XL (24 HR) Succ 50 MG TAB.ER.24H PO SCH (08:26)
[2021-09-30] MEDS: Loratadine 10 MG TABLET PO SCH (08:26)
[2021-09-30] MEDS: Magnesium Oxide 400 MG TABLET PO SCH ×2 (08:26→21:05)
[2021-09-30] MEDS: Nystatin POWDER 30 GM BOTTLE TP SCH ×2 (08:27→21:06)
[2021-09-30] MEDS ORDERED: Vancomycin 1,250 MG/262.5 ML IV.SOLN IVPB SCH (21:00)
[2021-09-30] MEDS: hydrOXYzine pamoate 25 MG CAPSULE PO PRN (23:18)
[2021-10-01] MEDS: *HR* OxyCODONE Immed Rel 5 MG TABLET PO PRN ×5 (02:27→20:52)
[2021-10-01 02:55] LABS: Basophils # 0.1 K/mcL (0.0-0.2); Basophils % 0.6 %; Eosinophils # 0.2 K/mcL (0.0-0.6); Eosinophils % 2.2 %; Hematocrit 27.5 % (37.5-50.1); Hemoglobin 8.6 g/dL (12.9-16.9); Immature Granulocytes % 0.6 % (0-4); Lymphocytes # 1.6 K/mcL (0.6-4.6); Lymphocytes % 19.3 %; Mean Corpuscular HGB Conc 31.3 g/dL (31.6-35.5); Mean Corpuscular Hemoglobin 28.7 pg (28.0-33.3); Mean Corpuscular Volume 91.7 fL (83.0-100.0); Mean Platelet Volume 9.3 fL (9.4-12.4); Monocytes % 12.5 %; Neutrophils # 5.3 K/mcL (1.6-8.9); Platelet Count 266 K/mcL (140-400); Red Cell Distribution Width 14.1 % (11.5-14.5); Segmented Neutrophils % 64.8 %; White Blood Count 8.2 K/mcL (4.3-11.1)
[2021-10-01 03:12] LABS: Alanine Aminotransferase 16 Units/L (7-52); Albumin 2.7 g/dL (3.5-5.7); Albumin/Globulin Ratio 0.8 (1.1-2.2); Alkaline Phosphatase 224 Units/L (34-104); Aspartate Amino Transferase 36 Units/L (13-39); BUN/Creatinine Ratio 8 (6-26); Bilirubin,Total 0.6 mg/dL (0.3-1.0); Blood Urea Nitrogen 5 mg/dL (8-23); Calcium 8.1 mg/dL (8.6-10.3); Carbon Dioxide 31 mEq/L (23-29); Chloride 98 mEq/L (98-107); Globulin 3.2 g/dL (2.4-3.5); Glucose 120 mg/dL (70-105); Osmolality,Calculated 282 (280-300); Potassium 3.6 mEq/L (3.5-5.1); Sodium 137 mEq/L (136-145); Total Protein 5.9 g/dL (6.4-8.9); eGFR For African Americans > 60 (> 60); eGFR For Non-African Americans > 60 (> 60)
[2021-10-01] MEDS: Magnesium Oxide 400 MG TABLET PO SCH ×2 (08:09→20:51)
[2021-10-01] MEDS: Sacubitril/Valsartan 24/26 MG 1 TABLET PO SCH ×2 (08:10→20:52)
[2021-10-01] MEDS: Loratadine 10 MG TABLET PO SCH (08:10)
[2021-10-01] MEDS: Furosemide 20 MG TABLET PO SCH (08:10)
[2021-10-01] MEDS: Nystatin POWDER 30 GM BOTTLE TP SCH ×2 (08:10→20:53)
[2021-10-01] MEDS: Gabapentin 300 MG CAPSULE PO SCH ×3 (08:10→20:52)
[2021-10-01] MEDS: Metoprolol XL (24 HR) Succ 50 MG TAB.ER.24H PO SCH (08:10)
[2021-10-01] MEDS: Insulin LISPRO 300 UNITS/3 ML VIAL SUBQ SCH ×4 (08:11→20:55)
[2021-10-01] MEDS: Acetaminophen 325 MG TABLET PO PRN (20:51)
[2021-10-02] MEDS: *HR* OxyCODONE Immed Rel 5 MG TABLET PO PRN ×4 (03:24→20:12)
[2021-10-02] MEDS: Benzonatate 100 MG CAPSULE PO PRN ×2 (05:12→16:24)
[2021-10-02] MEDS: Sacubitril/Valsartan 24/26 MG 1 TABLET PO SCH ×2 (08:37→20:12)
[2021-10-02] MEDS: Furosemide 20 MG TABLET PO SCH (08:37)
[2021-10-02] MEDS: Magnesium Oxide 400 MG TABLET PO SCH ×2 (08:37→20:12)
[2021-10-02] MEDS: Loratadine 10 MG TABLET PO SCH (08:37)
[2021-10-02] MEDS: Metoprolol XL (24 HR) Succ 50 MG TAB.ER.24H PO SCH (08:37)
[2021-10-02] MEDS: Gabapentin 300 MG CAPSULE PO SCH ×3 (08:38→20:12)
[2021-10-02] MEDS: Nystatin POWDER 30 GM BOTTLE TP SCH ×2 (08:39→20:10)
[2021-10-02] MEDS: Insulin LISPRO 300 UNITS/3 ML VIAL SUBQ SCH ×4 (08:39→20:14)
[2021-10-02] MEDS: Acetaminophen 325 MG TABLET PO PRN (16:54)
[2021-10-02] MEDS: hydrOXYzine pamoate 25 MG CAPSULE PO PRN (20:11)
[2021-10-03] MEDS: *HR* OxyCODONE Immed Rel 5 MG TABLET PO PRN ×3 (02:00→20:20)
[2021-10-03] MEDS: Benzonatate 100 MG CAPSULE PO PRN ×3 (02:05→20:20)
[2021-10-03] MEDS: Insulin LISPRO 300 UNITS/3 ML VIAL SUBQ SCH ×4 (07:54→20:21)
[2021-10-03] MEDS: Gabapentin 300 MG CAPSULE PO SCH ×3 (07:54→20:20)
[2021-10-03] MEDS: Furosemide 20 MG TABLET PO SCH (07:55)
[2021-10-03] MEDS: Metoprolol XL (24 HR) Succ 50 MG TAB.ER.24H PO SCH (07:55)
[2021-10-03] MEDS: Magnesium Oxide 400 MG TABLET PO SCH ×2 (07:55→20:20)
[2021-10-03] MEDS: Loratadine 10 MG TABLET PO SCH (07:55)
[2021-10-03] MEDS: Sacubitril/Valsartan 24/26 MG 1 TABLET PO SCH ×2 (07:55→20:20)
[2021-10-03] MEDS: Nystatin POWDER 30 GM BOTTLE TP SCH ×2 (07:55→20:21)
[2021-10-03] MEDS: Acetaminophen 325 MG TABLET PO PRN (12:41)
[2021-10-03] MEDS ORDERED: Pfizer Covid-19 Vaccine 30MCG/0.3ML IM ONE (12:43)
[2021-10-03] MEDS ORDERED: Perflutren Lipid Microsphere 1.3 ML in 0.9 % Sodium Chloride 8.7 ML IVP PRN (12:58)
[2021-10-03] MEDS: hydrOXYzine pamoate 25 MG CAPSULE PO PRN (23:03)
[2021-10-04] MEDS: Baclofen 10 MG TABLET PO PRN (01:38)
[2021-10-04] MEDS: *HR* OxyCODONE Immed Rel 5 MG TABLET PO PRN ×3 (01:38→20:50)
[2021-10-04 08:54] LABS: BUN/Creatinine Ratio 8 (6-26); Blood Urea Nitrogen 6 mg/dL (8-23); eGFR For African Americans > 60 (> 60); eGFR For Non-African Americans > 60 (> 60)
[2021-10-04] MEDS: Sacubitril/Valsartan 24/26 MG 1 TABLET PO SCH ×2 (10:02→20:49)
[2021-10-04] MEDS: Magnesium Oxide 400 MG TABLET PO SCH ×2 (10:02→20:50)
[2021-10-04] MEDS: Gabapentin 300 MG CAPSULE PO SCH ×3 (10:02→20:49)
[2021-10-04] MEDS: Metoprolol XL (24 HR) Succ 50 MG TAB.ER.24H PO SCH (10:02)
[2021-10-04] MEDS: Loratadine 10 MG TABLET PO SCH (10:02)
[2021-10-04] MEDS: Furosemide 20 MG TABLET PO SCH (10:02)
[2021-10-04] MEDS: Insulin LISPRO 300 UNITS/3 ML VIAL SUBQ SCH ×4 (10:03→20:35)
[2021-10-04] MEDS: Nystatin POWDER 30 GM BOTTLE TP SCH ×2 (10:04→20:50)
[2021-10-04] MEDS: Benzonatate 100 MG CAPSULE PO PRN (12:19)
[2021-10-04] MEDS: Vancomycin 1,250 MG/262.5 ML IV.SOLN IVPB SCH (14:38)
[2021-10-05] MEDS: Vancomycin 1,250 MG/262.5 ML IV.SOLN IVPB SCH (04:20)
[2021-10-05] MEDS: Insulin LISPRO 300 UNITS/3 ML VIAL SUBQ SCH (09:35)
[2021-10-05] MEDS: Magnesium Oxide 400 MG TABLET PO SCH (09:36)
[2021-10-05] MEDS: Metoprolol XL (24 HR) Succ 50 MG TAB.ER.24H PO SCH (09:36)
[2021-10-05] MEDS: Furosemide 20 MG TABLET PO SCH (09:36)
[2021-10-05] MEDS: Sacubitril/Valsartan 24/26 MG 1 TABLET PO SCH (09:36)
[2021-10-05] MEDS: Loratadine 10 MG TABLET PO SCH (09:36)
[2021-10-05] MEDS: Gabapentin 300 MG CAPSULE PO SCH ×2 (09:36→15:53)
[2021-10-05] MEDS: Nystatin POWDER 30 GM BOTTLE TP SCH (09:36)
[2021-10-05] MEDS: *HR* OxyCODONE Immed Rel 5 MG TABLET PO PRN ×2 (09:39→15:53)
[2021-10-05 10:56] VITALS: BP 110/48; PULSE 96; TEMP 97.8; O2SAT 100
[2021-10-05 12:50] LABS: Adenovirus Not Detected (Not Detect); Bordetella Pertussis Not Detected (Not Detect); Chlamydophila pneumoniae Not Detected (Not Detect); Coronavirus 229E Not Detected (Not Detect); Coronavirus HKU1 Not Detected (Not Detect); Coronavirus NL63 Not Detected (Not Detect); Coronavirus OC43 Not Detected (Not Detect); Human Metapneumovirus Not Detected (Not Detect); Human Rhinovirus/Enterovirus Not Detected (Not Detect); Influenza A Subtype 2009 H1 Not Detected (Not Detect); Influenza B Not Detected (Not Detect); Mycoplasma pneumoniae Not Detected (Not Detect); Parainfluenza Virus 1 Not Detected (Not Detect); Parainfluenza Virus 2 Not Detected (Not Detect); Parainfluenza Virus 3 Not Detected (Not Detect); Parainfluenza Virus 4 Not Detected (Not Detect); Respiratory Syncytial Virus Not Detected (Not Detect); SARS-CoV-2 Not Detected (Not Detect)
== END 2021-10-05 16:39 | DRG 871 ==
LOC: EMEROOARM 12:27 → 2NENU 12:27 → SUATTDRO 15:58 → 2NENU 17:12 → SUATTDRO 09-13 11:30 → ICNU 09-14 13:46 → 2NNU 09-20 11:19 → ICNU 09-21 15:54 → 2NENU 09-27 22:22
PROVIDERS: ADMIT Internal Medicine; ATTEND Family Medicine

== ENCOUNTER 2021-10-18 16:49 | Inpatient (IN) ==
[2021-10-18] MEDS ORDERED: 0.9 % Sodium Chloride 1,000 ML IVC ONE (17:43)
[2021-10-18 18:00] LABS: ABG Base Excess 1 mEq/L (-2 to 3); ABG HCO3 31 mEq/L (21-27); ABG Oxygen Saturation 90 % (95-98); ABG PCO2 84 mmHg (35-45); ABG PH 7.18 pH Units (7.32-7.45); ABG PO2 77 mmHg (85-104); ABG TCO2 34 mEq/L (20-26)
[2021-10-18 18:32] LABS: Amphetamine Screen,Urine Negative ng/mL (Cutoff=1000); Barbiturate Screen,Urine Negative ng/mL (Cutoff=200); Benzodiazepines Screen,Urine Negative ng/mL (Cutoff=200); Cannabinoid Screen,Urine Negative ng/mL (Cutoff = 50); Cocaine Screen,Urine Negative ng/mL (Cutoff= 300); Opiate Screen,Urine Positive ng/mL (Cutoff=300); Phencyclidine Screen,Urine Negative ng/mL (Cutoff=25)
[2021-10-18 18:35] LABS: Bacteria,Urine Few per hpf (None-Few); Bilirubin,Urine Negative (Negative); Blood,Urine Negative (Negative); Clarity,Urine Turbid (Clear); Color,Urine Yellow (Yellow); Glucose,Urine (UA) >=1000 mg/dL (Normal); Ketones,Urine Negative (Negative); Leukocyte Esterase,Urine Negative (Negative); Mucus,Urine Few per lpf (None-Few); Nitrite,Urine Negative (Negative); PH,Urine 5.5 pH Units (5.0-8.0); Protein,Urine 50 mg/dL (Neg-Trace); RBC,Urine 0-3 per hpf (0-3); Specific Gravity,Urine 1.018 (1.010-1.025); Squamous Epithelial Cell,Urine Few per hpf (None-Few); Urobilinogen,Urine Normal (Normal); WBC,Urine 0-3 per hpf (0-3)
[2021-10-18 18:45] LABS: Prothrombin Time 11.4 Seconds (9.4-12.1)
[2021-10-18 18:47] LABS: Activated Partial Thrombo Time 29.4 Seconds (26.0-36.0)
[2021-10-18 18:59] LABS: Alanine Aminotransferase 7 Units/L (7-52); Albumin 3.6 g/dL (3.5-5.7); Alkaline Phosphatase 61 Units/L (34-104); Aspartate Amino Transferase 20 Units/L (13-39); BUN/Creatinine Ratio 10 (6-26); Bilirubin,Indirect 0.4 mg/dL (0.0-1.0); Bilirubin,Total 0.4 mg/dL (0.3-1.0); Blood Urea Nitrogen 16 mg/dL (8-23); Calcium 8.8 mg/dL (8.6-10.3); Carbon Dioxide 28 mEq/L (23-29); Chloride 99 mEq/L (98-107); Ethanol < 10 mg/dL (Less than 10); Globulin 3.5 g/dL (2.4-3.5); Glucose 148 mg/dL (70-105); Osmolality,Calculated 280 (280-300); Potassium 5.2 mEq/L (3.5-5.1); Sodium 133 mEq/L (136-145); Thyroid Stimulating Hormone 0.528 mcIU/mL (0.340-5.600); Total Protein 7.1 g/dL (6.4-8.9); Troponin I < 0.03 ng/mL (< 0.04); eGFR For African Americans 52 (> 60); eGFR For Non-African Americans 43 (> 60)
[2021-10-18 19:19] LABS: Basophils % 0.3 %; Eosinophils # 0.1 K/mcL (0.0-0.6); Eosinophils % 0.6 %; Hematocrit 31.4 % (37.5-50.1); Hemoglobin 9.3 g/dL (12.9-16.9); Immature Granulocytes % 1.7 % (0-4); Lymphocytes # 1.3 K/mcL (0.6-4.6); Lymphocytes % 11.9 %; Mean Corpuscular HGB Conc 29.6 g/dL (31.6-35.5); Mean Corpuscular Hemoglobin 28.5 pg (28.0-33.3); Mean Corpuscular Volume 96.3 fL (83.0-100.0); Monocytes # 0.8 K/mcL (0.0-1.3); Neutrophils # 8.1 K/mcL (1.6-8.9); Platelet Count 271 K/mcL (140-400); Red Blood Count 3.26 M/mcL (4.19-5.50); Red Cell Distribution Width 14.5 % (11.5-14.5); Segmented Neutrophils % 77.5 %; White Blood Count 10.5 K/mcL (4.3-11.1)
[2021-10-18 19:48] LABS: Vancomycin,Random 30 mcg/mL
[2021-10-19 01:47] LABS: Blood Gas VT 500 cc; Mixed Venous Blood pCO2 76 mmHg (44-46); Mixed Venous Blood pO2 46 mmHg (35-45)
[2021-10-19] MEDS ORDERED: methylPREDNISolone 125 MG/2 ML VIAL IVP ONE (01:55)
[2021-10-19] MEDS ORDERED: Ondansetron 4 MG/2 ML VIAL IVP PRN (02:05)
[2021-10-19] MEDS ORDERED: Naloxone 0.4 MG/ML INJ IVP PRN (02:05)
[2021-10-19] MEDS: Ipratropium/Albuterol Neb 3 ML IH SCH ×6 (03:24→23:15)
[2021-10-19 04:42] LABS: Hematocrit 29.8 % (37.5-50.1); Mean Corpuscular HGB Conc 30.2 g/dL (31.6-35.5); Mean Corpuscular Hemoglobin 28.8 pg (28.0-33.3); Mean Corpuscular Volume 95.2 fL (83.0-100.0); Platelet Count 226 K/mcL (140-400); Red Blood Count 3.13 M/mcL (4.19-5.50); Red Cell Distribution Width 14.5 % (11.5-14.5); White Blood Count 10.9 K/mcL (4.3-11.1)
[2021-10-19] MEDS: MethylPREDNISolone 40 MG/ML VIAL IVP SCH ×3 (05:22→17:55)
[2021-10-19 05:29] LABS: Protein/Creatinine Ratio,Urine 0.74 mg/mg (0.00-0.20)
[2021-10-19 05:30] LABS: Calcium 8.7 mg/dL (8.6-10.3); Potassium 4.6 mEq/L (3.5-5.1)
[2021-10-19 05:38] LABS: ABG Base Excess -1 mEq/L (-2 to 3); ABG HCO3 28 mEq/L (21-27); ABG Oxygen Saturation 97 % (95-98); ABG PCO2 64 mmHg (35-45); ABG PH 7.24 pH Units (7.32-7.45); ABG PO2 104 mmHg (85-104); ABG TCO2 29 mEq/L (20-26); Blood Gas Modality avaps; Blood Gas VT 500 cc
[2021-10-19] MEDS ORDERED: *HR* Enoxaparin 40 MG/0.4 ML SYRINGE SQ SCH (06:00)
[2021-10-19] MEDS: 0.9 % Sodium Chloride 1,000 ML IVC SCH ×2 (07:42→17:54)
[2021-10-19 11:14] LABS: ABG Base Excess -1 mEq/L (-2 to 3); ABG HCO3 26 mEq/L (21-27); ABG Oxygen Saturation 93 % (95-98); ABG PCO2 49 mmHg (35-45); ABG PH 7.32 pH Units (7.32-7.45); ABG PO2 73 mmHg (85-104); ABG TCO2 27 mEq/L (20-26); Blood Gas VT 500 cc
[2021-10-19 16:57] LABS: Uric Acid 6.1 mg/dL (2.3-7.6)
[2021-10-19 17:17] LABS: Hepatitis B Surface Antigen Nonreactive (Nonreactive)
[2021-10-19 17:46] LABS: Hepatitis C Virus Antibody Nonreactive (Nonreactive)
[2021-10-19 17:51] LABS: Hepatitis A Antibody IgM Nonreactive (Nonreactive); Hepatitis B Core IgM Nonreactive (Nonreactive)
[2021-10-19] MEDS: Metoprolol XL (24 HR) Succ 50 MG TAB.ER.24H PO SCH (17:58)
[2021-10-19] MEDS: *HR* OxyCODONE/APAP 10/325 TABLET PO PRN (19:06)
[2021-10-19] MEDS: Aspirin 81 MG TAB.CHEW PO SCH (20:34)
[2021-10-19] MEDS: CYCLOSPORINE OPTHALMIC OP SCH (20:35)
[2021-10-19] MEDS: Gabapentin 100 MG CAPSULE PO SCH (20:35)
[2021-10-19] MEDS: hydrOXYzine pamoate 25 MG CAPSULE PO PRN (21:50)
[2021-10-19] MEDS: Baclofen 10 MG TABLET PO PRN (21:50)
[2021-10-20] MEDS ORDERED: *HR* LORazepam 2 MG/ML VIAL IVP ONE ×2 (02:20→05:15)
[2021-10-20] MEDS: Ipratropium/Albuterol Neb 3 ML IH SCH ×6 (04:16→23:25)
[2021-10-20] MEDS: MethylPREDNISolone 40 MG/ML VIAL IVP SCH ×2 (05:25→20:35)
[2021-10-20 06:09] LABS: Basophils % 0.1 %; Hematocrit 28.2 % (37.5-50.1); Hemoglobin 8.9 g/dL (12.9-16.9); Lymphocytes # 1.3 K/mcL (0.6-4.6); Lymphocytes % 14.9 %; Mean Corpuscular HGB Conc 31.6 g/dL (31.6-35.5); Mean Corpuscular Hemoglobin 28.5 pg (28.0-33.3); Mean Corpuscular Volume 90.4 fL (83.0-100.0); Mean Platelet Volume 9.6 fL (9.4-12.4); Monocytes # 0.5 K/mcL (0.0-1.3); Platelet Count 248 K/mcL (140-400); Red Blood Count 3.12 M/mcL (4.19-5.50)
[2021-10-20 06:56] LABS: Calcium 8.9 mg/dL (8.6-10.3); Potassium 3.9 mEq/L (3.5-5.1)
[2021-10-20] MEDS ORDERED: Vancomycin 1,500 MG/265 ML IV.SOLN IVPB ONE (07:51)
[2021-10-20] MEDS ORDERED: Haloperidol Lactate 5 MG/ML VIAL IVP ONE (07:59)
[2021-10-20] MEDS: 0.9 % Sodium Chloride 1,000 ML IVC SCH ×2 (08:24→19:37)
[2021-10-20] MEDS ORDERED: MethylPREDNISolone 40 MG/ML VIAL IVP SCH (08:45)
[2021-10-20 08:48] LABS: ABG Base Excess -1 mEq/L (-2 to 3); ABG HCO3 24 mEq/L (21-27); ABG Oxygen Saturation 89 % (95-98); ABG PCO2 38 mmHg (35-45); ABG PH 7.41 pH Units (7.32-7.45); ABG PO2 56 mmHg (85-104); ABG TCO2 25 mEq/L (20-26)
[2021-10-20] MEDS ORDERED: Haloperidol Lactate 5 MG/ML VIAL IVP PRN (12:26)
[2021-10-20] MEDS: Gabapentin 100 MG CAPSULE PO SCH ×3 (12:30→20:32)
[2021-10-20] MEDS: CYCLOSPORINE OPTHALMIC OP SCH ×2 (12:30→20:45)
[2021-10-20] MEDS ORDERED: *HR* Dextrose 50 % in Water (Syg) 50 ML SYRINGE IVP PRN (13:26)
[2021-10-20] MEDS ORDERED: Dextrose Gel 15 GM/37.5 ML TUBE PO PRN ×2 (13:26)
[2021-10-20] MEDS ORDERED: D5% in Water 1,000 ML IVC PRN (13:26)
[2021-10-20] MEDS ORDERED: QUEtiapine Fumarate 25 MG TABLET PO SCH ×2 (13:30→21:00)
[2021-10-20] MEDS: Dexmedetomidine HCl 400 MCG/100 ML MLS IVC SCH ×2 (13:55→20:41)
[2021-10-20] MEDS: Metoprolol XL (24 HR) Succ 50 MG TAB.ER.24H PO SCH (16:11)
[2021-10-20] MEDS: Insulin LISPRO 300 UNITS/3 ML VIAL SUBQ SCH (18:56)
[2021-10-20] MEDS: Thiamine (B-1) 100 MG in 0.9 % Sodium Chloride 50 ML IVPB SCH (20:29)
[2021-10-20] MEDS: Aspirin 81 MG TAB.CHEW PO SCH (20:32)
[2021-10-21] MEDS: Insulin LISPRO 300 UNITS/3 ML VIAL SUBQ SCH ×4 (00:02→17:43)
[2021-10-21 01:56] LABS: Alanine Aminotransferase 6 Units/L (7-52); Albumin 3.4 g/dL (3.5-5.7); Albumin/Globulin Ratio 1.2 (1.1-2.2); Alkaline Phosphatase 46 Units/L (34-104); Aspartate Amino Transferase 8 Units/L (13-39); BUN/Creatinine Ratio 27 (6-26); Bilirubin,Total 0.3 mg/dL (0.3-1.0); Blood Urea Nitrogen 30 mg/dL (8-23); Calcium 8.8 mg/dL (8.6-10.3); Carbon Dioxide 26 mEq/L (23-29); Carbon Dioxide 27 mEq/L (23-29); Chloride 104 mEq/L (98-107); Chloride 105 mEq/L (98-107); Globulin 2.9 g/dL (2.4-3.5); Glucose 161 mg/dL (70-105); Glucose 166 mg/dL (70-105); Osmolality,Calculated 300 (280-300); Potassium 4.1 mEq/L (3.5-5.1); Sodium 140 mEq/L (136-145); Total Protein 6.3 g/dL (6.4-8.9); eGFR For African Americans > 60 (> 60); eGFR For Non-African Americans > 60 (> 60)
[2021-10-21 01:57] LABS: % Iron Saturation 19 % (20-55); Iron 48 mcg/dL (65-175); Transferrin 182 mg/dL (203-362)
[2021-10-21 02:06] LABS: Hematocrit 26.8 % (37.5-50.1); Hemoglobin 8.4 g/dL (12.9-16.9); Immature Granulocytes % 0.6 % (0-4); Lymphocytes # 0.5 K/mcL (0.6-4.6); Lymphocytes % 7.9 %; Mean Corpuscular HGB Conc 31.3 g/dL (31.6-35.5); Mean Corpuscular Hemoglobin 28.4 pg (28.0-33.3); Mean Corpuscular Volume 90.5 fL (83.0-100.0); Monocytes # 0.3 K/mcL (0.0-1.3); Neutrophils # 5.6 K/mcL (1.6-8.9); Platelet Count 211 K/mcL (140-400); Red Blood Count 2.96 M/mcL (4.19-5.50); Segmented Neutrophils % 87.5 %; White Blood Count 6.5 K/mcL (4.3-11.1)
[2021-10-21 02:15] LABS: Ferritin 159 ng/mL (20-250)
[2021-10-21 02:20] LABS: Folate 6.3 ng/mL (3.0-16.0)
[2021-10-21 03:29] LABS: Estimated Average Glucose 128 mg/dl; Hemoglobin A1C 6.1 %
[2021-10-21] MEDS: Ipratropium/Albuterol Neb 3 ML IH SCH ×6 (03:56→23:13)
[2021-10-21] MEDS: MethylPREDNISolone 40 MG/ML VIAL IVP SCH (05:45)
[2021-10-21] MEDS: 0.9 % Sodium Chloride 1,000 ML IVC SCH (07:50)
[2021-10-21] MEDS: Gabapentin 100 MG CAPSULE PO SCH ×3 (07:50→20:10)
[2021-10-21] MEDS: Metoprolol XL (24 HR) Succ 50 MG TAB.ER.24H PO SCH (07:50)
[2021-10-21] MEDS ORDERED: Vancomycin 1,500 MG/265 ML IV.SOLN IVPB ONE (10:48)
[2021-10-21] MEDS: *HR* OxyCODONE/APAP 10/325 TABLET PO PRN ×2 (11:24→16:11)
[2021-10-21] MEDS: CYCLOSPORINE OPTHALMIC OP SCH ×2 (11:55→20:11)
[2021-10-21] MEDS ORDERED: Artificial Tears SOLN 15 ML BOTTLE BOTH EYES PRN (12:05)
[2021-10-21] MEDS: Thiamine (B-1) 100 MG in 0.9 % Sodium Chloride 50 ML IVPB SCH ×2 (13:06→20:09)
[2021-10-21] MEDS: ALPRAZolam 0.25 MG TABLET PO PRN (14:07)
[2021-10-21] MEDS: hydrOXYzine pamoate 25 MG CAPSULE PO PRN (16:12)
[2021-10-21] MEDS ORDERED: haloperidoL 5 MG TABLET PO ONE (17:41)
[2021-10-21] MEDS: *HR* Heparin 5,000 UNIT/ML VIAL SQ SCH (17:44)
[2021-10-21] MEDS: Aspirin 81 MG TAB.CHEW PO SCH (20:10)
[2021-10-21] MEDS: Baclofen 10 MG TABLET PO PRN (21:44)
[2021-10-22] MEDS: Insulin LISPRO 300 UNITS/3 ML VIAL SUBQ SCH ×4 (00:04→18:06)
[2021-10-22] MEDS: hydrOXYzine pamoate 25 MG CAPSULE PO PRN ×4 (00:10→23:16)
[2021-10-22] MEDS: *HR* OxyCODONE/APAP 10/325 TABLET PO PRN ×4 (00:10→23:16)
[2021-10-22] MEDS: Ipratropium/Albuterol Neb 3 ML IH SCH ×6 (04:08→23:23)
[2021-10-22] MEDS: *HR* Heparin 5,000 UNIT/ML VIAL SQ SCH ×2 (04:46→18:05)
[2021-10-22] MEDS: ALPRAZolam 0.25 MG TABLET PO PRN ×4 (04:46→23:16)
[2021-10-22] MEDS: predniSONE 20 MG TABLET PO SCH (08:38)
[2021-10-22] MEDS: CYCLOSPORINE OPTHALMIC OP SCH ×2 (08:38→22:08)
[2021-10-22] MEDS: Metoprolol XL (24 HR) Succ 50 MG TAB.ER.24H PO SCH (08:38)
[2021-10-22] MEDS: Gabapentin 100 MG CAPSULE PO SCH ×3 (08:38→21:35)
[2021-10-22] MEDS: Thiamine (B-1) 100 MG in 0.9 % Sodium Chloride 50 ML IVPB SCH ×2 (08:42→22:07)
[2021-10-22 09:27] LABS: BUN/Creatinine Ratio 21 (6-26); Blood Urea Nitrogen 21 mg/dL (8-23); Calcium 8.7 mg/dL (8.6-10.3); Carbon Dioxide 27 mEq/L (23-29); Chloride 105 mEq/L (98-107); Glucose 113 mg/dL (70-105); Osmolality,Calculated 290 (280-300); Potassium 3.4 mEq/L (3.5-5.1); Sodium 138 mEq/L (136-145); eGFR For African Americans > 60 (> 60); eGFR For Non-African Americans > 60 (> 60)
[2021-10-22] MEDS: Vancomycin 1,750 MG/517.5 ML IV.SOLN IVPB SCH (14:57)
[2021-10-22] MEDS: Haloperidol Lactate 5 MG/ML VIAL IVP PRN ×2 (14:58→21:34)
[2021-10-22] MEDS: Benzonatate 100 MG CAPSULE PO PRN (14:58)
[2021-10-22] MEDS: Baclofen 10 MG TABLET PO PRN (14:59)
[2021-10-22] MEDS: 0.9 % Sodium Chloride 1,000 ML IVC SCH (15:00)
[2021-10-22] MEDS: Aspirin 81 MG TAB.CHEW PO SCH (21:35)
[2021-10-22] MEDS: Sacubitril/Valsartan 24/26 MG 1 TABLET PO SCH (22:07)
[2021-10-23] MEDS: Insulin LISPRO 300 UNITS/3 ML VIAL SUBQ SCH ×4 (00:16→18:18)
[2021-10-23] MEDS: Ipratropium/Albuterol Neb 3 ML IH SCH ×2 (04:00→08:13)
[2021-10-23] MEDS: *HR* Heparin 5,000 UNIT/ML VIAL SQ SCH ×2 (05:10→18:16)
[2021-10-23 07:01] LABS: BUN/Creatinine Ratio 19 (6-26); Blood Urea Nitrogen 19 mg/dL (8-23); Calcium 8.3 mg/dL (8.6-10.3); Carbon Dioxide 28 mEq/L (23-29); Chloride 105 mEq/L (98-107); Glucose 110 mg/dL (70-105); Magnesium 1.7 mg/dL (1.6-2.6); Osmolality,Calculated 291 (280-300); Phosphorous 3.1 mg/dL (2.7-4.5); Potassium 3.1 mEq/L (3.5-5.1); Sodium 139 mEq/L (136-145); eGFR For African Americans > 60 (> 60); eGFR For Non-African Americans > 60 (> 60)
[2021-10-23] MEDS: Furosemide 20 MG TABLET PO SCH (07:59)
[2021-10-23] MEDS: predniSONE 20 MG TABLET PO SCH (07:59)
[2021-10-23] MEDS: Metoprolol XL (24 HR) Succ 50 MG TAB.ER.24H PO SCH (07:59)
[2021-10-23] MEDS: *HR* OxyCODONE/APAP 10/325 TABLET PO PRN ×2 (08:00→18:16)
[2021-10-23] MEDS: hydrOXYzine pamoate 25 MG CAPSULE PO PRN (08:00)
[2021-10-23] MEDS: Sacubitril/Valsartan 24/26 MG 1 TABLET PO SCH ×2 (08:00→19:48)
[2021-10-23] MEDS: Gabapentin 100 MG CAPSULE PO SCH ×3 (08:01→19:47)
[2021-10-23] MEDS: CYCLOSPORINE OPTHALMIC OP SCH (09:17)
[2021-10-23] MEDS ORDERED: Ipratropium/Albuterol Neb 3 ML IH PRN (10:58)
[2021-10-23] MEDS: Thiamine (B-1) 100 MG in 0.9 % Sodium Chloride 50 ML IVPB SCH ×2 (11:12→19:47)
[2021-10-23] MEDS: Vancomycin 1,750 MG/517.5 ML IV.SOLN IVPB SCH (15:05)
[2021-10-23] MEDS: ALPRAZolam 0.25 MG TABLET PO PRN (19:48)
[2021-10-23] MEDS: Aspirin 81 MG TAB.CHEW PO SCH (19:48)
[2021-10-24] MEDS: Insulin LISPRO 300 UNITS/3 ML VIAL SUBQ SCH ×4 (01:01→18:03)
[2021-10-24] MEDS: hydrOXYzine pamoate 25 MG CAPSULE PO PRN ×2 (01:36→20:22)
[2021-10-24] MEDS: *HR* OxyCODONE/APAP 10/325 TABLET PO PRN ×2 (04:10→12:26)
[2021-10-24] MEDS: *HR* Heparin 5,000 UNIT/ML VIAL SQ SCH ×2 (05:29→18:03)
[2021-10-24] MEDS: Metoprolol XL (24 HR) Succ 50 MG TAB.ER.24H PO SCH (09:28)
[2021-10-24] MEDS: predniSONE 20 MG TABLET PO SCH (09:28)
[2021-10-24] MEDS: Sacubitril/Valsartan 24/26 MG 1 TABLET PO SCH ×2 (09:28→20:15)
[2021-10-24] MEDS: Gabapentin 100 MG CAPSULE PO SCH ×3 (09:28→20:15)
[2021-10-24] MEDS: Furosemide 20 MG TABLET PO SCH (09:28)
[2021-10-24] MEDS: Thiamine (B-1) 100 MG in 0.9 % Sodium Chloride 50 ML IVPB SCH (09:43)
[2021-10-24] MEDS: ALPRAZolam 0.25 MG TABLET PO PRN ×2 (12:26→20:16)
[2021-10-24] MEDS: Vancomycin 1,750 MG/517.5 ML IV.SOLN IVPB SCH (15:37)
[2021-10-24] MEDS ORDERED: Acetaminophen 325 MG TABLET PO ONE (17:35)
[2021-10-24] MEDS: Aspirin 81 MG TAB.CHEW PO SCH (20:15)
[2021-10-24] MEDS: Baclofen 10 MG TABLET PO PRN (20:16)
[2021-10-24] MEDS: Benzonatate 100 MG CAPSULE PO PRN (20:23)
[2021-10-25] MEDS: *HR* OxyCODONE/APAP 10/325 TABLET PO PRN ×2 (01:18→22:30)
[2021-10-25 06:05] LABS: BUN/Creatinine Ratio 17 (6-26); Blood Urea Nitrogen 18 mg/dL (8-23); eGFR For African Americans > 60 (> 60); eGFR For Non-African Americans > 60 (> 60)
[2021-10-25] MEDS: Thiamine (B-1) 100 MG in 0.9 % Sodium Chloride 50 ML IVPB SCH ×3 (06:12→19:39)
[2021-10-25] MEDS: *HR* Heparin 5,000 UNIT/ML VIAL SQ SCH ×2 (06:33→17:00)
[2021-10-25] MEDS: Baclofen 10 MG TABLET PO PRN ×2 (06:34→17:00)
[2021-10-25] MEDS: Insulin LISPRO 300 UNITS/3 ML VIAL SUBQ SCH ×3 (08:18→17:52)
[2021-10-25] MEDS: predniSONE 20 MG TABLET PO SCH (08:22)
[2021-10-25] MEDS: Sacubitril/Valsartan 24/26 MG 1 TABLET PO SCH ×2 (08:22→19:36)
[2021-10-25] MEDS: Metoprolol XL (24 HR) Succ 50 MG TAB.ER.24H PO SCH (08:22)
[2021-10-25] MEDS: Gabapentin 100 MG CAPSULE PO SCH ×3 (08:23→19:35)
[2021-10-25] MEDS: Furosemide 20 MG TABLET PO SCH (08:23)
[2021-10-25] MEDS: Spironolactone 25 MG TABLET PO SCH (08:23)
[2021-10-25] MEDS: ALPRAZolam 0.25 MG TABLET PO PRN ×2 (08:27→17:00)
[2021-10-25] MEDS: Benzonatate 100 MG CAPSULE PO PRN ×2 (08:27→17:03)
[2021-10-25] MEDS: hydrOXYzine pamoate 25 MG CAPSULE PO PRN ×2 (12:20→19:35)
[2021-10-25] MEDS: Vancomycin 1,750 MG/517.5 ML IV.SOLN IVPB SCH (14:03)
[2021-10-25] MEDS: Aspirin 81 MG TAB.CHEW PO SCH (19:35)
[2021-10-26] MEDS: *HR* Heparin 5,000 UNIT/ML VIAL SQ SCH ×2 (06:03→18:17)
[2021-10-26 06:51] LABS: BUN/Creatinine Ratio 14 (6-26); Blood Urea Nitrogen 16 mg/dL (8-23); Calcium 7.8 mg/dL (8.6-10.3); Carbon Dioxide 33 mEq/L (23-29); Chloride 102 mEq/L (98-107); Glucose 106 mg/dL (70-105); Magnesium 1.5 mg/dL (1.6-2.6); Osmolality,Calculated 294 (280-300); Phosphorous 4.8 mg/dL (2.7-4.5); Sodium 141 mEq/L (136-145); eGFR For African Americans > 60 (> 60); eGFR For Non-African Americans > 60 (> 60)
[2021-10-26] MEDS: Insulin LISPRO 300 UNITS/3 ML VIAL SUBQ SCH ×3 (07:15→18:17)
[2021-10-26] MEDS: ALPRAZolam 0.25 MG TABLET PO PRN ×2 (08:43→22:06)
[2021-10-26] MEDS: Furosemide 20 MG TABLET PO SCH (08:43)
[2021-10-26] MEDS: *HR* OxyCODONE/APAP 10/325 TABLET PO PRN ×3 (08:43→22:06)
[2021-10-26] MEDS: Sacubitril/Valsartan 24/26 MG 1 TABLET PO SCH ×2 (08:44→22:06)
[2021-10-26] MEDS: predniSONE 20 MG TABLET PO SCH (08:44)
[2021-10-26] MEDS: Gabapentin 100 MG CAPSULE PO SCH ×3 (08:44→22:06)
[2021-10-26] MEDS: Spironolactone 25 MG TABLET PO SCH (08:44)
[2021-10-26] MEDS: Metoprolol XL (24 HR) Succ 50 MG TAB.ER.24H PO SCH (08:44)
[2021-10-26] MEDS: Thiamine (B-1) 100 MG in 0.9 % Sodium Chloride 50 ML IVPB SCH ×2 (12:19→22:12)
[2021-10-26] MEDS: Vancomycin 1,750 MG/517.5 ML IV.SOLN IVPB SCH (14:47)
[2021-10-26] MEDS: Benzonatate 100 MG CAPSULE PO PRN (18:21)
[2021-10-26] MEDS: Aspirin 81 MG TAB.CHEW PO SCH (22:06)
[2021-10-26] MEDS: hydrOXYzine pamoate 25 MG CAPSULE PO PRN (22:06)
[2021-10-26] MEDS: Haloperidol Lactate 5 MG/ML VIAL IVP PRN (23:46)
[2021-10-27] MEDS: *HR* Heparin 5,000 UNIT/ML VIAL SQ SCH ×3 (05:20→19:48)
[2021-10-27] MEDS: *HR* OxyCODONE/APAP 10/325 TABLET PO PRN ×2 (09:32→22:12)
[2021-10-27] MEDS: Metoprolol XL (24 HR) Succ 50 MG TAB.ER.24H PO SCH (09:50)
[2021-10-27] MEDS: Gabapentin 100 MG CAPSULE PO SCH ×3 (09:50→20:03)
[2021-10-27] MEDS: ALPRAZolam 0.25 MG TABLET PO PRN ×2 (09:51→15:52)
[2021-10-27] MEDS: Spironolactone 25 MG TABLET PO SCH (09:51)
[2021-10-27] MEDS: hydrOXYzine pamoate 25 MG CAPSULE PO PRN ×2 (09:51→15:52)
[2021-10-27] MEDS: Furosemide 20 MG TABLET PO SCH (09:51)
[2021-10-27] MEDS: Haloperidol Lactate 5 MG/ML VIAL IVP PRN ×2 (09:51→18:39)
[2021-10-27] MEDS: Sacubitril/Valsartan 24/26 MG 1 TABLET PO SCH ×2 (09:51→20:03)
[2021-10-27] MEDS: Insulin LISPRO 300 UNITS/3 ML VIAL SUBQ SCH ×4 (10:02→19:49)
[2021-10-27 10:06] LABS: BUN/Creatinine Ratio 12 (6-26); Blood Urea Nitrogen 14 mg/dL (8-23); Carbon Dioxide 30 mEq/L (23-29); Chloride 100 mEq/L (98-107); Glucose 178 mg/dL (70-105); Osmolality,Calculated 289 (280-300); Potassium 3.2 mEq/L (3.5-5.1); Sodium 137 mEq/L (136-145); eGFR For African Americans > 60 (> 60); eGFR For Non-African Americans > 60 (> 60)
[2021-10-27] MEDS: Thiamine (B-1) 100 MG in 0.9 % Sodium Chloride 50 ML IVPB SCH ×2 (10:44→20:09)
[2021-10-27] MEDS: Benzonatate 100 MG CAPSULE PO PRN (13:31)
[2021-10-27] MEDS: Vancomycin 1,750 MG/517.5 ML IV.SOLN IVPB SCH (13:31)
[2021-10-27] MEDS: Aspirin 81 MG TAB.CHEW PO SCH (20:03)
[2021-10-28] MEDS: ALPRAZolam 0.25 MG TABLET PO PRN ×2 (00:56→10:10)
[2021-10-28] MEDS: hydrOXYzine pamoate 25 MG CAPSULE PO PRN (00:57)
[2021-10-28] MEDS: Haloperidol Lactate 5 MG/ML VIAL IVP PRN (02:07)
[2021-10-28] MEDS: *HR* OxyCODONE/APAP 10/325 TABLET PO PRN ×2 (04:47→10:27)
[2021-10-28] MEDS: Benzonatate 100 MG CAPSULE PO PRN (04:47)
[2021-10-28] MEDS: *HR* Heparin 5,000 UNIT/ML VIAL SQ SCH (05:07)
[2021-10-28 07:37] VITALS: O2SAT 97
[2021-10-28] MEDS: Gabapentin 100 MG CAPSULE PO SCH (10:10)
[2021-10-28] MEDS: Sacubitril/Valsartan 24/26 MG 1 TABLET PO SCH (10:10)
[2021-10-28] MEDS: Metoprolol XL (24 HR) Succ 50 MG TAB.ER.24H PO SCH (10:10)
[2021-10-28] MEDS: Furosemide 20 MG TABLET PO SCH (10:10)
[2021-10-28] MEDS: Spironolactone 25 MG TABLET PO SCH (10:11)
[2021-10-28] MEDS: Insulin LISPRO 300 UNITS/3 ML VIAL SUBQ SCH (10:11)
[2021-10-28] MEDS: Thiamine (B-1) 100 MG in 0.9 % Sodium Chloride 50 ML IVPB SCH (11:51)
[2021-10-28 11:58] VITALS: BP 160/95; PULSE 77; TEMP 97.8
== END 2021-10-28 13:03 | DRG 189 ==
LOC: EMEROOARM 16:49 → 3NENU 16:49 → SUATTDRO 10-19 08:39 → 3NENU 10-19 10:00 → SUATTDRO 10-21 14:10
PROVIDERS: ADMIT Internal Medicine; ATTEND Family Medicine

== ENCOUNTER 2021-10-30 17:02 | Inpatient (IN) ==
[2021-10-30] MEDS ORDERED: Iopamidol - 370 500 ML MLS IVP ONE ×2 (18:03→18:32)
[2021-10-30] MEDS ORDERED: *HR* EPINEPHrine 100 MCG/10 ML SYRINGE IVP ONE (18:37)
[2021-10-30] MEDS ORDERED: 0.9 % Sodium Chloride 250 ML ONE (18:40)
[2021-10-30] MEDS ORDERED: *HR* Norepinephrine 4 MG/4 ML VIAL IVC ONE (18:40)
[2021-10-30 18:41] LABS: ABG Base Excess 1 mEq/L (-2 to 3); ABG HCO3 36 mEq/L (21-27); ABG Oxygen Saturation 98 % (95-98); ABG PCO2 147 mmHg (35-45); ABG PO2 179 mmHg (85-104); ABG TCO2 41 mEq/L (20-26)
[2021-10-30] MEDS: Norepinephrine 4 MG/254 ML IV.SOLN IVC SCH (18:45)
[2021-10-30 18:48] LABS: Basophils % 0.2 %; Eosinophils % 0.1 %; Hematocrit 36.6 % (37.5-50.1); Hemoglobin 10.5 g/dL (12.9-16.9); Immature Granulocytes % 2.3 % (0-4); Lymphocytes # 0.8 K/mcL (0.6-4.6); Lymphocytes % 4.8 %; Mean Corpuscular HGB Conc 28.7 g/dL (31.6-35.5); Mean Corpuscular Volume 97.6 fL (83.0-100.0); Mean Platelet Volume 9.3 fL (9.4-12.4); Monocytes # 0.3 K/mcL (0.0-1.3); Monocytes % 1.9 %; Neutrophils # 14.4 K/mcL (1.6-8.9); Platelet Count 242 K/mcL (140-400); Red Blood Count 3.75 M/mcL (4.19-5.50); Red Cell Distribution Width 14.5 % (11.5-14.5); Segmented Neutrophils % 90.7 %; White Blood Count 15.9 K/mcL (4.3-11.1)
[2021-10-30 18:51] LABS: Hypochromasia Present (Not Present)
[2021-10-30 18:54] LABS: INR 1.1; Prothrombin Time 12.5 Seconds (9.4-12.1)
[2021-10-30] MEDS ORDERED: Piperacillin/Tazobactam 3.375 GM in 0.9 % Sodium Chloride Mini Bag 100 ML IVPB ONE (19:04)
[2021-10-30 19:09] LABS: Alanine Aminotransferase 14 Units/L (7-52); Albumin/Globulin Ratio 1.3 (1.1-2.2); Alkaline Phosphatase 63 Units/L (34-104); Aspartate Amino Transferase 13 Units/L (13-39); BUN/Creatinine Ratio 12 (6-26); Bilirubin,Total 0.3 mg/dL (0.3-1.0); Blood Urea Nitrogen 25 mg/dL (8-23); Calcium 8.6 mg/dL (8.6-10.3); Carbon Dioxide 30 mEq/L (23-29); Chloride 99 mEq/L (98-107); Creatine Kinase 13 Units/L (30-223); Ethanol < 10 mg/dL (Less than 10); Globulin 3.2 g/dL (2.4-3.5); Glucose 186 mg/dL (70-105); Lipase 10 Units/L (11-82); Magnesium 1.9 mg/dL (1.6-2.6); Osmolality,Calculated 299 (280-300); Potassium 4.6 mEq/L (3.5-5.1); Sodium 140 mEq/L (136-145); Total Protein 7.2 g/dL (6.4-8.9); Troponin I < 0.03 ng/mL (< 0.04)
[2021-10-30] MEDS: 0.9 % Sodium Chloride 1,000 ML IVC SCH ×2 (19:17→20:18)
[2021-10-30 19:35] LABS: Vancomycin,Random 33 mcg/mL
[2021-10-30 21:14] LABS: Amphetamine Screen,Urine Negative ng/mL (Cutoff=1000); Barbiturate Screen,Urine Negative ng/mL (Cutoff=200); Benzodiazepines Screen,Urine Negative ng/mL (Cutoff=200); Cannabinoid Screen,Urine Negative ng/mL (Cutoff = 50); Cocaine Screen,Urine Negative ng/mL (Cutoff= 300); Opiate Screen,Urine Negative ng/mL (Cutoff=300); Phencyclidine Screen,Urine Negative ng/mL (Cutoff=25)
[2021-10-30] MEDS ORDERED: Albuterol 2.5 MG/3 ML NEBULIZER IH ONE (21:28)
[2021-10-30] MEDS ORDERED: Ipratropium/Albuterol Neb 3 ML IH ONE (21:28)
[2021-10-30 21:46] LABS: Adenovirus Not Detected (Not Detect); Bordetella Pertussis Not Detected (Not Detect); Chlamydophila pneumoniae Not Detected (Not Detect); Coronavirus 229E Not Detected (Not Detect); Coronavirus HKU1 Not Detected (Not Detect); Coronavirus NL63 Not Detected (Not Detect); Coronavirus OC43 Not Detected (Not Detect); Human Metapneumovirus Not Detected (Not Detect); Human Rhinovirus/Enterovirus Not Detected (Not Detect); Influenza A Subtype 2009 H1 Not Detected (Not Detect); Influenza B Not Detected (Not Detect); Mycoplasma pneumoniae Not Detected (Not Detect); Parainfluenza Virus 1 Not Detected (Not Detect); Parainfluenza Virus 2 Not Detected (Not Detect); Parainfluenza Virus 3 Not Detected (Not Detect); Parainfluenza Virus 4 Not Detected (Not Detect); Respiratory Syncytial Virus Not Detected (Not Detect); SARS-CoV-2 Not Detected (Not Detect)
[2021-10-30 21:55] LABS: Bacteria,Urine Few per hpf (None-Few); Granular Casts,Urine Few per lpf (None Seen); Hyaline Casts,Urine Few per lpf (None Seen); Mucus,Urine Few per lpf (None-Few); Squamous Epithelial Cell,Urine Few per hpf (None-Few); Transitional Epi Cells,Urine Few per hpf (None-Few); WBC,Urine 30-50 per hpf (0-3)
[2021-10-30 22:00] LABS: ABG Base Excess 1 mEq/L (-2 to 3); ABG HCO3 32 mEq/L (21-27); ABG Oxygen Saturation 100 % (95-98); ABG PCO2 102 mmHg (35-45); ABG PH 7.11 pH Units (7.32-7.45); ABG PO2 234 mmHg (85-104); ABG TCO2 36 mEq/L (20-26)
[2021-10-30 22:26] LABS: Color,Urine LIGHT YELLOW (Yellow)
[2021-10-30 22:27] LABS: Bilirubin,Urine Negative (Negative); Blood,Urine Trace (Negative); Glucose,Urine (UA) >=1000 mg/dL (Normal); Ketones,Urine Trace mg/dL (Negative); Specific Gravity,Urine 1.018 (1.010-1.025)
[2021-10-30 22:28] LABS: Leukocyte Esterase,Urine Moderate (Negative); Nitrite,Urine Negative (Negative); Protein,Urine 100 mg/dL (Neg-Trace); Urobilinogen,Urine Normal (Normal)
[2021-10-30 22:33] LABS: Clarity,Urine Clear (Clear)
[2021-10-30] MEDS ORDERED: 0.9 % Sodium Chloride 1,000 ML IVC ONE (22:33)
[2021-10-31 01:51] LABS: VBG HCO3 28 mEq/L (21-27); VBG PCO2 70 mmHg (41-51); VBG PH 7.21 pH Units (7.32-7.42); VBG PO2 57 mmHg (25-50)
[2021-10-31 02:04] LABS: ABG Base Excess 0 mEq/L (-2 to 3); ABG HCO3 27 mEq/L (21-27); ABG Oxygen Saturation 96 % (95-98); ABG PCO2 49 mmHg (35-45); ABG PH 7.34 pH Units (7.32-7.45); ABG PO2 91 mmHg (85-104); ABG TCO2 28 mEq/L (20-26)
[2021-10-31] MEDS ORDERED: Melatonin 3 MG TABLET PO PRN (02:35)
[2021-10-31] MEDS ORDERED: Naloxone 0.4 MG/ML INJ IVP PRN (02:35)
[2021-10-31] MEDS ORDERED: *HR* Dextrose 50 % in Water (Syg) 50 ML SYRINGE IVP PRN (02:37)
[2021-10-31] MEDS ORDERED: Dextrose Gel 15 GM/37.5 ML TUBE PO PRN ×2 (02:37)
[2021-10-31] MEDS ORDERED: D5% in Water 1,000 ML IVC PRN (02:37)
[2021-10-31] MEDS ORDERED: Albuterol 2.5 MG/3 ML NEBULIZER IH PRN (02:39)
[2021-10-31] MEDS ORDERED: Vancomycin 2,000 MG/520 ML IV.SOLN IVPB ONE (03:00)
[2021-10-31] MEDS ORDERED: Ipratropium/Albuterol Neb 3 ML IH PRN (04:00)
[2021-10-31] MEDS: *HR* Heparin 5,000 UNIT/ML VIAL SQ SCH ×3 (05:54→21:38)
[2021-10-31] MEDS ORDERED: Insulin LISPRO 300 UNITS/3 ML VIAL SUBQ SCH ×2 (06:00→21:00)
[2021-10-31] MEDS ORDERED: Cefepime HCl 2,000 MG in 0.9 % Sodium Chloride Mini Bag 100 ML IVPB SCH (08:00)
[2021-10-31 08:13] LABS: Albumin 3.4 g/dL (3.5-5.7); Albumin/Globulin Ratio 1.3 (1.1-2.2); Bilirubin,Total 0.3 mg/dL (0.3-1.0); Globulin 2.7 g/dL (2.4-3.5); Magnesium 1.5 mg/dL (1.6-2.6); Phosphorous 2.4 mg/dL (2.7-4.5); Potassium 3.5 mEq/L (3.5-5.1); Total Protein 6.1 g/dL (6.4-8.9)
[2021-10-31] MEDS: predniSONE 20 MG TABLET PO SCH (09:04)
[2021-10-31] MEDS: Insulin LISPRO 300 UNITS/3 ML VIAL SUBQ SCH ×3 (09:05→16:47)
[2021-10-31] MEDS ORDERED: *HR* Alteplase (Cathflo) 2 MG VIAL IVP ONE (10:13)
[2021-10-31 10:23] LABS: Basophils % 0.1 %; Eosinophils % 0.1 %; Hematocrit 28.2 % (37.5-50.1); Hemoglobin 8.7 g/dL (12.9-16.9); Immature Granulocytes % 0.8 % (0-4); Lymphocytes # 0.9 K/mcL (0.6-4.6); Mean Corpuscular HGB Conc 30.9 g/dL (31.6-35.5); Mean Corpuscular Hemoglobin 28.9 pg (28.0-33.3); Mean Corpuscular Volume 93.7 fL (83.0-100.0); Monocytes # 0.6 K/mcL (0.0-1.3); Monocytes % 8.2 %; Platelet Count 177 K/mcL (140-400); Red Blood Count 3.01 M/mcL (4.19-5.50); Red Cell Distribution Width 13.7 % (11.5-14.5); Segmented Neutrophils % 78.8 %; White Blood Count 7.6 K/mcL (4.3-11.1)
[2021-10-31 13:58] LABS: INR 1.1; Prothrombin Time 12.3 Seconds (9.4-12.1)
[2021-10-31 14:01] LABS: Activated Partial Thrombo Time 27.2 Seconds (26.0-36.0)
[2021-10-31] MEDS ORDERED: Baclofen 10 MG TABLET PO PRN (14:58)
[2021-10-31] MEDS ORDERED: hydrOXYzine pamoate 25 MG CAPSULE PO PRN (15:00)
[2021-10-31] MEDS ORDERED: Azithromycin 250 MG TABLET PO ONE (15:05)
[2021-10-31] MEDS: *HR* OxyCODONE/APAP 10/325 TABLET PO PRN ×2 (15:32→21:37)
[2021-10-31] MEDS: Metoprolol XL (24 HR) Succ 50 MG TAB.ER.24H PO SCH (15:32)
[2021-10-31] MEDS: Cefepime HCl 2,000 MG in 0.9 % Sodium Chloride Mini Bag 100 ML IVPB SCH (15:33)
[2021-10-31 15:34] LABS: ABG Base Excess 1 mEq/L (-2 to 3); ABG HCO3 26 mEq/L (21-27); ABG Oxygen Saturation 95 % (95-98); ABG PCO2 43 mmHg (35-45); ABG PH 7.39 pH Units (7.32-7.45); ABG PO2 75 mmHg (85-104); ABG TCO2 27 mEq/L (20-26)
[2021-10-31] MEDS: Budesonide/Formoterol 160/4.5 1 PUFF INH IH SCH ×2 (15:42→20:11)
[2021-10-31] MEDS: Ipratropium/Albuterol Neb 3 ML IH SCH ×2 (16:25→20:11)
[2021-10-31] MEDS ORDERED: Pantoprazole 40 MG VIAL IVP SCH (18:00)
[2021-10-31] MEDS: Acetaminophen 325 MG TABLET PO PRN (19:37)
[2021-10-31] MEDS ORDERED: Aspirin 81 MG TAB.CHEW PO SCH (21:00)
[2021-10-31] MEDS ORDERED: Carbamide Peroxide 150 DROP/15 ML BOTTLE BOTH EARS SCH (21:00)
[2021-11-01] MEDS: Cefepime HCl 2,000 MG in 0.9 % Sodium Chloride Mini Bag 100 ML IVPB SCH ×2 (01:28→08:27)
[2021-11-01] MEDS: Norepinephrine 4 MG/254 ML IV.SOLN IVC SCH (01:42)
[2021-11-01] MEDS ORDERED: Vancomycin 1,500 MG/265 ML IV.SOLN IVPB SCH ×2 (03:00→06:00)
[2021-11-01] MEDS ORDERED: Ondansetron ODT 4 MG TAB.RAPDIS SL PRN (03:21)
[2021-11-01] MEDS: *HR* OxyCODONE/APAP 10/325 TABLET PO PRN (03:39)
[2021-11-01] MEDS: Acetaminophen 325 MG TABLET PO PRN (03:39)
[2021-11-01 04:01] LABS: Hematocrit 25.8 % (37.5-50.1); Hemoglobin 8.2 g/dL (12.9-16.9); Mean Corpuscular HGB Conc 31.8 g/dL (31.6-35.5); Mean Corpuscular Hemoglobin 28.6 pg (28.0-33.3); Mean Corpuscular Volume 89.9 fL (83.0-100.0); Mean Platelet Volume 9.3 fL (9.4-12.4); Platelet Count 166 K/mcL (140-400); Red Blood Count 2.87 M/mcL (4.19-5.50); Red Cell Distribution Width 13.7 % (11.5-14.5); White Blood Count 6.9 K/mcL (4.3-11.1)
[2021-11-01 04:21] LABS: Magnesium 1.8 mg/dL (1.6-2.6); Potassium 3.2 mEq/L (3.5-5.1)
[2021-11-01] MEDS: Ipratropium/Albuterol Neb 3 ML IH SCH ×3 (04:42→10:15)
[2021-11-01] MEDS: *HR* Heparin 5,000 UNIT/ML VIAL SQ SCH (05:51)
[2021-11-01 07:01] VITALS: TEMP 97.7
[2021-11-01] MEDS ORDERED: Potassium Chloride Elixir 20 MEQ/15 ML UDC PO ONE (07:09)
[2021-11-01] MEDS: predniSONE 20 MG TABLET PO SCH (08:27)
[2021-11-01] MEDS: Insulin LISPRO 300 UNITS/3 ML VIAL SUBQ SCH (08:28)
[2021-11-01] MEDS: Metoprolol XL (24 HR) Succ 50 MG TAB.ER.24H PO SCH (08:28)
[2021-11-01] MEDS ORDERED: Loratadine 10 MG TABLET PO SCH (09:00)
[2021-11-01] MEDS ORDERED: Pantoprazole 40 MG VIAL IVP SCH (09:00)
[2021-11-01] MEDS ORDERED: Azithromycin 250 MG TABLET PO SCH (09:00)
[2021-11-01] MEDS: Budesonide/Formoterol 160/4.5 1 PUFF INH IH SCH (10:14)
[2021-11-01] MEDS ORDERED: *HR* LORazepam 1 MG TABLET PO PRN (10:53)
[2021-11-01 12:24] VITALS: BP 120/68; PULSE 79; O2SAT 93
== END 2021-11-01 12:54 | DRG 871 ==
LOC: 2NNU 17:02 → EMEROOARM 17:02 → 2NNU 10-31 02:45 → SUATTDRO 10-31 04:53 → 2ANU 10-31 22:27
PROVIDERS: ADMIT Internal Medicine; ATTEND Student in an Organized Health Care Education/Training Program